=== PATIENT | female | born 1945 | race Caucasian/White ===

== ENCOUNTER 2017-01-22 11:04 | Inpatient (IN) | payer OTHER, MEDICARE ==
[~2017-01-22] VITALS: Ht 160 cm; Wt 63.5 kg
--- NOTE | ~2017-01-22 | EKG ---
[address] [place] [employer] [place] [address] ELECTROCARDIOGRAM REPORT Name: DIANNSAVANAH Room #: 417-I ADM IN ..#: [id number] Admission: 01/22/17 Attend Phys: Judi Patel MD Discharge: Date of : 43 Report #: [id number] THIS REPORT FOR: //name// [facility] Test Date: 2017-01-23 Test Time: 08:28:03 Pat Name: SAVANAH TIDWELL Department: Room: [facility] Gender: F Bat Boy/Girl: danny : 1945 Requested By: José Nicholson Order Number: [id number] MD: Todd Lozano Measurements Intervals [place] Rate: 93 P: 72 [place]: 199 QRS: 72 QRSD: 107 T: 0 QT: 346 QTc: 431 Interpretive Statements Sinus rhythm Probable left atrial enlargement Borderline T abnormalities, inferior leads No previous ECG available for comparison Electronically Signed On 01-24-2017 9:11:01 CDT by Todd Lozano [email or web address] <ELECTRONICALLY SIGNED> By: Todd Lozano MD, [facility] 01/24/17 0911 7 7 Todd Lozano MD, [facility] /EPI
--- NOTE | ~2017-01-22 | EKG ---
[address] [place] [address] ELECTROCARDIOGRAM REPORT Name: SWAPNIL TIDWELLZABETH Loki Room #: 417-I ADM IN ..#: [id number] Admission: 01/22/17 Attend Phys: Buck Vieyra MD Discharge: Date of : 43 Report #: [id number] THIS REPORT FOR: //name// [facility] ED Test Date: 2017-01-22 Test Time: 11:14:29 Pat Name: SAVANAH TIDWELL Department: Room: [facility] Gender: F Card Services Specialist: Eloy FU : 1945 Requested By: Jose Alberto Monique Order Number: [id number] MD: Todd Lozano Measurements Intervals [place] Rate: 106 P: 81 VA: 205 QRS: 79 QRSD: 109 T: 11 QT: 323 QTc: 429 Interpretive Statements Sinus tachycardia Nonspecific ST segment abnormality No previous ECG available for comparison Electronically Signed On 01-23-2017 15:03:38 CDT by Todd Lozano [email or web address] <ELECTRONICALLY SIGNED> By: Todd Lozano MD, [facility] 01/23/17 1503 1114 1114 Todd Lozano MD, FACC /EPI
--- NOTE | ~2017-01-22 | HC ---
[facility] [place] [address] CONSULTATION Name: SAVANAH TIDWELL Room #: 417-I ADM IN M.R.#: [id number] Admission: 01/22/17 Attend Phys: Buck Vieyra MD Discharge: Date of : 43 Report #: [id number] THIS REPORT FOR: //name// CC: Kurt Vieyra REASON FOR CONSULTATION: Pneumonia. IMPRESSION: 1. Community-acquired pneumonia. 2. Exacerbation of chronic obstructive pulmonary disease. 3. Possible sinusitis. 4. Hyponatremia. 5. Leukocytosis. 6. Tobacco use. 7. Hypertension. 8. Anemia. 9. History of pulmonary nodule. 10. Coronary atherosclerosis. PLAN: We will use Unasyn, azithro, Mucinex. We will do corticosteroids. We will hold off on her Symbicort while here and do levalbuterol, budesonide and ipratropium bromide. We will do the usual DVT and ulcer prophylaxis. We will send off cultures. HISTORY: A very pleasant 71-year-old female comes in with progressive shortness of breath, cough, sputum production. Her also had similar illness; however, recovered from it. She denies any definite chest pain or palpitations. No nausea or vomiting. Her allergies have been bothering her somewhat. HOME MEDICATIONS: Included losartan, potassium, hydrochlorothiazide, vitamin D, verapamil, nicotine patch, atorvastatin, ProAir, Symbicort, aspirin, calcium. PAST MEDICAL HISTORY: Include hypertension, allergies, bronchitis, thoracic abdominal aortic aneurysm 4.5 x 4.8, and diaphragmatic hiatus. PAST SURGICAL HISTORY: Include biopsy of breast in 69 and 84 and eye surgery. FAMILY HISTORY: Positive for diabetes, hypertension, renal failure. 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 ALLERGIES: KEFLEX with diarrhea. REVIEW OF SYSTEMS: Positive for cough, shortness of breath and discolored sputum. No definite chest pain. Positive cough, sputum production. No [facility] or [facility] [address] [place] [address] CONSULTATION Name: SAVANAH TIDWELL Room #: 417-I [facility] IN [facility]#: [id number] Admission: 01/22/17 Attend Phys: Buck Vieyar MD Discharge: Date of : 43 Report #: [id number] cold intolerance. PHYSICAL EXAMINATION: VITAL SIGNS: T-max 99.4, pulse 99, respirations 18, BP 152/77. GENERAL: She looks very tired compared to when I saw her last year and she relates it is because of what has been going on and otherwise she has been doing great. HEENT: sinuses tender. Posterior pharynx, no thrush. LUNGS: Coarse wheeze bilateral. HEART: Regular. ABDOMEN: Bowel sounds Present. EXTREMITIES: Showed no calf tenderness or edema. She is alert, oriented. EKG showed sinus tach, probable left atrial enlargement. ABG showed pH of 7.48, pCO2 of 34, and pO2 53. Chest x-ray showed bilateral infiltrates. White count 13.9, hemoglobin 14, platelets 279, BUN 9, creatinine 0.5, sodium 124, potassium 3.4, ProBNP 383. I appreciate the opportunity to assist in care of your patient. <ELECTRONICALLY SIGNED> By: José Nicholson MD 01/24/17 0548 1714 2337 José Nicholson MD /nt
[2017-01-22 11:34] LABS: ABG SAMPLE TYPE ARTERIAL; BE(vivo) 1.9 mmol/L (-2 to +3); HCO3 24.8 mmol/L (22.0-26.0); O2(CT) 17.5 mL/dL (15.0-23.0); PCO2 33.8 mmHg (35.0-45.0); pH 7.483 (7.360-7.450); sO2 90.2 % (92.0-98.0); tCO2 25.8 mmol/L (24.0-30.0)
[2017-01-22 11:35] LABS: O2Hb 84.9 % (92.0-98.0); PO2 53.3 mmHg (80.0-100.0); STICK SITE L.RADIAL
[2017-01-22 11:37] VITALS: BP 125/78
[2017-01-22 12:10] LABS: HEMATOCRIT 40.6 % (37.0-47.0); MCH 31.8 pg (26.0-34.0); MCHC 34.4 g/dL (28.0-37.0); MCV 92.5 fL (80.0-100.0); RBC 4.39 mil/uL (4.20-5.00); RDW 15.2 % (10.5-14.5); WBC 13.9 thou/uL (4.0-11.0)
[2017-01-22] MEDS ORDERED: SYMBICORT160 MCG/4. INH (12:10)
[2017-01-22] MEDS ORDERED: HYDROCHLOROTH12.5 M2 PO (12:11)
[2017-01-22] MEDS ORDERED: VERAPAMIL ER180 MG PO (12:11)
[2017-01-22] MEDS ORDERED: LIPITOR 20 MG T20 M1 PO (12:11)
[2017-01-22] MEDS ORDERED: K-DUR 20 MEQ T20 MEQ PO (12:11)
[2017-01-22] MEDS ORDERED: UNICOMPLEX M TA1 TA1 PO (12:12)
[2017-01-22] MEDS ORDERED: ASPIR 8181 M1 PO (12:12)
[2017-01-22] MEDS ORDERED: VENTOLIN HFA 1818 GM INH (12:13)
[2017-01-22 12:21] LABS: CALCIUM 8.9 mg/dL (8.5-10.1); CREATININE 0.5 mg/dL (0.6-1.0); POTASSIUM 3.4 mmol/L (3.5-5.1)
[2017-01-22 13:59] VITALS: BP 145/71
[2017-01-22 14:22] VITALS: BP 148/72
[2017-01-22] MEDS ORDERED: COZAAR 50 MG TA50 M1 PO (14:53)
[2017-01-22 15:39] VITALS: BP 152/77
[2017-01-22 18:35] LABS: ALBUMIN 3.1 g/dL (3.4-5.0); DIRECT BILIRUBIN 0.2 mg/dL (<0.1-0.3); TOTAL BILIRUBIN 0.5 mg/dL (<0.1-1.0); TOTAL PROTEIN 6.5 g/dL (6.4-8.2)
[2017-01-22 20:00] VITALS: BP 139/67
[2017-01-23 04:30] VITALS: BP 143/82
[2017-01-23 05:53] LABS: HEMATOCRIT 36.2 % (37.0-47.0); HEMOGLOBIN 12.7 gm/dL (12.0-15.0); MCH 32.5 pg (26.0-34.0); MCV 92.9 fL (80.0-100.0); PLATELET COUNT 278 thou/uL (150-400); RDW 14.7 % (10.5-14.5); WBC 13.8 thou/uL (4.0-11.0)
[2017-01-23 05:54] LABS: MANUAL DIFF YES
[2017-01-23 06:17] LABS: CREATININE 0.6 mg/dL (0.6-1.0); MAGNESIUM 1.8 mg/dL (1.8-2.4); POTASSIUM 3.8 mmol/L (3.5-5.1); TROPONIN-I < 0.04 ng/mL (<0.04-0.07)
[2017-01-23 07:13] VITALS: BP 155/79
[2017-01-23 09:29] LABS: ABSOLUTE NEUTROPHILS 12.8 thou/uL (1.4-8.2); ANISOCYTOSIS 1+; METAMYELOCYTES 1 %; TOTAL CELL COUNT 100
[2017-01-23 15:37] VITALS: BP 103/58
[2017-01-23 20:00] VITALS: BP 141/66
[2017-01-24 04:00] VITALS: BP 143/77
[2017-01-24 05:43] LABS: HEMATOCRIT 36.5 % (37.0-47.0); HEMOGLOBIN 12.3 gm/dL (12.0-15.0); MANUAL DIFF YES; MCH 31.8 pg (26.0-34.0); MCHC 33.7 g/dL (28.0-37.0); MCV 94.3 fL (80.0-100.0); PLATELET COUNT 299 thou/uL (150-400); RBC 3.87 mil/uL (4.20-5.00); RDW 15.2 % (10.5-14.5); WBC 13.3 thou/uL (4.0-11.0)
[2017-01-24 05:52] LABS: CREATININE 0.6 mg/dL (0.6-1.0); POTASSIUM 4.2 mmol/L (3.5-5.1)
[2017-01-24 07:19] VITALS: BP 166/93
[2017-01-24 08:54] LABS: ABSOLUTE NEUTROPHILS 11.6 thou/uL (1.4-8.2); ANISOCYTOSIS 1+; ATYPICAL LYMPHS 1 %; TOTAL CELL COUNT 100
[2017-01-24 20:00] VITALS: BP 161/78
[2017-01-24 21:37] LABS: ABG SAMPLE TYPE ARTERIAL; BE(vivo) 4.4 mmol/L (-2 to +3); HCO3 30.4 mmol/L (22.0-26.0); LACTATE 1.39 mmol/L (0.5-2.0); O2Hb 93.7 % (92.0-98.0); PCO2 51.1 mmHg (35.0-45.0); PO2 76.3 mmHg (80.0-100.0); pH 7.393 (7.360-7.450)
[2017-01-24 21:38] LABS: STICK SITE LRA
[2017-01-25 03:43] VITALS: BP 161/92
[2017-01-25 06:55] LABS: HEMATOCRIT 38.6 % (37.0-47.0); MCH 31.8 pg (26.0-34.0); MCHC 33.8 g/dL (28.0-37.0); RBC 4.1 mil/uL (4.20-5.00); RDW 15.1 % (10.5-14.5); WBC 13.6 thou/uL (4.0-11.0)
[2017-01-25 07:08] VITALS: BP 180/110
[2017-01-25 07:23] LABS: CALCIUM 8.8 mg/dL (8.5-10.1); CREATININE 0.5 mg/dL (0.6-1.0); POTASSIUM 4.5 mmol/L (3.5-5.1)
[2017-01-25 16:31] VITALS: BP 156/82
[2017-01-25 20:00] VITALS: BP 187/83
[2017-01-25 22:06] LABS: INFLUENZA B Negative (Negative); METAPNEUMOVIRUS Negative (Negative)
[2017-01-26 04:56] VITALS: BP 167/76
[2017-01-26 05:58] LABS: HEMATOCRIT 37.7 % (37.0-47.0); HEMOGLOBIN 12.6 gm/dL (12.0-15.0); MCH 31.7 pg (26.0-34.0); MCHC 33.6 g/dL (28.0-37.0); MCV 94.5 fL (80.0-100.0); RBC 3.99 mil/uL (4.20-5.00); RDW 14.9 % (10.5-14.5); WBC 11.5 thou/uL (4.0-11.0)
[2017-01-26 06:14] LABS: CALCIUM 8.2 mg/dL (8.5-10.1); CREATININE 0.4 mg/dL (0.6-1.0); POTASSIUM 4.1 mmol/L (3.5-5.1)
[2017-01-26 06:57] VITALS: BP 173/87
[2017-01-26 07:01] VITALS: BP 182/97
[2017-01-26 16:11] VITALS: BP 159/92
[2017-01-26 20:00] VITALS: BP 155/70
[2017-01-27 03:20] VITALS: BP 158/81
[2017-01-27 07:30] VITALS: BP 175/83
[2017-01-27 17:59] VITALS: BP 164/71
[2017-01-27 21:00] VITALS: BP 146/72
[2017-01-28 04:30] VITALS: BP 170/87
[2017-01-28 07:06] VITALS: BP 197/102
[2017-01-28 17:01] VITALS: BP 197/102
[2017-01-28 20:21] VITALS: BP 154/78
[2017-01-29 04:08] LABS: HEMATOCRIT 40.7 % (37.0-47.0); HEMOGLOBIN 13.8 gm/dL (12.0-15.0); MCH 31.6 pg (26.0-34.0); MCHC 33.8 g/dL (28.0-37.0); MCV 93.3 fL (80.0-100.0); RBC 4.36 mil/uL (4.20-5.00); RDW 14.7 % (10.5-14.5)
[2017-01-29 04:17] LABS: CALCIUM 8.3 mg/dL (8.5-10.1); CREATININE 0.5 mg/dL (0.6-1.0); POTASSIUM 3.7 mmol/L (3.5-5.1)
[2017-01-29 05:33] VITALS: BP 162/76
[2017-01-29] MEDS ORDERED: PREDNISONE 20 M20 M1 PO (07:58)
[2017-01-29] MEDS ORDERED: LEVAQUIN 500 M500 M1 PO (07:58)
[2017-01-29] MEDS ORDERED: FLONASE 0.05%50 MCG NASAL (07:59)
[2017-01-29] MEDS ORDERED: PULMICORT0.5 MG/21 INH (07:59)
[2017-01-29 09:11] VITALS: BP 183/90
[2017-01-29 09:57] VITALS: BP 197/102
== END 2017-01-29 14:47 | disposition home health service (06) | DRG 871 ==
LOC: ER 11:04 → 4E 12:56 → EROBS 12:56 → 4E 14:06
PROVIDERS: Emergency Medicine; Family Medicine; Internal Medicine Endocrinology, Diabetes & Metabolism; Internal Medicine Pulmonary Disease; Nurse Practitioner Acute Care
PROC: 02HV33Z Insertion of Infusion Device into Superior Vena Cava, Percutaneous Approach (ICD-10-PCS; principal; 2017-01-24)
PROC: B548ZZA Ultrasonography of Superior Vena Cava, Guidance (ICD-10-PCS; principal; 2017-01-24)
DX: A41.9 Sepsis, unspecified organism (principal); J18.9 Pneumonia, unspecified organism; J96.01 Acute respiratory failure with hypoxia; E87.1 Hypo-osmolality and hyponatremia; J44.1 Chronic obstructive pulmonary disease with (acute) exacerbation; J44.0 Chronic obstructive pulmonary disease with (acute) lower respiratory infection; I10 Essential (primary) hypertension; D64.9 Anemia, unspecified; I25.10 Atherosclerotic heart disease of native coronary artery without angina pectoris; I71.4 Abdominal aortic aneurysm, without rupture; F17.210 Nicotine dependence, cigarettes, uncomplicated; J32.9 Chronic sinusitis, unspecified; I73.9 Peripheral vascular disease, unspecified; Z88.1 Allergy status to other antibiotic agents; Z88.8 Allergy status to other drugs, medicaments and biological substances; Z82.5 Family history of asthma and other chronic lower respiratory diseases; Z79.82 Long term (current) use of aspirin; Z79.899 Other long term (current) drug therapy; Z83.3 Family history of diabetes mellitus; Z82.49 Family history of ischemic heart disease and other diseases of the circulatory system
CPT/HCPCS: 10183; 27001

== ENCOUNTER 2017-12-06 19:51 | Inpatient (IN) | payer OTHER, MEDICARE ==
[~2017-12-06] VITALS: Ht 165.1 cm; Wt 57.6 kg
--- NOTE | ~2017-12-06 | EKG ---
[address] [address] ELECTROCARDIOGRAM REPORT Name: SWAPNIL TIDWELLZABETH Loki Room #: 439-P ADM IN .R.#: [id number] Admission: 12/06/17 Attend Phys: Mehdi Angela MD Discharge: Date of : 43 Report #: [id number] THIS REPORT FOR: //name// [facility] ED Test Date: 2017-12-06 Test Time: 19:58:49 Pat Name: SAVANAH TIDWELL Department: Room: [facility] Gender: F Bark Fitter: GIGI : 1945 Requested By: Yovany Euceda Order Number: [id number] MD: Todd Lozano Measurements Intervals [place] Rate: 75 P: [place]: QRS: 78 QRSD: 111 T: -6 QT: 384 QTc: 429 Interpretive Statements Atrial fibrillation Poor R wave progression Nonspecific intraventricular conduction delay Compared to ECG 01/23/2017 08:28:03 No significant change was found Electronically Signed On 12-07-2017 8:07:47 HOUSE WORKER GENERAL by Todd Lozano [email or web address] <ELECTRONICALLY SIGNED> By: Todd Lozano MD, [facility] 12/07/17806 57 57 Todd Lozano MD, [facility] /EPI
[~2017-12-06 19:51] MED LIST: ASPIR 8181 M1 PO; COZAAR 50 MG TA50 M1 PO; FLONASE 0.05%50 MCG NASAL; HYDROCHLOROTH12.5 M2 PO; K-DUR 20 MEQ T20 MEQ PO; LEVAQUIN 500 M500 M1 PO; LIPITOR 20 MG T20 M1 PO; PREDNISONE 20 M20 M1 PO; PULMICORT0.5 MG/21 INH; SYMBICORT160 MCG/4. INH; UNICOMPLEX M TA1 TA1 PO; VENTOLIN HFA 1818 GM INH; VERAPAMIL ER180 MG PO
[2017-12-06 19:53] VITALS: BP 142/89
[2017-12-06] MEDS ORDERED: HYDROCHLOROTH12.5 M1 PO (20:16)
[2017-12-06] MEDS ORDERED: SYMBICORT160 MCG/4. INH (20:16)
[2017-12-06 20:37] LABS: ABSOLUTE NEUTROPHILS 7.2 thou/uL (1.4-8.2); BASOPHILS 0.8 % (0.0-2.0); EOSINOPHILS 2.5 % (0.0-3.0); HEMATOCRIT 41.4 % (37.0-47.0); HEMOGLOBIN 14.2 gm/dL (12.0-15.0); MCH 32.3 pg (26.0-34.0); MCHC 34.2 g/dL (28.0-37.0); MCV 94.4 fL (80.0-100.0); MONOCYTES 8.5 % (1.0-8.0); PLATELET COUNT 321 thou/uL (150-400); POLYS 74.2 % (36.0-66.0); RBC 4.39 mil/uL (4.20-5.00); RDW 15.6 % (10.5-14.5); WBC 9.7 thou/uL (4.0-11.0)
[2017-12-06 20:41] LABS: CALCIUM 9.9 mg/dL (8.5-10.1); CREATININE 0.4 mg/dL (0.6-1.0); POTASSIUM 3.4 mmol/L (3.5-5.1)
[2017-12-06 20:54] LABS: BE(vivo) 1.4 mmol/L (-2 to +3); HCO3 27.2 mmol/L (22.0-26.0); PCO2 47.2 mmHg (35.0-45.0); PO2 83.9 mmHg (80.0-100.0); pH 7.378 (7.360-7.450)
[2017-12-06 21:24] VITALS: BP 158/71
[2017-12-06 21:36] VITALS: BP 144/66
[2017-12-06] MEDS ORDERED: XANAX 0.5 MG0.5 MG PO (22:07)
[2017-12-06 22:10] VITALS: BP 151/85
[2017-12-07 03:56] VITALS: BP 122/90
[2017-12-07 06:31] LABS: CALCIUM 9.3 mg/dL (8.5-10.1); CREATININE 0.5 mg/dL (0.6-1.0); MAGNESIUM 2.1 mg/dL (1.8-2.4)
[2017-12-07 06:38] LABS: POTASSIUM 4.9 mmol/L (3.5-5.1)
[2017-12-07 07:35] VITALS: BP 147/83
[2017-12-07 16:00] VITALS: BP 116/66
[2017-12-07 21:25] VITALS: BP 116/50
[2017-12-08 05:02] VITALS: BP 140/74
[2017-12-08 05:48] LABS: HEMATOCRIT 39.4 % (37.0-47.0); HEMOGLOBIN 13.4 gm/dL (12.0-15.0); MCH 32.1 pg (26.0-34.0); MCHC 33.9 g/dL (28.0-37.0); MCV 94.8 fL (80.0-100.0); RBC 4.16 mil/uL (4.20-5.00); RDW 15.5 % (10.5-14.5); WBC 9.5 thou/uL (4.0-11.0)
[2017-12-08 06:36] LABS: ALBUMIN 3.6 g/dL (3.4-5.0); CALCIUM 9.5 mg/dL (8.5-10.1); CREATININE 0.6 mg/dL (0.6-1.0); MAGNESIUM 2.3 mg/dL (1.8-2.4); POTASSIUM 4.4 mmol/L (3.5-5.1); TOTAL BILIRUBIN 0.5 mg/dL (<0.1-1.0); TOTAL PROTEIN 6.6 g/dL (6.4-8.2)
[2017-12-08 06:40] LABS: TSH 1.665 uIU/mL (0.358-3.740)
[2017-12-08 09:16] VITALS: BP 140/77
[2017-12-08 16:38] VITALS: BP 133/63
[2017-12-08 19:54] VITALS: BP 125/73
[2017-12-09 03:31] VITALS: BP 145/79
[2017-12-09 08:45] VITALS: BP 130/63
[2017-12-09 15:47] VITALS: BP 138/56
[2017-12-09 19:21] VITALS: BP 145/75
[2017-12-09 23:10] LABS: ADENOVIRUS Negative (Negative); INFLUENZA A Negative (Negative); INFLUENZA B Negative (Negative); METAPNEUMOVIRUS Negative (Negative); PARAINFLUENZA 1 Negative (Negative); PARAINFLUENZA 2 Negative (Negative); PARAINFLUENZA 3 Negative (Negative); RHINOVIRUS Negative (Negative); RSV A Negative (Negative); RSV B Negative (Negative)
[2017-12-10 03:09] VITALS: BP 132/69
[2017-12-10 05:55] LABS: ABSOLUTE NEUTROPHILS 7.8 thou/uL (1.4-8.2); BASOPHILS 0.1 % (0.0-2.0); HEMATOCRIT 39.1 % (37.0-47.0); HEMOGLOBIN 13.2 gm/dL (12.0-15.0); LYMPHOCYTES 5.3 % (24.0-44.0); MCH 32.1 pg (26.0-34.0); MCHC 33.9 g/dL (28.0-37.0); MCV 94.7 fL (80.0-100.0); PLATELET COUNT 289 thou/uL (150-400); POLYS 91.6 % (36.0-66.0); RBC 4.13 mil/uL (4.20-5.00); RDW 15.8 % (10.5-14.5); WBC 8.5 thou/uL (4.0-11.0)
[2017-12-10 06:12] LABS: CALCIUM 9.5 mg/dL (8.5-10.1); CREATININE 0.6 mg/dL (0.6-1.0)
[2017-12-10 06:49] VITALS: BP 148/73
[2017-12-10 15:40] VITALS: BP 117/62
[2017-12-10 20:17] VITALS: BP 139/71
[2017-12-11 04:16] VITALS: BP 138/72
[2017-12-11 07:40] VITALS: BP 157/82
[2017-12-11 16:10] VITALS: BP 142/70
[2017-12-11 20:11] VITALS: BP 147/72
[2017-12-12 04:07] VITALS: BP 139/66
[2017-12-12 07:50] VITALS: BP 153/74
[2017-12-12 15:15] VITALS: BP 152/89
[2017-12-12 16:56] VITALS: BP 152/89
[2017-12-12] MEDS ORDERED: MEDROL DOSPAK21 TA1 PO (17:07)
[2018-05-23] MEDS ORDERED: K-DUR 20 MEQ T20 MEQ PO (18:07)
[2018-05-23] MEDS ORDERED: XANAX 0.25 MG0.25 MG PO (18:07)
[2018-05-23] MEDS ORDERED: PREDNISONE 20 M20 MG PO (18:07)
[2018-05-30] MEDS ORDERED: LEVAQUIN 500 M500 M1 PO (15:19)
[2018-05-30] MEDS ORDERED: NICOTINE TRANSD14 M1 TRANSDERM (15:20)
[2018-05-30] MEDS ORDERED: COZAAR 50 MG TA50 M1 PO (15:21)
[2018-05-30] MEDS ORDERED: VERAPAMIL E.R240 M1 PO (15:21)
[2018-05-30] MEDS ORDERED: CLONAZEPAM 0.50.5 M1 PO (15:22)
[2018-05-30] MEDS ORDERED: PERFOROMIS20 MCG/2 M INH (15:23)
[2018-05-30] MEDS ORDERED: LONHALA MA25 MCG/1 M INH (15:24)
[2018-05-30] MEDS ORDERED: PREDNISONE 10 M10 MG PO (15:25)
[2018-05-30] MEDS ORDERED: HYDRALAZINE 2525 MG PO (15:27)
== END 2017-12-12 19:00 | disposition home or self-care (01) | DRG 871 ==
LOC: ER 19:51 → 4S 21:18 → EROBS 21:18 → 4S 21:41
PROVIDERS: Family Medicine; Hospitalist; Nurse Practitioner Acute Care; Physician Assistant; Registered Nurse
DX: A41.9 Sepsis, unspecified organism (principal); J96.21 Acute and chronic respiratory failure with hypoxia; J44.1 Chronic obstructive pulmonary disease with (acute) exacerbation; I10 Essential (primary) hypertension; E87.6 Hypokalemia; M62.84 Sarcopenia; F41.9 Anxiety disorder, unspecified; T50.905A Adverse effect of unspecified drugs, medicaments and biological substances, initial encounter; Z79.899 Other long term (current) drug therapy; Z88.1 Allergy status to other antibiotic agents; Z88.8 Allergy status to other drugs, medicaments and biological substances; Z87.891 Personal history of nicotine dependence; Z82.5 Family history of asthma and other chronic lower respiratory diseases; Y92.89 Other specified places as the place of occurrence of the external cause
CPT/HCPCS: 10100

== ENCOUNTER → 2018-03-14 | Outpatient (CLI) | payer OTHER, MEDICARE ==
[~2018-03-14] MED LIST changes: +HYDROCHLOROTH12.5 M1 PO; +MEDROL DOSPAK21 TA1 PO; +XANAX 0.5 MG0.5 MG PO
== END ==
LOC: RAD 02:20
DX: Z12.31 Encounter for screening mammogram for malignant neoplasm of breast (principal); R92.1 Mammographic calcification found on diagnostic imaging of breast

== ENCOUNTER → 2018-05-10 | Outpatient (CLI) | payer OTHER, MEDICARE | LOC: RAD 12:07 | DX: R06.02 Shortness of breath (principal); R91.8 Other nonspecific abnormal finding of lung field ==

== ENCOUNTER 2018-07-22 10:27 | Inpatient (IN) | payer OTHER, MEDICARE ==
[~2018-07-22] VITALS: Ht 160 cm; Wt 57.2 kg
--- NOTE | ~2018-07-22 | EKG ---
[address] [address] ELECTROCARDIOGRAM REPORT Name: TIDWELLSAVANAH Room #: 353-P ADM IN .R.#: [id number] Admission: 07/22/18 Attend Phys: Rudi Ma MD Discharge: Date of : 43 Report #: [id number] THIS REPORT FOR: //name// [facility] Test Date: 2018-07-23 Test Time: 11:11:54 Pat Name: SAVANAH TIDWELL Department: Room: 353 Gender: F Sales Consultant: KAT : 1945 Requested By: Rudi Ma Order Number: [id number] MD: Mike Hugo Measurements Intervals [place] Rate: 122 P: 60 [place]: 170 QRS: 81 QRSD: 105 T: 244 QT: 317 QTc: 452 Interpretive Statements Sinus tachycardia Frequent PACs and runs of atrial tachcyardia Probable left atrial enlargement Electronically Signed On 07-24-2018 8:34:37 CDT by Mike Hugo [email or web address] <ELECTRONICALLY SIGNED> By: Mike Hugo MD 07/24/18 0834 1111 1111 Mike Hugo MD /TEA
--- NOTE | ~2018-07-22 | EKG ---
[address] [address] ELECTROCARDIOGRAM REPORT Name: SAVANAH TIDWELL Room #: 353-P ADM IN M.R.#: [id number] Admission: 07/22/18 Attend Phys: Rudi Ma MD Discharge: Date of : 43 Report #: [id number] THIS REPORT FOR: //name// [facility] Test Date: 2018-07-24 Test Time: 10:18:29 Pat Name: SAVANAH TIDWELL Department: Room: 353 Gender: F Ground Crewman: Eloisa PRASAD : 1945 Requested By: Todd Lozano Order Number: [id number] MD: Mike Hugo Measurements Intervals [place] Rate: 120 P: VA: QRS: 76 QRSD: 100 T: 265 QT: 325 QTc: 460 Interpretive Statements Atrial fibrillation Nonspecific repol abnormality, lateral leads Compared to ECG 07/23/2018 11:11:54 Right ventricular hypertrophy now present Early repolarization now present Sinus tachycardia no longer present Electronically Signed On 07-24-2018 13:27:02 CDT by Mike Hugo [email or web address] <ELECTRONICALLY SIGNED> By: Mike Hugo MD 07/24/18 1327 1018 1018 Mike Hugo MD /EPI
--- NOTE | ~2018-07-22 | 2DMMODE ---
[facility] [address] [place] [address] 2 D/M-MODE ECHOCARDIOGRAM Name: DIANNSAVANAH Loki Room #: 353-P ADM IN M.R.#: [id number] Admission: 07/22/18 Attend Phys: Rudi Ma MD Discharge: Date of : 43 Date of Service: 07/25/18 0946 Report #: [id number] THIS REPORT FOR: //name// APPROVED REPORT Study performed: 07/25/2018 08:49:14 EXAM: Comprehensive 2D, Doppler, and color-flow Echocardiogram Patient Location: Echo lab Room #: 353 Status: routine BSA: 1.59 HR: 87 bpm BP: 137/74 mmHg Rhythm: NSR/some arrhythmia noted. Other Information Study Quality: Good Indications Short of breath, CHF, tachycardia. Hx: COPD, HTN 2D Dimensions RVDd: 29.92 mm IVSd: 10.49 (7-11mm) LVOT Diam: 20.22 (18-24mm) LVDd: 47.95 mm PWd: 10.46 (7-11mm) LVDs: 33.24 (25-40mm) Aortic Root: 34.89 mm Volumes Left Atrial Volume (Systole) Single Plane 4CH: 43.21 mL Single Plane 2CH: 50.54 mL LA ESV Index: 31.00 mL/m2 Aortic Valve AoV Peak Deondre.: 1.58 m/s AO Peak Gr.: 9.92 mmHg LVOT Max P.09 mmHg LVOT Max V: 1.23 m/s CORNELIUS Vmax: 2.52 cm2 Mitral Valve E/A Ratio: 0.6 MV Decel. Time: 312.17 ms MV E Max Deondre.: 0.78 m/s [facility] [address] [place] [address] 2 D/M-MODE ECHOCARDIOGRAM Name: SAVANAH TIDWELL Room #: 353-P [facility] IN [facility].#: [id number] Admission: 07/22/18 Attend Phys: Rudi Ma MD Discharge: Date of : 43 Date of Service: 07/25/18 0946 Report #: [id number] MV A Deondre.: 1.38 m/s MV PHT: 90.53 ms IVRT: 83.04 ms Pulmonary Valve PV Peak Deondre.: 1.65 m/s PV Peak Gr.: 10.83 mmHg Pulmonary Vein P Vein S: 0.64 m/s P Vein D: 0.47 m/s P Vein S/D Ratio: 1.36 Tricuspid Valve TR Peak Deondre.: 3.54 m/s RAP Estimate: 5.00 mmHg TR Peak Gr.: 50.15 mmHg PA Pressure: 55.00 mmHg Left Ventricle The left ventricle is normal size. There is normal LV segmental wall motion. There is normal left ventricular wall thickness. Left ventricular systolic function is normal. LVEF is 55-60%. Mild diastolic dysfunction is present (impaired relaxation pattern). Right Ventricle The right ventricle is normal size. The right ventricular systolic function is normal. Atria The left atrium size is normal. The right atrium size is normal. Aortic Valve Aortic valve is mildly calcified, trileaflet. Trace aortic regurgitation. There is no aortic valvular stenosis. Mitral Valve Mild mitral annular calcification. Trace mitral regurgitation. No evidence of mitral valve stenosis. Tricuspid Valve The tricuspid valve is normal in structure. Mild to moderate tricuspid regurgitation. Estimated PAP is 50-55mmHg. Pulmonic Valve Pulmonic valve is not well visualized. [place] [address] 2 D/M-MODE ECHOCARDIOGRAM Name: DIANNSAVANAH Room #: 353-P [facility] IN M.R.#: [id number] Admission: 07/22/18 Attend Phys: Rudi Ma MD Discharge: Date of : 43 Date of Service: 07/25/18 0946 Report #: [id number] regurgitation noted. Great Vessels The aortic root is normal in size. Ascending aorta is not well visualized. IVC is normal in size and collapses >50% with inspiration. Pericardium There is no pericardial effusion. <Conclusion> Left ventricular systolic function is normal. There is normal LV segmental wall motion. LVEF is 55-60%. Mild diastolic dysfunction Aortic valve is mildly calcified, trileaflet. Trace aortic regurgitation, no stenosis Mild mitral annular calcification. No mitral regurgitation. Mild to moderate tricuspid regurgitation. Estimated pulmonary artery pressure of 50-55mmHg. There is no pericardial effusion. <ELECTRONICALLY SIGNED> By: Todd Lozano MD, FACC 07/25/18945 5 5 Todd Lozano MD, FACC /INF
--- NOTE | ~2018-07-22 | EKG ---
[address] [address] ELECTROCARDIOGRAM REPORT Name: SAVANAH TIDWELL Room #: 353-P ADM IN ..#: [id number] Admission: 07/22/18 Attend Phys: Rudi Ma MD Discharge: Date of : 43 Report #: [id number] THIS REPORT FOR: //name// [facility] ED Test Date: 2018-07-22 Test Time: 10:52:32 Pat Name: SAVANAH TIDWELL Department: Room: [facility] Gender: F Fence Supervisor: JESSICA : 1945 Requested By: Jose Alberto Monique Order Number: [id number] MD: Mike Hugo Measurements Intervals [place] Rate: 107 P: 83 [place]: 189 QRS: 97 QRSD: 97 T: -89 QT: 358 QTc: 478 Interpretive Statements Sinus tachycardia Atrial premature complexes Inferior infarct, age indeterminate Lateral leads are also involved Compared to ECG 05/25/2018 10:45:52 Myocardial infarct finding now present Sinus rhythm no longer present Atrial abnormality no longer present ST (T wave) deviation no longer present Electronically Signed On 07-24-2018 8:29:19 CDT by Mike Hugo [email or web address] <ELECTRONICALLY SIGNED> By: Mike Hugo MD 07/24/18 0829 51 105 Mike Hugo MD /EPI
--- NOTE | ~2018-07-22 | EKG ---
[address] [place] [address] ELECTROCARDIOGRAM REPORT Name: TIDWELLSAVANAH Loki Room #: 353-P ADM IN M.R.#: [id number] Admission: 07/22/18 Attend Phys: Rudi Ma MD Discharge: Date of : 43 Report #: [id number] THIS REPORT FOR: //name// [facility] Test Date: 2018-07-25 Test Time: 07:14:08 Pat Name: SAVANAH TIDWELL Department: Room: 353 P Gender: F Reducing Salon Attendant: GABRIEL : 1945 Requested By: Todd Lozano Order Number: [id number] MD: Todd Lozano Measurements Intervals [place] Rate: 68 P: 47 [place]: 191 QRS: 59 QRSD: 110 T: 268 QT: 407 QTc: 433 Interpretive Statements Sinus rhythm Nonspecific ST and T wave abnormality Baseline wander in lead(s) V5,V6 Compared to ECG 07/24/2018 10:18:29 Atrial fibrillation no longer present Electronically Signed On 07-25-2018 8:19:10 CDT by Todd Lozano [email or web address] <ELECTRONICALLY SIGNED> By: Todd Lozano MD, [facility] 07/25/18 0819 0714 Todd Lozano MD, [facility] /EPI
[~2018-07-22 10:27] MED LIST changes: +CLONAZEPAM 0.50.5 M1 PO; +HYDRALAZINE 2525 MG PO; +LONHALA MA25 MCG/1 M INH; +NICOTINE TRANSD14 M1 TRANSDERM; +PERFOROMIS20 MCG/2 M INH; +PREDNISONE 10 M10 MG PO; +PREDNISONE 20 M20 MG PO; +VERAPAMIL E.R240 M1 PO; +XANAX 0.25 MG0.25 MG PO
[2018-07-22 10:28] VITALS: BP 190/113
[2018-07-22 11:21] LABS: MCH 31.8 pg (26.0-34.0); MCHC 34.1 g/dL (28.0-37.0); MCV 93.2 fL (80.0-100.0); RBC 4.08 mil/uL (4.20-5.00); RDW 17.2 % (10.5-14.5)
[2018-07-22 11:23] LABS: BE(vivo) 3.3 mmol/L (-2 to +3); PCO2 48.2 mmHg (35.0-45.0); PO2 91.3 mmHg (80.0-100.0); pH 7.397 (7.360-7.450); sO2 96.9 % (92.0-98.0)
[2018-07-22 11:33] LABS: ANION GAP 6 mmol/L (7-16); BUN 14 mg/dL (7-18); CALCIUM 9.9 mg/dL (8.5-10.1); CHLORIDE 97 mmol/L (98-107); CO2 31 mmol/L (21-32); CREATININE 0.5 mg/dL (0.6-1.0); GLUCOSE 150 mg/dL (74-106); POTASSIUM 3.5 mmol/L (3.5-5.1); SODIUM 134 mmol/L (136-145); TROPONIN-I <0.06 ng/mL (<0.06)
[2018-07-22] MEDS ORDERED: PAXIL10 MG PO (12:00)
[2018-07-22 13:15] VITALS: BP 106/63
[2018-07-22 14:13] VITALS: BP 146/89
[2018-07-22 14:33] VITALS: BP 166/97
[2018-07-22 18:12] VITALS: BP 137/81
[2018-07-22] MEDS ORDERED: KLOR-CON M2020 MEQ PO (18:34)
[2018-07-22 19:34] VITALS: BP 112/71
[2018-07-23 04:15] VITALS: BP 120/73
[2018-07-23 04:49] LABS: BE(vivo) 2.6 mmol/L (-2 to +3); HCO3 27.3 mmol/L (22.0-26.0); PCO2 42.1 mmHg (35.0-45.0); PO2 113.2 mmHg (80.0-100.0); pH 7.429 (7.360-7.450); sO2 98.2 % (92.0-98.0)
[2018-07-23 05:49] LABS: HEMATOCRIT 34.2 % (37.0-47.0); HEMOGLOBIN 11.6 gm/dL (12.0-15.0); MCH 31.7 pg (26.0-34.0); MCHC 33.8 g/dL (28.0-37.0); MCV 93.6 fL (80.0-100.0); RBC 3.65 mil/uL (4.20-5.00); WBC 5.2 thou/uL (4.0-11.0)
[2018-07-23 05:58] LABS: CALCIUM 9.2 mg/dL (8.5-10.1); CREATININE 0.5 mg/dL (0.6-1.0); POTASSIUM 3.6 mmol/L (3.5-5.1)
[2018-07-23 07:41] VITALS: BP 146/79
[2018-07-23 09:50] VITALS: BP 146/79
[2018-07-23 11:21] VITALS: BP 111/79
[2018-07-23 11:50] LABS: TROPONIN-I <0.06 ng/mL (<0.06)
[2018-07-23 15:37] VITALS: BP 118/64
[2018-07-23 19:21] VITALS: BP 126/65
[2018-07-24 03:23] VITALS: BP 139/79
[2018-07-24 06:37] LABS: ANION GAP 7 mmol/L (7-16); BUN 30 mg/dL (7-18); CALCIUM 9.1 mg/dL (8.5-10.1); CHLORIDE 100 mmol/L (98-107); CO2 27 mmol/L (21-32); CREATININE 0.7 mg/dL (0.6-1.0); GLUCOSE 137 mg/dL (74-106); MAGNESIUM 2.1 mg/dL (1.8-2.4); POTASSIUM 4.1 mmol/L (3.5-5.1); SODIUM 134 mmol/L (136-145); TROPONIN-I <0.06 ng/mL (<0.06)
[2018-07-24 07:38] VITALS: BP 139/79
[2018-07-24 11:08] VITALS: BP 125/56
[2018-07-24 15:25] VITALS: BP 90/57
[2018-07-24 19:22] VITALS: BP 118/60
[2018-07-25 03:30] VITALS: BP 135/75
[2018-07-25 03:38] LABS: HEMATOCRIT 36.3 % (37.0-47.0); HEMOGLOBIN 12.4 gm/dL (12.0-15.0); MCH 32.1 pg (26.0-34.0); MCHC 34.2 g/dL (28.0-37.0); MCV 93.9 fL (80.0-100.0); RBC 3.87 mil/uL (4.20-5.00); RDW 17.6 % (10.5-14.5)
[2018-07-25 03:56] LABS: ANION GAP 8 mmol/L (7-16); BUN 31 mg/dL (7-18); CALCIUM 9.1 mg/dL (8.5-10.1); CHLORIDE 99 mmol/L (98-107); CO2 26 mmol/L (21-32); CREATININE 0.6 mg/dL (0.6-1.0); GLUCOSE 138 mg/dL (74-106); SODIUM 133 mmol/L (136-145); TROPONIN-I <0.06 ng/mL (<0.06)
[2018-07-25 07:48] VITALS: BP 137/74
[2018-07-25 11:25] VITALS: BP 142/71
[2018-07-25 15:22] VITALS: BP 143/73
[2018-07-25 20:05] VITALS: BP 124/66
[2018-07-26 05:11] VITALS: BP 124/72
[2018-07-26 05:50] LABS: HEMATOCRIT 34.2 % (37.0-47.0); HEMOGLOBIN 11.4 gm/dL (12.0-15.0); MCH 31.4 pg (26.0-34.0); MCHC 33.4 g/dL (28.0-37.0); MCV 94.1 fL (80.0-100.0); RBC 3.64 mil/uL (4.20-5.00); RDW 17.1 % (10.5-14.5)
[2018-07-26 06:01] LABS: CALCIUM 8.9 mg/dL (8.5-10.1); CREATININE 0.7 mg/dL (0.6-1.0); POTASSIUM 4.3 mmol/L (3.5-5.1)
[2018-07-26 07:58] VITALS: BP 146/74
[2018-07-26 11:27] VITALS: BP 133/72
[2018-07-26 16:23] VITALS: BP 132/65
[2018-07-26 19:50] VITALS: BP 141/66
[2018-07-27 04:30] VITALS: BP 139/72
[2018-07-27 07:54] VITALS: BP 139/72
[2018-07-27 11:27] VITALS: BP 134/61
[2018-07-27 15:09] VITALS: BP 126/64
[2018-07-27 19:15] VITALS: BP 126/66
[2018-07-28 03:45] VITALS: BP 144/80
[2018-07-28 07:35] LABS: HEMATOCRIT 35.2 % (37.0-47.0); HEMOGLOBIN 11.6 gm/dL (12.0-15.0); MCH 31.1 pg (26.0-34.0); MCV 94.2 fL (80.0-100.0); RBC 3.74 mil/uL (4.20-5.00); RDW 17.1 % (10.5-14.5); WBC 6.7 thou/uL (4.0-11.0)
[2018-07-28 07:47] LABS: CALCIUM 8.5 mg/dL (8.5-10.1); CREATININE 0.6 mg/dL (0.6-1.0); POTASSIUM 3.7 mmol/L (3.5-5.1)
[2018-07-28 07:49] VITALS: BP 127/73
[2018-07-28] MEDS ORDERED: PREDNISONE 20 M20 M1 PO (11:34)
[2018-07-28 12:05] VITALS: BP 146/70
[2018-07-28] MEDS ORDERED: PULMICORT0.5 MG/22 INH (14:25)
[2018-07-28] MEDS ORDERED: INCRUSE ELLI62.5 MCG INH (14:26)
== END 2018-07-28 15:56 | DRG 291 ==
LOC: ER 10:27 → EROBS 12:37 → 3W 12:37
PROVIDERS: Emergency Medicine; Hospitalist; Student in an Organized Health Care Education/Training Program
PROC: 5A09357 Assistance with Respiratory Ventilation, Less than 24 Consecutive Hours, Continuous Positive Airway Pressure (ICD-10-PCS; principal; 2018-07-24)
PROC: 5A09357 Assistance with Respiratory Ventilation, Less than 24 Consecutive Hours, Continuous Positive Airway Pressure (ICD-10-PCS; 2018-07-25)
PROC: 5A09357 Assistance with Respiratory Ventilation, Less than 24 Consecutive Hours, Continuous Positive Airway Pressure (ICD-10-PCS; 2018-07-26)
PROC: 5A09357 Assistance with Respiratory Ventilation, Less than 24 Consecutive Hours, Continuous Positive Airway Pressure (ICD-10-PCS; 2018-07-27)
PROC: 5A09357 Assistance with Respiratory Ventilation, Less than 24 Consecutive Hours, Continuous Positive Airway Pressure (ICD-10-PCS; 2018-07-28)
DX: I11.0 Hypertensive heart disease with heart failure (principal); J96.22 Acute and chronic respiratory failure with hypercapnia; J96.21 Acute and chronic respiratory failure with hypoxia; J44.1 Chronic obstructive pulmonary disease with (acute) exacerbation; I50.33 Acute on chronic diastolic (congestive) heart failure; J45.909 Unspecified asthma, uncomplicated; F41.9 Anxiety disorder, unspecified; E78.5 Hyperlipidemia, unspecified; F17.210 Nicotine dependence, cigarettes, uncomplicated; R91.1 Solitary pulmonary nodule; R00.0 Tachycardia, unspecified; I71.4 Abdominal aortic aneurysm, without rupture; I71.2 Thoracic aortic aneurysm, without rupture; M62.84 Sarcopenia; F32.9 Major depressive disorder, single episode, unspecified; I48.0 Paroxysmal atrial fibrillation; F03.90 Unspecified dementia, unspecified severity, without behavioral disturbance, psychotic disturbance, mood disturbance, and anxiety; J02.9 Acute pharyngitis, unspecified; Z79.899 Other long term (current) drug therapy; Z88.8 Allergy status to other drugs, medicaments and biological substances; Z82.5 Family history of asthma and other chronic lower respiratory diseases; Z79.82 Long term (current) use of aspirin; Z99.81 Dependence on supplemental oxygen; Z71.6 Tobacco abuse counseling
CPT/HCPCS: 10879

== ENCOUNTER → 2018-08-16 | Outpatient (CLI) | payer OTHER, MEDICARE ==
[~2018-08-16] MED LIST changes: +INCRUSE ELLI62.5 MCG INH; +KLOR-CON M2020 MEQ PO; +PAXIL10 MG PO; +PULMICORT0.5 MG/22 INH
== END ==
LOC: CAT 11:04
DX: I25.10 Atherosclerotic heart disease of native coronary artery without angina pectoris (principal); J98.11 Atelectasis; J90 Pleural effusion, not elsewhere classified; I71.2 Thoracic aortic aneurysm, without rupture; R91.1 Solitary pulmonary nodule

== ENCOUNTER 2018-09-08 14:52 | Inpatient (IN) | payer OTHER, MEDICARE ==
[~2018-09-08] VITALS: Ht 160 cm; Wt 62.6 kg
--- NOTE | ~2018-09-08 | EKG ---
[address] [address] ELECTROCARDIOGRAM REPORT Name: SAVANAH TIDWELL Room #: 362- ADM IN .R.#: [id number] Admission: 09/08/18 Attend Phys: Mehdi Angela MD Discharge: Date of : 43 Report #: [id number] THIS REPORT FOR: //name// [facility] Test Date: 2018-09-13 Test Time: 16:53:19 Pat Name: SAVANAH TIDWELL Department: Room: 362 Gender: F Leather Scrubber: Loki BOWDEN : 1945 Requested By: Jessica Sylvester Order Number: [id number] MD: Mike Hugo Measurements Intervals [place] Rate: 77 P: 57 [place]: 200 QRS: 50 QRSD: 105 T: -1 QT: 373 QTc: 423 Interpretive Statements Sinus rhythm with frequent PACs Borderline repolarization abnormality Baseline wander in lead(s) V6 Compared to ECG 09/08/2018 16:30:41 Sinus rhythm no longer present Myocardial infarct finding no longer present Electronically Signed On 09-13-2018 21:09:00 CENTER PUNCH OPERATOR by Mike Hugo [email or web address] <ELECTRONICALLY SIGNED> By: Mike Hugo MD 09/13/18 2109 52 52 Mike Hugo MD /EPI
--- NOTE | ~2018-09-08 | EKG ---
[address] [address] ELECTROCARDIOGRAM REPORT Name: SAVANAH TIDWELL Room #: 464-P ADM IN ..#: [id number] Admission: 09/08/18 Attend Phys: Mehdi Angela MD Discharge: Date of : 43 Report #: [id number] THIS REPORT FOR: //name// [facility] ED Test Date: 2018-09-08 Test Time: 16:30:41 Pat Name: SAVANAH TIDWELL Department: Room: [facility] Gender: F Pesticide Applicator: WG : 1945 Requested By: Jennifer Mendez Order Number: [id number] MD: Mike Hugo Measurements Intervals [place] Rate: 83 P: 64 [place]: 195 QRS: 71 QRSD: 103 T: -6 QT: 369 QTc: 434 Interpretive Statements Sinus rhythm Probable inferior infarct, age indeterminate Compared to ECG 07/25/2018 07:14:08 Myocardial infarct finding now present ST (T wave) deviation no longer present Electronically Signed On 09-10-2018 20:25:39 WIRE FRAME LAMPSHADE MAKER by Mike Hugo [email or web address] <ELECTRONICALLY SIGNED> By: Mike Hugo MD 09/10/18 2025 1630 1630 Mike Hugo MD /EPI
--- NOTE | ~2018-09-08 | EKG ---
[address] [place] [place] [address] ELECTROCARDIOGRAM REPORT Name: TIDWELLSAVANAH Room #: [facility]#: [id number] Admission: 09/08/18 Attend Phys: Discharge: Date of : 43 Report #: [id number] THIS REPORT FOR: //name// [facility] ED Test Date: 2018-09-08 Test Time: 16:30:41 Pat Name: SAVANAH TIDWELL Department: Room: Gender: F Hides Inspector: GREG : 1945 Requested By: Jennifer Mendez Order Number: [id number] MD: Measurements Intervals [place] Rate: 83 P: 64 MS: 195 QRS: 71 QRSD: 103 T: -6 QT: 369 QTc: 434 Interpretive Statements Sinus rhythm Probable inferior infarct, age indeterminate Compared to ECG 07/25/2018 07:14:08 Myocardial infarct finding now present ST (T wave) deviation no longer present [email or web address] By: 1630 1630 Epiphany Epiphany, /EPI
[~2018-09-08 14:52] MED LIST changes: -ALBUTEROL2.5 MG/31 INH; -XANAX1 MG PO
[2018-09-08 14:53] VITALS: BP 116/61
[2018-09-08 15:37] LABS: ABSOLUTE NEUTROPHILS 7.4 thou/uL (1.4-8.2); BASOPHILS 0.7 % (0.0-2.0); EOSINOPHILS 6.8 % (0.0-3.0); HEMOGLOBIN 13.6 gm/dL (12.0-15.0); MCH 31.5 pg (26.0-34.0); MCV 92.8 fL (80.0-100.0); MONOCYTES 9.8 % (1.0-8.0); PLATELET COUNT 258 thou/uL (150-400); POLYS 71.7 % (36.0-66.0); RBC 4.31 mil/uL (4.20-5.00); RDW 15.8 % (10.5-14.5); WBC 10.3 thou/uL (4.0-11.0)
[2018-09-08 15:45] LABS: ANION GAP 1 mmol/L (7-16); BUN 19 mg/dL (7-18); CHLORIDE 99 mmol/L (98-107); CO2 37 mmol/L (21-32); CREATININE 0.5 mg/dL (0.6-1.0); GLUCOSE 129 mg/dL (74-106); SODIUM 137 mmol/L (136-145)
[2018-09-08 15:53] LABS: SGOT 25 U/L (15-37); SGPT 26 U/L (30-65); TOTAL BILIRUBIN 0.6 mg/dL (<0.1-1.0); TROPONIN-I <0.06 ng/mL (<0.06)
[2018-09-08] MEDS ORDERED: XANAX1 MG PO (17:53)
[2018-09-08] MEDS ORDERED: ALBUTEROL2.5 MG/31 INH (17:54)
[2018-09-08 17:59] VITALS: BP 158/75
[2018-09-08 18:18] VITALS: BP 164/68
[2018-09-08 18:49] VITALS: BP 143/64
[2018-09-09 04:34] VITALS: BP 121/69
[2018-09-09 05:35] VITALS: BP 105/50
[2018-09-09 05:44] LABS: HEMATOCRIT 39.9 % (37.0-47.0); HEMOGLOBIN 13.5 gm/dL (12.0-15.0); MCH 31.4 pg (26.0-34.0); MCHC 33.8 g/dL (28.0-37.0); RBC 4.29 mil/uL (4.20-5.00); RDW 16.3 % (10.5-14.5); WBC 3.3 thou/uL (4.0-11.0)
[2018-09-09 05:59] LABS: CREATININE 0.5 mg/dL (0.6-1.0)
[2018-09-09 14:26] VITALS: BP 127/62
[2018-09-09 19:09] VITALS: BP 136/59
[2018-09-10 02:42] VITALS: BP 144/82
[2018-09-10 07:24] VITALS: BP 136/60
[2018-09-10 17:49] VITALS: BP 120/40
[2018-09-10 19:34] VITALS: BP 114/59
[2018-09-11 04:24] VITALS: BP 147/61
[2018-09-11 06:16] LABS: HEMATOCRIT 35.9 % (37.0-47.0); HEMOGLOBIN 12.4 gm/dL (12.0-15.0); MCHC 34.5 g/dL (28.0-37.0); MCV 92.5 fL (80.0-100.0); RBC 3.88 mil/uL (4.20-5.00); RDW 16.2 % (10.5-14.5); WBC 6.8 thou/uL (4.0-11.0)
[2018-09-11 06:36] LABS: CALCIUM 9.3 mg/dL (8.5-10.1); CREATININE 0.5 mg/dL (0.6-1.0); POTASSIUM 3.4 mmol/L (3.5-5.1)
[2018-09-11 09:06] VITALS: BP 136/78
[2018-09-11 19:41] VITALS: BP 131/67
[2018-09-12] VITALS (7 sets, daily range): BP systolic 99–155; BP diastolic 63–88
[2018-09-12 03:32] LABS: BE(vivo) 6.5 mmol/L (-2 to +3); PCO2 77.4 mmHg (35.0-45.0); PO2 68.1 mmHg (80.0-100.0); pH 7.286 (7.360-7.450); sO2 90.6 % (92.0-98.0)
[2018-09-12 04:56] LABS: BE(vivo) 6.3 mmol/L (-2 to +3); HCO3 35.6 mmol/L (22.0-26.0); PCO2 75.8 mmHg (35.0-45.0); PO2 71.7 mmHg (80.0-100.0); sO2 91.9 % (92.0-98.0)
[2018-09-12 06:43] LABS: BE(vivo) 4.3 mmol/L (-2 to +3); HCO3 32.6 mmol/L (22.0-26.0); PCO2 66.1 mmHg (35.0-45.0); PO2 96.5 mmHg (80.0-100.0); pH 7.311 (7.360-7.450); sO2 96.6 % (92.0-98.0)
[2018-09-13] VITALS (20 sets, daily range): BP systolic 131–181; BP diastolic 64–132
[2018-09-13 04:42] LABS: HEMOGLOBIN 12.2 gm/dL (12.0-15.0); MCH 30.9 pg (26.0-34.0); MCV 93.6 fL (80.0-100.0); RBC 3.96 mil/uL (4.20-5.00); RDW 16.2 % (10.5-14.5); WBC 5.4 thou/uL (4.0-11.0)
[2018-09-13 05:25] LABS: CALCIUM 9.6 mg/dL (8.5-10.1); CREATININE 0.5 mg/dL (0.6-1.0); POTASSIUM 3.4 mmol/L (3.5-5.1)
[2018-09-13 14:14] LABS: ADENOVIRUS Negative (Negative); INFLUENZA A Negative (Negative); INFLUENZA B Negative (Negative); METAPNEUMOVIRUS Negative (Negative); PARAINFLUENZA 1 Negative (Negative); PARAINFLUENZA 2 Negative (Negative); PARAINFLUENZA 3 Negative (Negative); RHINOVIRUS Negative (Negative); RSV A Negative (Negative); RSV B Negative (Negative)
[2018-09-14 03:54] VITALS: BP 165/96
[2018-09-14 05:55] LABS: HEMATOCRIT 38.1 % (37.0-47.0); HEMOGLOBIN 12.6 gm/dL (12.0-15.0); MCH 30.8 pg (26.0-34.0); MCHC 33.1 g/dL (28.0-37.0); MCV 92.9 fL (80.0-100.0); RBC 4.1 mil/uL (4.20-5.00); RDW 15.5 % (10.5-14.5); WBC 6.6 thou/uL (4.0-11.0)
[2018-09-14 06:53] LABS: CALCIUM 8.8 mg/dL (8.5-10.1); CREATININE 0.5 mg/dL (0.6-1.0); MAGNESIUM 2.1 mg/dL (1.8-2.4); POTASSIUM 3.4 mmol/L (3.5-5.1)
[2018-09-14 07:59] VITALS: BP 165/105
[2018-09-14 11:54] VITALS: BP 164/66
[2018-09-14 17:27] VITALS: BP 136/68
[2018-09-14 19:40] VITALS: BP 137/68
[2018-09-15 04:29] VITALS: BP 160/83
[2018-09-15 06:09] LABS: HEMATOCRIT 36.7 % (37.0-47.0); HEMOGLOBIN 12.9 gm/dL (12.0-15.0); MCH 32.1 pg (26.0-34.0); MCHC 35.1 g/dL (28.0-37.0); MCV 91.6 fL (80.0-100.0); RBC 4.01 mil/uL (4.20-5.00); RDW 15.9 % (10.5-14.5); WBC 9.1 thou/uL (4.0-11.0)
[2018-09-15 06:34] LABS: CALCIUM 8.7 mg/dL (8.5-10.1); CREATININE 0.4 mg/dL (0.6-1.0); MAGNESIUM 2.1 mg/dL (1.8-2.4); POTASSIUM 3.9 mmol/L (3.5-5.1)
[2018-09-15 08:00] VITALS: BP 169/76
[2018-09-15 11:58] VITALS: BP 141/89
[2018-09-15 15:57] VITALS: BP 150/87
[2018-09-15 19:25] VITALS: BP 109/68
[2018-09-16 00:02] VITALS: BP 122/67
[2018-09-16 04:05] VITALS: BP 120/66
[2018-09-16 05:58] LABS: HEMOGLOBIN 12.5 gm/dL (12.0-15.0); MCH 31.6 pg (26.0-34.0); MCHC 33.8 g/dL (28.0-37.0); MCV 93.6 fL (80.0-100.0); RBC 3.95 mil/uL (4.20-5.00); RDW 16.3 % (10.5-14.5); WBC 9.1 thou/uL (4.0-11.0)
[2018-09-16 06:09] LABS: CALCIUM 8.6 mg/dL (8.5-10.1); CREATININE 0.4 mg/dL (0.6-1.0); MAGNESIUM 2.1 mg/dL (1.8-2.4); POTASSIUM 4.1 mmol/L (3.5-5.1)
[2018-09-16 07:33] VITALS: BP 137/79
[2018-09-16 11:29] VITALS: BP 128/67
[2018-09-16 16:35] VITALS: BP 114/57
[2018-09-16 19:22] VITALS: BP 104/70
[2018-09-17 04:00] VITALS: BP 128/66
[2018-09-17 05:22] LABS: HEMOGLOBIN 11.7 gm/dL (12.0-15.0); MCH 30.9 pg (26.0-34.0); MCHC 33.4 g/dL (28.0-37.0); MCV 92.5 fL (80.0-100.0); RBC 3.79 mil/uL (4.20-5.00); RDW 15.7 % (10.5-14.5); WBC 8.8 thou/uL (4.0-11.0)
[2018-09-17 05:33] LABS: CALCIUM 8.8 mg/dL (8.5-10.1); CREATININE 0.3 mg/dL (0.6-1.0); POTASSIUM 3.8 mmol/L (3.5-5.1)
[2018-09-17 07:01] VITALS: BP 140/58
[2018-09-17 12:44] VITALS: BP 138/78
[2018-09-17] MEDS ORDERED: PREDNISONE 10 M10 MG PO (12:47)
[2018-09-17 15:49] VITALS: BP 113/54
== END 2018-09-17 17:47 | DRG 871 ==
LOC: ER 14:52 → EROBS 17:57 → 4W 17:57 → 3W 09-12 03:12 → ICU 09-12 12:06 → 3W 09-13 14:26
PROVIDERS: Hospitalist; Internal Medicine; Nurse Practitioner Family; Physician Assistant
PROC: 0W9930Z Drainage of Right Pleural Cavity with Drainage Device, Percutaneous Approach (ICD-10-PCS; principal; 2018-09-12)
PROC: 5A09357 Assistance with Respiratory Ventilation, Less than 24 Consecutive Hours, Continuous Positive Airway Pressure (ICD-10-PCS; principal; 2018-09-12)
DX: A41.9 Sepsis, unspecified organism (principal); J96.21 Acute and chronic respiratory failure with hypoxia; J96.22 Acute and chronic respiratory failure with hypercapnia; J44.1 Chronic obstructive pulmonary disease with (acute) exacerbation; J93.83 Other pneumothorax; J20.9 Acute bronchitis, unspecified; I10 Essential (primary) hypertension; J45.909 Unspecified asthma, uncomplicated; F41.9 Anxiety disorder, unspecified; E78.5 Hyperlipidemia, unspecified; Z60.2 Problems related to living alone; I48.0 Paroxysmal atrial fibrillation; I71.4 Abdominal aortic aneurysm, without rupture; L13.9 Bullous disorder, unspecified; M19.011 Primary osteoarthritis, right shoulder; Z88.8 Allergy status to other drugs, medicaments and biological substances; Z87.891 Personal history of nicotine dependence; Z82.5 Family history of asthma and other chronic lower respiratory diseases; Z79.82 Long term (current) use of aspirin; Z79.899 Other long term (current) drug therapy; I71.6 Thoracoabdominal aortic aneurysm, without rupture
CPT/HCPCS: 10045; 10078; 10203; 10879

== ENCOUNTER → 2018-09-08 | Outpatient (CLI) | payer OTHER, MEDICARE ==
[~2018-09-08] MED LIST changes: +ALBUTEROL2.5 MG/31 INH; +XANAX1 MG PO
[2018-09-08 14:39] LABS: ABSOLUTE NEUTROPHILS 7.1 thou/uL (1.4-8.2); BASOPHILS 0.9 % (0.0-2.0); EOSINOPHILS 6.7 % (0.0-3.0); HEMATOCRIT 41.5 % (37.0-47.0); HEMOGLOBIN 13.9 gm/dL (12.0-15.0); LYMPHOCYTES 12.6 % (24.0-44.0); MCH 31.3 pg (26.0-34.0); MCHC 33.5 g/dL (28.0-37.0); MCV 93.2 fL (80.0-100.0); MONOCYTES 9.2 % (1.0-8.0); PLATELET COUNT 301 thou/uL (150-400); POLYS 70.6 % (36.0-66.0); RBC 4.46 mil/uL (4.20-5.00); RDW 16.2 % (10.5-14.5); WBC 10.1 thou/uL (4.0-11.0)
== END ==
LOC: RAD 13:43
PROVIDERS: Pediatrics
DX: J44.9 Chronic obstructive pulmonary disease, unspecified (principal); R05 Cough; R06.00 Dyspnea, unspecified; I10 Essential (primary) hypertension; F17.200 Nicotine dependence, unspecified, uncomplicated; Z87.01 Personal history of pneumonia (recurrent); Z98.41 Cataract extraction status, right eye; Z79.899 Other long term (current) drug therapy

== ENCOUNTER 2018-09-15 12:16 | Inpatient (IN) | payer OTHER, MEDICARE ==
[~2018-09-15] VITALS: Ht 162.6 cm; Wt 59.0 kg
--- NOTE | ~2018-09-15 | H ---
[facility] [place] [address] HISTORY AND PHYSICAL Name: SAVANAH TIDWELL Room #: 501-A ADM IN .R.#: [id number] Admission: 09/17/18 Attend Phys: Derick Mohr MD Discharge: Date of : 43 Report #: [id number] THIS REPORT FOR: //name// CC: Kurt Mohr DATE OF SERVICE: 09/17/2018 NOTE: I am covering for Dr. Derick Mohr and therefore completing this history and physical for him. The patient was seen on 09/17/2018, but did not wind up going into the rehab unit until later that evening. REFERRING DOCTOR: Dr. Mario Silva. CHIEF COMPLAINT: Mobility and self-care deficits due to cardiopulmonary debilitation and COPD exacerbation. HISTORY OF PRESENT ILLNESS: The patient is a pleasant 72-year-old right-hand dominant female who was admitted to [facility] on 09/08/2018 with an exacerbation of chronic obstructive pulmonary disease. She has had multiple admissions for shortness of breath and coughing and recently went to a snf facility. She had 3-4 days of worsening cough, wheezing and shortness of breath. Initially, her saturations were in the low 80s and she had been receiving 4 liters of oxygen by nasal cannula, which is her normal amount. She was admitted with an exacerbation of COPD and acute on chronic hypoxic respiratory failure. Additional issues include hypertension, anxiety, and atrial fibrillation with rapid ventricular response. She worked with Physical Therapy and was found to be very weak and unable to care for herself. She lives independently in her own home. There was concern that she will need additional rehabilitation and therefore she is now being admitted to the acute inpatient rehabilitation unit at [facility] for comprehensive therapies. PAST MEDICAL HISTORY: As above, also community-acquired pneumonia, congestive heart failure, COPD with acute exacerbations, dyspnea, pneumonia. ALLERGIES: CEPHALEXIN, LABETALOL. MEDICATIONS: Reviewed. I note that she has a nicotine patch. Please see the written documentation of this history and physical for full details of her medications and dosages. These have been reviewed. SOCIAL HISTORY: She lives independently in her own home. It is a ranch home. She states that she will not be able to go back to that house. 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. She is a [facility] [address] [place] [address] HISTORY AND PHYSICAL Name: SAVANAH TIDWELL Room #: 501-A [facility] IN ..#: [id number] Admission: 09/17/18 Attend Phys: Derick Mohr MD Discharge: Date of : 44 Report #: [id number] former smoker. FAMILY HISTORY: Positive for asthma, COPD and lung disease. REVIEW OF SYSTEMS: As above. Specifically, she reports shortness of breath, weakness, difficulty caring for herself, propensity to fall, shakiness when she is standing and inability to do her activities of daily living in an efficient manner. At this point, she is having a whole lot of trouble doing that. Otherwise, the remainder of a 10-point review is negative except what is stated above. PHYSICAL EXAMINATION: GENERAL: No acute distress, well developed, well nourished. She is up in the chair. She has oxygen by nasal cannula. CARDIOVASCULAR: Pulses are 2+, regular. LUNGS: She is aerating fairly well. She does get short of breath with activity. ABDOMEN: Soft, nontender, nondistended, positive bowel sounds. EXTREMITIES: Calves are nontender. She has 1+ edema. Homans sign is negative. LYMPHATICS: No cervical adenopathy. MUSCULOSKELETAL: Functionally, she showed a great deal of difficulty getting in and out of a chair for my examination; I had to help her to stand up. I would estimate it required minimal assist to moderate assist to get her up from the chair and getting back into the chair was difficult for her. She certainly wears out quickly. When she stands and tries to ambulate, she gets short of breath. She has a kyphotic posture. Tone is within normal limits. There is no muscle atrophy. NEUROLOGIC/PSYCHIATRIC: Coordination is fair. Muscle stretch reflex is 1/4 and symmetric. Sensation intact. Alert, able to answer my questions, pleasant, cooperative with the exam. No wet or gurgling quality to her voice. No dysarthria or aphasia. Mood is good. IMPRESSION: Mobility and self-care deficits in a 72-year-old right-hand dominant female secondary to: 1. Cardiopulmonary debilitation with impaired endurance. 2. Chronic obstructive pulmonary disease exacerbation, improving, leading to further weakness. 3. Acute on chronic hypoxic respiratory failure, improving, limiting her endurance. 4. Hypertension, treated with verapamil, hydrochlorothiazide and losartan. 5. Anxiety disorder, treated with Xanax. 6. Deep venous thrombosis prophylaxis with subcutaneous Lovenox. 7. History of atrial fibrillation with rapid ventricular response. 8. Medical complexity with general debility. 9. History of tobacco abuse. 10. Spontaneous pneumothorax status post chest tube, with chest tube now [facility] [address] [place] [address] HISTORY AND PHYSICAL Name: SAVANAH TIDWELL Room #: 501-A ADM IN [facility]#: [id number] Admission: 09/17/18 Attend Phys: Derick Mohr MD Discharge: Date of : 44 Report #: [id number] removed. PLAN: 1. Admit to the rehabilitation unit for comprehensive therapies. 2. Please see the plan of care post-admission physician evaluation and admission orders for full details of her rehabilitation care plan. 3. Discussed the rehabilitation program with her therapy team. 4. The patient is ready to be admitted to this rehabilitation program for comprehensive therapies. POST-ADMISSION PHYSICIAN EVALUATION: A post-admission physician evaluation has been completed. The patient's preadmission screening was reviewed in its entirety by me. The current clinical status is supported by the information contained within it. The patient is appropriate to undergo a comprehensive inpatient rehabilitation program and it is considered reasonable and necessary due to the functional decline that is described above. She will need physical therapy and occupational therapy 3 hours a day at least 5 days per week in an effort to build her endurance and to help become more sufficient with her activities of daily living. Furthermore, nothing has changed since the preadmission screen was completed to suggest that the patient would not be able to tolerate or benefit from this rehabilitation program. It is my opinion that inpatient rehabilitation rather than snf is a more appropriate setting for her due to the multiple medical requirements that she has, needing comprehensive Physical Medicine and Rehabilitation oversight. Physical Medicine and Rehabilitation Medicine is in the unique position to supervise her rehabilitation program as training is provided to manage cardiopulmonary conditions that affect aerobic capacity. She is at risk for many complications during rehabilitation due to her unstable respiratory condition, propensity to go into atrial fibrillation with rapid ventricular response and air hunger. My plan to manage these conditions, which could impact her participation in the rehabilitation program, is to consult Internal Medicine to follow along closely during her rehabilitation course and to modify her therapies to adjust to her current condition. INDIVIDUALIZED OVERALL PLAN OF CARE: Summarization of findings: The patient is receiving inpatient rehabilitation due to the following medical impairments: 1. Acute exacerbation of chronic obstructive pulmonary disease. 2. Spontaneous pneumothorax requiring chest tube, now removed. 3. Anxiety disorder. 4. Atrial fibrillation with rapid ventricular response. 5. Hypoxic respiratory failure requiring intervention. 6. Hypertension. 7. History of tobacco abuse with recent quitting of smoking. [facility] [address] [place] [address] HISTORY AND PHYSICAL Name: DIANNSAVANAH M Room #: 501-A [facility] IN ..#: [id number] Admission: 09/17/18 Attend Phys: Derick Mohr MD Discharge: Date of : 44 Report #: [id number] IDENTIFIED INTERVENTIONS: Include physical therapy, occupational therapy and rehabilitation nursing to address her mobility, self-care deficits, communication deficits as well as her poor endurance. Physical Medicine and Rehabilitation will provide management of her rehabilitation care plan. Internal Medicine will follow her for multiple medical issues. Rehabilitation nursing care is needed 24 hours a day for care needs and manager social media as needed for discharge planning as well as medical equipment needs. ESTIMATED LENGTH OF STAY: Approximately 10-14 days. ANTICIPATED FUNCTIONAL OUTCOME: Modified independent with mobility and self-care skills. ANTICIPATED DISCHARGE DESTINATION: Home with home health services. She is looking into moving to a nursing home community, which I agree with. She will likely need to be at home, however, until that can get into place. MEDICAL PROGNOSIS: Fair to good. She will continue to receive Internal Medicine followup to monitor her chronic medical issues and acute medical issues, which have shown some improvement. She is now ready to start the rehabilitation program. ANTICIPATED THERAPIES: Include physical and occupational therapy 3 hours a day 5 days a week for an anticipated duration of 10-14 days. SUMMARIZATION OF TREATMENT PLAN: The patient will continue to receive an inpatient rehabilitation program as outlined above in an effort to improve her overall function and return home at a modified independent level within 10-14 days. <ELECTRONICALLY SIGNED> By: Derick Mohr MD 09/21/18 1136 1204 1233 Obie Robles DO /nt
[~2018-09-15 12:16] MED LIST changes: +ALBUTEROL2.5 MG/31 INH; +XANAX1 MG PO
[2018-09-17] MEDS ORDERED: PREDNISONE 10 M10 MG PO (12:47)
[2018-09-17 18:00] VITALS: BP 126/58
[2018-09-17 19:36] VITALS: BP 129/65
[2018-09-18 05:48] LABS: HEMATOCRIT 34.1 % (37.0-47.0); HEMOGLOBIN 11.6 gm/dL (12.0-15.0); MCH 31.5 pg (26.0-34.0); MCHC 33.9 g/dL (28.0-37.0); MCV 92.8 fL (80.0-100.0); RBC 3.68 mil/uL (4.20-5.00); RDW 15.7 % (10.5-14.5); WBC 7.5 thou/uL (4.0-11.0)
[2018-09-18 05:58] LABS: CREATININE 0.4 mg/dL (0.6-1.0)
[2018-09-18 06:47] VITALS: BP 140/69
[2018-09-18 19:56] VITALS: BP 123/54
[2018-09-19 08:57] VITALS: BP 145/63
[2018-09-19 19:26] VITALS: BP 126/60
[2018-09-20 09:09] VITALS: BP 130/52
[2018-09-20 19:48] VITALS: BP 148/80
[2018-09-21 07:15] VITALS: BP 148/74
[2018-09-21 10:32] VITALS: BP 148/80
[2018-09-21 20:42] VITALS: BP 133/60
[2018-09-22 07:25] VITALS: BP 144/70
[2018-09-22 20:05] VITALS: BP 126/72
[2018-09-23 07:15] VITALS: BP 159/76
[2018-09-23 20:12] VITALS: BP 119/55
[2018-09-24 07:10] VITALS: BP 116/56
[2018-09-24 19:21] VITALS: BP 137/62
[2018-09-25 07:30] VITALS: BP 148/68
[2018-09-25] MEDS ORDERED: TRAMADOL 50 MG50 MG PO (07:38)
[2018-09-25] MEDS ORDERED: COZAAR 50 MG TA50 M1 PO (07:40)
[2018-09-25] MEDS ORDERED: ASPIR 8181 MG PO (07:40)
[2018-09-25] MEDS ORDERED: COLACE100 MG PO (07:40)
[2018-09-25] MEDS ORDERED: PEPCID20 MG PO (07:40)
[2018-09-25] MEDS ORDERED: TYLENOL325 MG PO (07:40)
[2018-09-25] MEDS ORDERED: PREDNISONE 10 M10 MG PO (07:40)
[2018-09-25 10:31] VITALS: BP 148/80
== END 2018-09-25 11:42 | disposition home health service (06) | DRG 947 ==
PROVIDERS: Nurse Practitioner Family
DX: R53.81 Other malaise (principal); J96.21 Acute and chronic respiratory failure with hypoxia; J96.22 Acute and chronic respiratory failure with hypercapnia; J93.83 Other pneumothorax; J44.1 Chronic obstructive pulmonary disease with (acute) exacerbation; F41.9 Anxiety disorder, unspecified; I50.9 Heart failure, unspecified; I11.0 Hypertensive heart disease with heart failure; I48.91 Unspecified atrial fibrillation; Z87.891 Personal history of nicotine dependence; Z88.1 Allergy status to other antibiotic agents; Z88.8 Allergy status to other drugs, medicaments and biological substances; Z99.81 Dependence on supplemental oxygen; Z82.5 Family history of asthma and other chronic lower respiratory diseases; Z83.3 Family history of diabetes mellitus; Z80.42 Family history of malignant neoplasm of prostate; Z87.01 Personal history of pneumonia (recurrent)
CPT/HCPCS: 10112

== ENCOUNTER → 2018-11-28 | Outpatient (CLI) | payer OTHER, MEDICARE ==
[~2018-11-28] MED LIST changes: +ASPIR 8181 MG PO; +COLACE100 MG PO; +PEPCID20 MG PO; +TRAMADOL 50 MG50 MG PO; +TYLENOL325 MG PO
== END ==
LOC: CAT 13:10
DX: R91.1 Solitary pulmonary nodule (principal); I25.10 Atherosclerotic heart disease of native coronary artery without angina pectoris; I70.0 Atherosclerosis of aorta; Z88.8 Allergy status to other drugs, medicaments and biological substances

== ENCOUNTER 2018-12-04 14:36 | Inpatient (IN) | payer OTHER, MEDICARE ==
[~2018-12-04] VITALS: Ht 160 cm; Wt 55.7 kg
--- NOTE | ~2018-12-04 | HC ---
[facility] [place] [address] CONSULTATION Name: SAVANAH TIDWELL Room #: 201-P [facility] IN M.R.#: [id number] Admission: 12/04/18 ������������������ Attend Phys: Olayinka Trevino MD Discharge: ������������������ Date of : 44 Report #: [id number] THIS REPORT FOR: //name// CC: Olayinka Burks DATE OF SERVICE: 12/06/2018 REASON FOR CONSULTATION: Thoracic aortic aneurysm. 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 In 2016, her aortic aneurysm measured 4.7 cm. With a recent CT scan of her lungs for recurrent exacerbation of lung disease, this aneurysm measured 5.0 cm. She is now admitted with increasing shortness of breath and nonproductive cough. Over the past 365 days, she has had 5 hospitalizations for exacerbations in her lung disease and/or pneumonia. One of these hospitalizations was associated with a spontaneous pneumothorax requiring chest tube placement. Her echocardiogram has demonstrated normal systolic function. She denies heart failure symptoms including orthopnea, paroxysmal nocturnal dyspnea, or lower extremity edema. No abdominal, back or flank pain. No history of near syncope or syncope. She does have a history of paroxysmal atrial tachycardia, which has been nicely suppressed with verapamil. Blood pressure readings have been well controlled. ALLERGIES: ALLERGIC TO LABETALOL AND CEPHALEXIN. MEDICATIONS: Include hydrochlorothiazide 12.5 mg daily, potassium 10 mEq daily, losartan 50 mg daily, verapamil SR 240 mg daily. 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 She has a history of asymptomatic subclavian stenosis. 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 Breast biopsies, cataract excision. SOCIAL HISTORY: Heavy former smoker, last year. FAMILY HISTORY: Unremarkable for premature coronary artery disease. REVIEW OF SYSTEMS: All systems negative except as that noted above. PHYSICAL EXAMINATION: GENERAL: A pleasant woman in no distress. VITAL SIGNS: Blood pressure is 149/70, heart rate of 80 and regular. She is [facility] [address] [place] [address] CONSULTATION Name: SAVANAH TIDWELL Room #: 201-P [facility] IN .R.#: [id number] Admission: 12/04/18 ������������������ Attend Phys: Olayinka Trevino MD Discharge: ������������������ Date of : 44 Report #: [id number] afebrile, 5 feet 3 inches tall, 123 pounds. HEENT: There are neither xanthelasma, subcutaneous xanthomata, oral mucosal or digital cyanosis or kyphoscoliosis present. CHEST: Reveals equal breath sounds with bilateral rhonchi and wheezing. CARDIOVASCULAR: Regular rate and rhythm with normal S1, S2. ABDOMEN: Soft and nontender. EXTREMITIES: Without cyanosis, clubbing or edema. Radial pulses are 2+. NEUROLOGIC: She is alert with a nonfocal exam. LABORATORY DATA: Sodium 136, potassium 4.3, creatinine 0.5. ProBNP of 544. White count 2.2 thousand, hemoglobin 12, hematocrit 35, platelet count 308. RADIOLOGICAL DATA: Chest x-ray demonstrates cardiomegaly, normal vascularity. IMPRESSION: 1. Ldgtv-qq-pvkvvig respiratory failure; bronchitis versus lower respiratory tract infection. 2. Severe chronic obstructive pulmonary disease, oxygen dependent, FEV1 0.3. 3. 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 4. Hypertension. RECOMMENDATIONS: 1. Continued medical therapy and aggressive risk factor modification. 2. With an FEV1 of 0.3, oxygen dependency, she may never be a candidate for open repair of this aneurysm. With 5 hospitalizations in the past year for exacerbations in her lung disease, this alone carries with it a very poor prognosis and morbidity and mortality that is likely higher than her aneurysmal disease. 3. Threshold for repair would be in the 5.5 cm range. Continued periodic monitoring of the aorta is warranted. I have discussed these issues with the patient in detail. Thank you for asking me to participate in her care. ��������������������������������������������� ���������������������������������������� By: ��������������������������������������������� 0819 19 Todd Lozano MD, FACC /nt
[2018-12-04 14:58] VITALS: BP 172/86
[2018-12-04] MEDS ORDERED: KLOR-CON 1010 MEQ PO (15:17)
[2018-12-04] MEDS ORDERED: BUDESONIDE0.25 MG/2 (15:17)
[2018-12-04 15:25] LABS: HEMATOCRIT 40.3 % (37.0-47.0); HEMOGLOBIN 13.7 gm/dL (12.0-15.0); MCH 32.3 pg (26.0-34.0); MCHC 34.1 g/dL (28.0-37.0); MCV 94.6 fL (80.0-100.0); PLATELET COUNT 388 thou/uL (150-400); RBC 4.25 mil/uL (4.20-5.00); RDW 15.9 % (10.5-14.5); WBC 7.7 thou/uL (4.0-11.0)
[2018-12-04 15:33] LABS: CALCIUM 10.5 mg/dL (8.5-10.1); CREATININE 0.6 mg/dL (0.6-1.0); POTASSIUM 3.7 mmol/L (3.5-5.1)
[2018-12-04 15:49] LABS: ABSOLUTE NEUTROPHILS 6.1 thou/uL (1.4-8.2)
[2018-12-04 18:35] VITALS: BP 129/69
[2018-12-04 18:45] VITALS: BP 135/66
[2018-12-04 19:05] VITALS: BP 130/92
[2018-12-04] MEDS ORDERED: VIT C-ROSE HIP500 MG PO (23:26)
[2018-12-04] MEDS ORDERED: CALCIUM500 MG PO (23:27)
[2018-12-04] MEDS ORDERED: DUCODYL5 MG PO (23:29)
[2018-12-05 00:01] VITALS: BP 128/63
--- NOTE | 2018-12-05 01:30 | NUR ---
PT ARRIVED ON UNIT FROM ED AT 191 VERY SHORT OF BREATH, 32 BREATHS PER MINUTE ON 4 LITERS. PATIENT REQUESTING ANXIETY MED FOR BEDTIME. PT JUST MOVED FROM LONG TIME HOME TO [facility]. WITHIN THE LAST YEAR. PT STATED SHE HAS BEEN IN THE HOSPITAL 5 TIMES SINCE HIS . PLAN OF CARE IS TO CONTINUE BREATHING TREATMENTS, STEROID AND OXYGEN THERAPY. PATIENT REQUESTED SALINE NASAL SPRAY.
[2018-12-05 04:26] LABS: HEMATOCRIT 35.3 % (37.0-47.0); MCH 32.4 pg (26.0-34.0); MCV 95.2 fL (80.0-100.0); RBC 3.71 mil/uL (4.20-5.00); RDW 15.8 % (10.5-14.5); WBC 2.2 thou/uL (4.0-11.0)
[2018-12-05 04:40] LABS: CALCIUM 9.6 mg/dL (8.5-10.1); CREATININE 0.5 mg/dL (0.6-1.0); POTASSIUM 4.3 mmol/L (3.5-5.1)
[2018-12-05 05:45] VITALS: BP 133/61
[2018-12-05 07:10] VITALS: BP 154/72
--- NOTE | 2018-12-05 07:47 | EKG ---
[address] [address] ELECTROCARDIOGRAM REPORT Name: SAVANAH TIDWELL Room #: 201-P 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 : 1945 Requested By: Henrik De Luna Order Number: [id number] MD: Todd Lozano Measurements Intervals [place] Rate: 99 P: 77 CT: 198 QRS: 77 QRSD: 103 T: -8 QT: 292 QTc: 375 Interpretive Statements Sinus tachycardia Atrial premature complexes Compared to ECG 09/13/2018 16:53:19 No significant change was found Electronically Signed On 12-05-2018 7:47:33 SLITTER OPERATOR by Todd Lozano [email or web address] ��������������������������������������������� <ELECTRONICALLY SIGNED> ���������������������������������������� By: Todd Lozano MD, [facility] ��������������������������������������������� 12/05/18 0747 1526 1526 Todd Lozano MD, [facility] /EPI
[2018-12-05 11:15] VITALS: BP 144/60
--- NOTE | 2018-12-05 13:08 | NUR ---
met with patient whose recently . She has moved to [facility]. She has lived there approx one month. She admits with COPD exacerbation. She has home oxygen via [facility]. She uses a rolator walker to dining area but nothing in her room. She has 2 supportive children in area. She is agreeable to HH if needed at co and agreeable to [facility] she has used in the past.
[2018-12-05 15:35] VITALS: BP 117/58
--- NOTE | 2018-12-05 18:57 | NUR ---
ASSUMED PATIENT CARE THIS AM. PATIENT A&O, NC 4L. UP X1 ASSIST WITH WALKER. VOIDS PER BEDSIDE COMMODE. PATIENT SOB WITH EXCERTION. FALL RISK. PATIENT ABLE TO USE CALL LIGHT APPROPRIATLY. TOLERATING DIET.
[2018-12-05 19:46] VITALS: BP 118/47
[2018-12-06 04:38] VITALS: BP 158/87
--- NOTE | 2018-12-06 05:53 | NUR ---
ASSUME CAR E1900. PT/VITALS STABLE. INTERMITTENT RIGHT SIDE PAIN RATES AT 3/10. UP WITH 1 ASSIST TO BSC. ASSESSMENT CHARTED. PROGRESSING WELL WITH POC. ADEQUATE REST NOTED. PLAN IS TO CONTINUE BREATHING TX AND ANTIBIOTICS. WILL CONTINUE TO MONITOR AND FOLLOW WITH POC
[2018-12-06 07:01] VITALS: BP 149/71
[2018-12-06 11:07] VITALS: BP 140/68
--- NOTE | 2018-12-06 14:51 | NUR ---
Verified address at [facility] and faxed to [facility] in case plan home with HH at ok.
[2018-12-06 15:35] VITALS: BP 123/60
--- NOTE | 2018-12-06 18:29 | NUR ---
ASSUMED PATIENT CARE THIS AM. PATIENT A&OX4. NC @ 3-4L. SOME SOB WITH EXCERTION NOTED, PATIENT STATES ITS BETTER THAN YESTERDAY. NO COMPLAINTS OF PAIN FOR THIS RN. TOLERATING DIET. PATIENT USES CALL LIGHT APPROPRIATLY. VOIDS PER BEDSIDE COMMODE.
[2018-12-06 19:47] VITALS: BP 135/63
--- NOTE | 2018-12-07 03:31 | NUR ---
RECEIVED PATIENT SITTING ON CHAIR WITH ONGOING BREATHING TREATMENT. AOX4, SR ON THE MONITOR. PULSES 2+/2+. COARSE WHEEZY LUNG SOUNDS, ON 4L/NC. COMPLAINT OF ACHING PAIN ON THE RIGHT SIDE JUST BELOW THE BREAST WHEN COUGHING, MANAGED WITH PRN PAIN MEDICATION. PATIENT HAD EPISODE OF SOA ON SHORT DISTANCE FROM GETTING OUT OF CHAIR TO BEDSIDE COMMODE, PRN XANAX GIVEN. RIGHT AC SALINE LOCKED, INTACT AND FLUSHES WELL. ASSIST X 1 ON GOING BACK TO BED. MAINTAINED ON FALL PRECAUTION.
[2018-12-07 05:04] VITALS: BP 174/82
[2018-12-07 07:05] VITALS: BP 155/85
[2018-12-07 13:59] VITALS: BP 155/85
[2018-12-07 18:00] VITALS: BP 103/56
--- NOTE | 2018-12-07 18:52 | NUR ---
ASSUMED CARE OF PATIENT AT 0700. ASSESSMENTS CHARTED. PATIENT SAT IN THE RECLINER FOR THE MAJORITY OF THE DAY. PATIENT WORKED WITH PT AND TOOK A WALK AROUND THE CLINIC. PATIENT DENIED ANY PAIN. SHE WAS COMPLIANT WITH HER MEDS AND RT TREATMENTS. PATIENT IS HOPING TO LEAVE TOMORROW AND DID NOT FEEL THOUGH SHE WAS READY TO LEAVE TODAY. PATIENT TO CONTINUE WITH POC.
[2018-12-07 19:25] VITALS: BP 143/52
--- NOTE | 2018-12-08 03:37 | NUR ---
ASSESSMENT DOCUMENTED.PT RESTING IN NO ACUTE DISTRESS.ON O2 AT 2LITERS PER NC,SATS ADEQUATE.VSS.ON MONITOR SR WITH 1DEG.A/OX4.PT DENIES ANY CONCERNS AT THIS TIME.POSSIBLE DISCHARGE TODAY.WILL CONT TO MONITOR PER POC.
[2018-12-08 05:51] VITALS: BP 155/72
[2018-12-08 08:19] VITALS: BP 158/70
[2018-12-08] MEDS ORDERED: DOXYCYCLINE HYC50 MG PO (08:19)
[2018-12-08] MEDS ORDERED: PREDNISONE 10 M10 MG PO (08:20)
--- NOTE | 2018-12-08 09:55 | NUR ---
PT. DISCHARGING TODAY TO HOME WITH [facility] SPOKE WITH JOAN IN ADM. AND SHE RECEIVED DC ORDERS AND WILL NOTIFY PT. OF TIME OF VISITS.
[2018-12-08 11:41] VITALS: BP 136/63
--- NOTE | 2018-12-08 16:07 | NUR ---
PT. IS NO LONGER DISCHARGING TO HOME WITH [facility] NOTIFIED JOAN THAT PT. WILL GO TO SKILLED FACILITY. FAXED REFERRAL TO [facility] SPOKE WITH SOLITARIO IN ADM,SHE RECEIVED REFERRAL AND CAN ACCEPT PT. AT DISCHARGE, SHE ARRANGED TRANSPORT VIA [facility] AT 1300 TOMORROW 12/09. PLEASE FAX DC ORDERS TO [phone] AND CALL [phone] TO GIVE REPORT.
[2018-12-08 16:25] VITALS: BP 135/49
--- NOTE | 2018-12-08 18:33 | EKG ---
[address] [address] ELECTROCARDIOGRAM REPORT Name: TIDWELLSAVANAH Loki Room #: 201-P ADM IN M.R.#: [id number] ������������������ Admission: 12/04/18 ������������������ Attend Phys: Olayinka Trevino MD Discharge: ������������������ Date of : 43 Report #: [id number] ����������������������������������������������������������������� [id number] THIS REPORT FOR: //name// [facility] Test Date: 2018-12-08 Test Time: 11:29:26 Pat Name: SAVANAH TIDWELL Department: Room: 201 P Gender: F Pastry Chef: BS : 1945 Requested By: Emily Alvarado Order Number: [id number] MD: Destin Mccallum Measurements Intervals [place] Rate: 94 P: 65 ID: [id number] QRS: 71 QRSD: 109 T: -10 QT: 363 QTc: 454 Interpretive Statements Sinus rhythm Atrial premature complex left atrial enlargement Nonspecific ST-T wave changes Compared to ECG 12/04/2018 15:26:11 No significant changes present Electronically Signed On 12-08-2018 18:32:54 ELECTRIC MOTOR REPAIR SUPERVISOR by Destin Mccallum [email or web address] ��������������������������������������������� <ELECTRONICALLY SIGNED> ���������������������������������������� By: Destin Mccallum MD ��������������������������������������������� 12/08/18 1832 1129 1129 Destin Mccallum MD /EPI
[2018-12-08 20:23] VITALS: BP 142/61
[2018-12-09 05:17] VITALS: BP 151/61
[2018-12-09 07:10] VITALS: BP 150/56
--- NOTE | 2018-12-09 07:36 | NUR ---
ASSUMED PT CARE AT 1900 WITH REPORT TAKEN, PT IS ALERT AND ORIENTED WITH NO SIGN OF DISTRESS NOTED, SCHEDULED MEDS ADMINISTERED TO PT, PT TOLERATED PO INTAKE. PT IS STABLE ON THE MONITOR. PT SLEEPS THROUGH THE NIGHT, CONTINUE NURSING POC. DENIES ANY NEEDS AT THIS TIME.
[2018-12-09] MEDS ORDERED: METOPROLOL SUCC25 M1 PO (08:40)
[2018-12-09 12:22] VITALS: BP 135/52
== END 2018-12-09 13:36 | DRG 189 ==
LOC: ER 14:36 → 2N 17:38 → EROBS 17:38 → 2N 18:48
PROVIDERS: Nurse Practitioner; ADMIT Hospitalist
DX: J96.22 Acute and chronic respiratory failure with hypercapnia (principal); J44.1 Chronic obstructive pulmonary disease with (acute) exacerbation; I50.32 Chronic diastolic (congestive) heart failure; I11.0 Hypertensive heart disease with heart failure; J45.909 Unspecified asthma, uncomplicated; F41.9 Anxiety disorder, unspecified; I71.4 Abdominal aortic aneurysm, without rupture; J96.21 Acute and chronic respiratory failure with hypoxia; I27.20 Pulmonary hypertension, unspecified; M62.84 Sarcopenia; M81.0 Age-related osteoporosis without current pathological fracture; K59.00 Constipation, unspecified; G47.00 Insomnia, unspecified; E78.5 Hyperlipidemia, unspecified; R00.0 Tachycardia, unspecified; Z88.8 Allergy status to other drugs, medicaments and biological substances; Z87.891 Personal history of nicotine dependence; Z98.49 Cataract extraction status, unspecified eye; Z82.49 Family history of ischemic heart disease and other diseases of the circulatory system; Z99.81 Dependence on supplemental oxygen; Z83.3 Family history of diabetes mellitus; Z80.42 Family history of malignant neoplasm of prostate; Z82.5 Family history of asthma and other chronic lower respiratory diseases; Z79.899 Other long term (current) drug therapy
CPT/HCPCS: 10081

== ENCOUNTER 2019-02-18 17:24 | Inpatient (IN) | payer OTHER, MEDICARE ==
[~2019-02-18] VITALS: Ht 157.5 cm; Wt 59.0 kg
[~2019-02-18 17:24] MED LIST changes: +BUDESONIDE0.25 MG/2; +CALCIUM500 MG PO; +DOXYCYCLINE HYC50 MG PO; +DUCODYL5 MG PO; +KLOR-CON 1010 MEQ PO; +METOPROLOL SUCC25 M1 PO; +VIT C-ROSE HIP500 MG PO
[2019-02-18 17:30] VITALS: BP 150/69
[2019-02-18 18:34] LABS: HEMATOCRIT 38.7 % (37.0-47.0); HEMOGLOBIN 13.1 gm/dL (12.0-15.0); MCH 31.6 pg (26.0-34.0); RBC 4.16 mil/uL (4.20-5.00); RDW 14.7 % (10.5-14.5); WBC 10.1 thou/uL (4.0-11.0)
[2019-02-18 18:36] LABS: ANION GAP 6 mmol/L (7-16); BUN 15 mg/dL (7-18); CALCIUM 10.5 mg/dL (8.5-10.1); CHLORIDE 99 mmol/L (98-107); CO2 33 mmol/L (21-32); CREATININE 0.6 mg/dL (0.6-1.0); GLUCOSE 123 mg/dL (74-106); POTASSIUM 4.8 mmol/L (3.5-5.1); SODIUM 138 mmol/L (136-145)
[2019-02-18 18:45] LABS: ALBUMIN 4.4 g/dL (3.4-5.0); SGOT 21 U/L (15-37); SGPT 28 U/L (30-65); TOTAL BILIRUBIN 0.4 mg/dL (<0.1-1.0); TOTAL PROTEIN 7.8 g/dL (6.4-8.2); TROPONIN-I <0.06 ng/mL (<0.06)
[2019-02-18 18:58] LABS: ABSOLUTE NEUTROPHILS 8.1 thou/uL (1.4-8.2)
[2019-02-18 18:59] LABS: PLATELET COUNT 369 thou/uL (150-400)
[2019-02-18 20:04] VITALS: BP 156/72
[2019-02-18 20:30] VITALS: BP 161/75
[2019-02-18 20:34] VITALS: BP 144/65
--- NOTE | 2019-02-18 22:44 | EKG ---
[address] [address] ELECTROCARDIOGRAM REPORT Name: SAVANAH TIDWELL Room #: 205-P [facility] IN ..#: [id number] ������������������ Admission: 02/18/19 ������������������ Attend Phys: Mario Silva MD Discharge: ������������������ Date of : 43 Report #: [id number] ����������������������������������������������������������������� [id number] THIS REPORT FOR: //name// [facility] ED Test Date: 2019-02-18 Test Time: 19:07:15 Pat Name: SAVANAH TIDWELL Department: Room: [facility] Gender: F Bar Catcher: JULIENNE BYNUM : 1945 Requested By: Jennifer Mendez Order Number: [id number] MD: Mike Hugo Measurements Intervals [place] Rate: 78 P: -15 CO: 210 QRS: -24 QRSD: 104 T: 60 QT: 357 QTc: 407 Interpretive Statements Sinus rhythm Borderline left axis deviation Compared to ECG 12/08/2018 11:29:26 Atrial premature complex(es) no longer present Atrial abnormality no longer present ST (T wave) deviation no longer present Electronically Signed On 02-18-2019 22:44:24 CDT by Mike Hugo [email or web address] ��������������������������������������������� <ELECTRONICALLY SIGNED> ���������������������������������������� By: Mike Hugo MD ��������������������������������������������� 02/18/19 2244 06 06 Mike Hugo MD /EPI
[2019-02-19 01:00] VITALS: BP 116/58
[2019-02-19 04:00] VITALS: BP 129/69
--- NOTE | 2019-02-19 06:04 | NUR ---
PT ADMITTED TO ROOM 205 FROM ER, EDUCATED ON ROOM, AND UNIT, PT ALSO EDUCATED ON NEW TELE INTERFERENCE POLICY WITH NO FURTHER QUESTIONS, VSS, NO C/O PAIN, REMAINS ON 4L/NC SAME DOSE SHE WEARS AT HOME, REQUESTED HER XANAX FOR TONIGHT, JAMIN Stephen RN PRACT. ROUNDED ON PT, IV SOLUMEDROL STARTED ON PT BID, RT TX'S GIVEN ORDERED, PT STATES SOA IS BETTER, WILL CON'T TO MONITOR PER PPOC.
[2019-02-19 07:30] VITALS: BP 143/83
[2019-02-19 07:44] LABS: BE(vivo) 1.9 mmol/L (-2 to +3); HCO3 27.6 mmol/L (22.0-26.0); PCO2 47.7 mmHg (35.0-45.0); PO2 67.4 mmHg (80.0-100.0); pH 7.381 (7.360-7.450)
--- NOTE | 2019-02-19 14:39 | NUR ---
VSS REMAINS NSR. REMAINS ON HOME O2 AT 4L, REMAINS COURSE AND WHEEZY. HENDRICKS WITH MINIMAL EXERTION TO BRP, O2 SAT IS 94-97%. UP TO BRP WITH O2 AND SBA, STEADY ON FEET. WILL CONTINUE TO MONITER AND CARE FOR PT PER PLAN OF CARE
[2019-02-19 17:48] VITALS: BP 115/54
[2019-02-19 17:49] VITALS: BP 115/54
[2019-02-19 20:15] VITALS: BP 118/52
--- NOTE | 2019-02-20 04:02 | NUR ---
ASSESSMENT CHARTED. PATIENT QUESTIONING PREDNISONE BEING CANCELLED AND METOPROLOL BECAUSE SHE CAN NOT TAKE IT AND IT SHOULD NOT HAVE BEEN ON HER HOME MED LIST. MED LIST WAS RECONCILED, SPOKE WITH Sarina ZAMARRIPA AND MEDS WERE CHANGED ACCORDINGLY. PATIENT DOES NOT FEEL HER BREATHING HAS RESOLVED ENOUGH TO GO HOME TODAY.
[2019-02-20 04:27] VITALS: BP 144/61
[2019-02-20 07:40] VITALS: BP 122/81
[2019-02-20 14:02] LABS: HEMATOCRIT 35.5 % (37.0-47.0); HEMOGLOBIN 11.9 gm/dL (12.0-15.0); MCHC 33.4 g/dL (28.0-37.0); MCV 92.9 fL (80.0-100.0); RBC 3.83 mil/uL (4.20-5.00); RDW 14.9 % (10.5-14.5); WBC 7.1 thou/uL (4.0-11.0)
[2019-02-20 14:29] LABS: ALBUMIN 3.5 g/dL (3.4-5.0); CALCIUM 9.4 mg/dL (8.5-10.1); CREATININE 0.8 mg/dL (0.6-1.0); MAGNESIUM 1.9 mg/dL (1.8-2.4); POTASSIUM 4.5 mmol/L (3.5-5.1); TOTAL BILIRUBIN 0.3 mg/dL (<0.1-1.0); TOTAL PROTEIN 6.3 g/dL (6.4-8.2)
--- NOTE | 2019-02-20 14:51 | NUR ---
met with patient she resides in [facility] [place]. She reports she ambulates with walker to dining area. She uses the walker due to walker carries her oxygen. She has home oxygen via [facility] at 3 liters. She has used HH in past [facility] and agreeable to rec if needed at al.
[2019-02-20 15:43] VITALS: BP 120/56
--- NOTE | 2019-02-20 18:33 | NUR ---
PT ARRIVED FROM THIS AFTERNNON. PT STABLE AND RESTING COMFORTABLY. WILL CONTINUE TO MONITOR.
[2019-02-20 20:10] VITALS: BP 124/63
[2019-02-21 07:14] VITALS: BP 147/70
--- NOTE | 2019-02-21 08:09 | NUR ---
progress pt a/o x4 up ad lizette standard fall precaution. on 4 liters o2 and RT tx's continue. reports soa with activity but states its slowly improving. iv antibiotics and oral steroids continue. vss continue poc.
[2019-02-21 14:08] VITALS: BP 127/59
--- NOTE | 2019-02-21 19:20 | NUR ---
PT STABLE THROUGHOUT SHIFT. NO C/O PAIN AND PT STATED SHE WAS TOLERATING ACTIVITY MUCH BETTER. PT AMBULATED AROUND UNIT. PT TO DC TOMORROW.
[2019-02-21 20:27] VITALS: BP 136/68
--- NOTE | 2019-02-22 07:40 | NUR ---
progress pt breathing more easily this shift lungs coarse with a productive cough. o2 at 3 liters rt tx's continue pt up ad lizette voiding qs and denies pain at this time.
[2019-02-22 08:18] VITALS: BP 163/83
[2019-02-22] MEDS ORDERED: DOXYCYCLINE HYC50 MG PO (12:16)
[2019-02-22] MEDS ORDERED: PREDNISONE 10 M10 MG PO (12:16)
[2019-02-22 12:36] VITALS: BP 163/83
--- NOTE | 2019-02-22 14:19 | NUR ---
ASSUMED CARE 0700. FROM ASSISTED LIVING ALERT X4, UP WITH STAND BY ASSIST. 4L NASAL SELENE, USEES OXYGEN AT HOME. IV REMOVED. SCRIPTS CALL INTO HER PHARAMCY. DC BACK TO HER HOME TODAY
== END 2019-02-22 14:36 | disposition home or self-care (01) | DRG 189 ==
LOC: ER 17:24 → EROBS 19:52 → 2N 19:52 → 4W 02-20 14:58 → ENTRNSPT 02-22 14:28 → EDTRNSPTSTS 02-22 14:29 → 4W 02-22 14:36
PROVIDERS: Internal Medicine; Nurse Practitioner Acute Care; Physician Assistant; ADMIT Internal Medicine
DX: J96.21 Acute and chronic respiratory failure with hypoxia (principal); J44.1 Chronic obstructive pulmonary disease with (acute) exacerbation; I50.32 Chronic diastolic (congestive) heart failure; E44.0 Moderate protein-calorie malnutrition; I11.0 Hypertensive heart disease with heart failure; J45.909 Unspecified asthma, uncomplicated; I27.20 Pulmonary hypertension, unspecified; I71.2 Thoracic aortic aneurysm, without rupture; K59.00 Constipation, unspecified; F41.9 Anxiety disorder, unspecified; Z88.1 Allergy status to other antibiotic agents; Z88.8 Allergy status to other drugs, medicaments and biological substances; Z87.891 Personal history of nicotine dependence; Z82.5 Family history of asthma and other chronic lower respiratory diseases; Z83.3 Family history of diabetes mellitus; Z80.42 Family history of malignant neoplasm of prostate; Z79.82 Long term (current) use of aspirin; Z79.899 Other long term (current) drug therapy; Z99.81 Dependence on supplemental oxygen; Z68.23 Body mass index [BMI] 23.0-23.9, adult
CPT/HCPCS: 10047; 10081

== ENCOUNTER 2019-08-21 16:46 | Inpatient (IN) | payer OTHER, MEDICARE ==
[~2019-08-21] VITALS: Ht 160 cm; Wt 58.2 kg
[2019-08-21 17:25] LABS: ABSOLUTE NEUTROPHILS 6.7 thou/uL (1.4-8.2); BASOPHILS 0.7 % (0.0-2.0); EOSINOPHILS 2.9 % (0.0-3.0); HEMOGLOBIN 12.6 gm/dL (12.0-15.0); LYMPHOCYTES 11.5 % (24.0-44.0); MCH 31.5 pg (26.0-34.0); MCHC 33.2 g/dL (28.0-37.0); MCV 94.8 fL (80.0-100.0); MONOCYTES 10.3 % (1.0-8.0); PLATELET COUNT 315 thou/uL (150-400); POLYS 74.6 % (36.0-66.0); RBC 4.01 mil/uL (4.20-5.00); RDW 15.7 % (10.5-14.5)
[2019-08-21 17:33] LABS: ANION GAP 3 mmol/L (7-16); BUN 14 mg/dL (7-18); CALCIUM 10.7 mg/dL (8.5-10.1); CHLORIDE 98 mmol/L (98-107); CO2 37 mmol/L (21-32); CREATININE 0.5 mg/dL (0.6-1.0); GLUCOSE 90 mg/dL (74-106); POTASSIUM 4.3 mmol/L (3.5-5.1); SODIUM 138 mmol/L (136-145)
[2019-08-21 17:44] LABS: SGOT 19 U/L (15-37); SGPT 26 U/L (30-65); TOTAL BILIRUBIN 0.6 mg/dL (<0.1-1.0); TOTAL PROTEIN 7.6 g/dL (6.4-8.2); TROPONIN-I <0.06 ng/mL (<0.06)
[2019-08-21 17:57] LABS: BE(vivo) 7.7 mmol/L (-2 to +3); HCO3 33.9 mmol/L (22.0-26.0); PCO2 54.7 mmHg (35.0-45.0); PO2 86.9 mmHg (80.0-100.0); sO2 96.5 % (92.0-98.0)
[2019-08-21 20:50] VITALS: BP 134/59
[2019-08-21 21:09] VITALS: BP 134/59
[2019-08-21 21:25] VITALS: BP 121/49
[2019-08-22 04:08] VITALS: BP 117/62
--- NOTE | 2019-08-22 06:02 | NUR ---
PT ARRIVED FROM ER VIA CART, PLACED IN ROOM 354. ADMISSION ASSESSMENTS COMPLETED. PT REPORTING THAT SHE FEELS SHE IS BREATHING MUCH EASIER. DID OBSERVE THAT PT IS MILDLY SOA WHEN SPEAKING AND SHE STATES SHE IS EASILY SOA WITH ACTIVITY. CONTINUE TO MONITOR.
[2019-08-22 07:38] VITALS: BP 125/55
--- NOTE | 2019-08-22 08:19 | EKG ---
[address] [address] ELECTROCARDIOGRAM REPORT Name: TIDWELLSAVANAH Loki Room #: 354-P ADM IN ..#: [id number] Admission: 08/21/19 Attend Phys: Harris Romano MD Discharge: Date of : 43 Report #: [id number] THIS REPORT FOR: //name// [facility] ED Test Date: 2019-08-21 Test Time: 17:23:07 Pat Name: SAVANAH TIDWELL Department: Room: Counts include 234 beds at the [facility] Gender: F Diet Therapist: WG : 1945 Requested By: Devon Cheung Order Number: [id number] MD: Mike Hugo Measurements Intervals [place] Rate: 88 P: 54 AL: 191 QRS: 77 QRSD: 100 T: -15 QT: 373 QTc: 452 Interpretive Statements Sinus rhythm Borderline T abnormalities, inferior leads Compared to ECG 02/18/2019 19:07:15 T-wave abnormality now present Electronically Signed On 08-22-2019 8:19:38 HARM REDUCTION WORKER by Mike Hugo [email or web address] <ELECTRONICALLY SIGNED> By: Mike Hugo MD 08/22/19818 22 22 Mike Hugo MD /EPI
[2019-08-22 09:57] LABS: BASOPHILS 0.2 % (0.0-2.0); MCH 31.3 pg (26.0-34.0); WBC 5.8 thou/uL (4.0-11.0)
[2019-08-22 10:00] LABS: ABSOLUTE NEUTROPHILS 5.3 thou/uL (1.4-8.2); HEMATOCRIT 36.2 % (37.0-47.0); HEMOGLOBIN 11.9 gm/dL (12.0-15.0); LYMPHOCYTES 7.8 % (24.0-44.0); MCHC 32.9 g/dL (28.0-37.0); MCV 95.3 fL (80.0-100.0); MONOCYTES 1.1 % (1.0-8.0); PLATELET COUNT 309 thou/uL (150-400); POLYS 90.9 % (36.0-66.0); RDW 15.8 % (10.5-14.5)
[2019-08-22 10:10] LABS: CALCIUM 10.4 mg/dL (8.5-10.1); CREATININE 0.7 mg/dL (0.6-1.0); POTASSIUM 4.2 mmol/L (3.5-5.1)
--- NOTE | 2019-08-22 11:51 | NUR ---
INITIAL ASSESSMENT: SW reviewed chart and spoke with nursing and attending physician. Pt was admitted from home due to exacerbation of COPD. Pt is on IV steroids and IV abx. SW met with pt at bedside. Introduced role of SW. Pt is alert/orientated x 4. Pt reports that she lives alone in an apt at [facility]. Prior to admission, pt was independent with ADLs. Pt has home O2 through [facility]. Pt has used [facility] in the past for HH services and has been to and [facility]. Pt's PCP is Dr. Burks. Pt's plan is to return to her [place] apt when she is medically stable. SW is following to assist as needed with discharge planning.
[2019-08-22 12:08] VITALS: BP 139/65
[2019-08-22 15:57] VITALS: BP 117/72
--- NOTE | 2019-08-22 17:29 | NUR ---
ASSUMED CARE OF PATIENT AT 0700. VSS WITH BOUTS OF HIGHER TACHYCARDIA. 4 L NASAL CANNULA. PATIENT HAS UNPRODUCTIVE COUGH. CONTINUING TO MONITOR.
[2019-08-22 19:45] VITALS: BP 116/49
--- NOTE | 2019-08-23 03:27 | NUR ---
PATIENT ASSESSED AND IS ALERT X 4. SKIN WARM AND DRY. RESP EVEN AND UNLABORED. CAME IN DUE TO COPD. HAS SOME PRODUCTIVE SPUTUM AT TIMES. 02 AT 4LNC. GETS SOA ON ACTIVITY. HAS A RIGHT AC SL THAT FLUSHES WELL. NEW ANTIBIOTICS STARTED PER ORDER. TELE- SHOWS NSR. DENIES ANY PAIN. NO EDEMA NOTED TO LOWER EXTREMITIES. XANAS GIVEN PER ORDERS. REQUESTED LOSARTAM. CALLED DANITZA PATEL AND RECEIVED ANY ORDER TO GIVE ONE THIS PM PER PATIENT REQUEST. SHE ALSO ORDERED HCTZ TO BE STARTED IN AM. VOIDS WELL TO BSC, WITH STANBY ASSIST. CONT PLAN OF CARE.
[2019-08-23 03:53] VITALS: BP 128/53
[2019-08-23 05:43] LABS: HEMATOCRIT 34.4 % (37.0-47.0); HEMOGLOBIN 11.4 gm/dL (12.0-15.0); MCH 31.7 pg (26.0-34.0); MCHC 33.2 g/dL (28.0-37.0); MCV 95.4 fL (80.0-100.0); RBC 3.61 mil/uL (4.20-5.00); RDW 15.9 % (10.5-14.5); WBC 10.3 thou/uL (4.0-11.0)
[2019-08-23 06:17] LABS: CALCIUM 9.7 mg/dL (8.5-10.1); CREATININE 0.5 mg/dL (0.6-1.0); POTASSIUM 4.1 mmol/L (3.5-5.1)
[2019-08-23 07:49] VITALS: BP 139/68
[2019-08-23 10:55] LABS: URINE BILIRUBIN NEGATIVE (Negative); URINE BLOOD NEGATIVE (Negative); URINE CLARITY CLEAR; URINE COLOR YELLOW; URINE GLUCOSE-RANDOM* 3+ (Negative); URINE KETONES NEGATIVE (Negative); URINE LEUKOCYTES-REFLEX NEGATIVE (Negative); URINE NITRITE-REFLEX NEGATIVE (Negative); URINE PROTEIN (DIPSTICK) NEGATIVE (Negative); URINE UROBILINOGEN 0.2 E.U./dl (0.2-1.0)
[2019-08-23 11:26] VITALS: BP 134/63
--- NOTE | 2019-08-23 12:17 | NUR ---
SW reviewed chart and spoke with nursing and attending physician. Pt is progressing towards goals for discharge. Discharge back to [facility] is anticipated on 1-2 days. SW is following to assist as needed with discharge planning.
[2019-08-23 12:59] LABS: ALBUMIN 3.6 g/dL (3.4-5.0); TOTAL BILIRUBIN 0.2 mg/dL (<0.1-1.0); TOTAL PROTEIN 6.8 g/dL (6.4-8.2)
[2019-08-23 16:27] VITALS: BP 119/56
--- NOTE | 2019-08-23 19:44 | NUR ---
PT WITH O2 4L..LUNGS WHEEZY...PRODUCTIVE THICK SPUTUM...DR LOVE CONSULT ENTERED...PT REPORTS THAT SHE DESATED TO 85% WALKING IN ROOM...IT TOOK A FEW MINUTES TO RECOVER...
[2019-08-23 19:58] VITALS: BP 129/53
[2019-08-24 03:09] VITALS: BP 144/79
[2019-08-24 03:42] LABS: HEMATOCRIT 33.4 % (37.0-47.0); HEMOGLOBIN 10.9 gm/dL (12.0-15.0); MCH 31.5 pg (26.0-34.0); MCHC 32.8 g/dL (28.0-37.0); MCV 96.1 fL (80.0-100.0); RBC 3.48 mil/uL (4.20-5.00); RDW 15.5 % (10.5-14.5); WBC 10.8 thou/uL (4.0-11.0)
[2019-08-24 03:59] LABS: ANION GAP 3 mmol/L (7-16); BUN 23 mg/dL (7-18); CALCIUM 9.2 mg/dL (8.5-10.1); CHLORIDE 103 mmol/L (98-107); CHOLESTEROL 146 mg/dL (<200); CO2 33 mmol/L (21-32); CREATININE 0.5 mg/dL (0.6-1.0); GLUCOSE 127 mg/dL (74-106); HDL CHOLESTEROL 89 mg/dL (>40); LDL CHOLESTEROL 51 mg/dL (<100); POTASSIUM 4.2 mmol/L (3.5-5.1); SODIUM 139 mmol/L (136-145); TC:HDL 1.6 Ratio (Not establshd); TRIGLYCERIDE 32 mg/dL (<150); VLDL 6 mg/dL (<40)
[2019-08-24 04:11] LABS: SERUM ASSESSMENT Clear
[2019-08-24 07:33] VITALS: BP 126/77
--- NOTE | 2019-08-24 10:52 | NUR ---
PATIENT UP IN CHAIR FOR BREAKFAST. TOLERATING DIET WELL. STILL SOB WITH ACTIVITY. ON 4L/NC. UP WITH STANDBY ASSIST TO BSC. VERY PLEASANT AND COOPERATIVE. HOPING TO GO TO REHAB SOON.
--- NOTE | 2019-08-24 12:33 | NUR ---
DISCHARGE PLANNING. POSSIBLE WEEKEND DISCHARGE. POST ACUTE VERSUS HOME WITH HOME HEALTH SERVICES. PATIENT REFERRAL FAXED TO [facility] PER PATIENT REQUEST FOR POST ACUTE CARE NEEDS, SHOULD PATIENT DISCHARGE TO POST ACUTE CARE. CALL PLACED TO [facility] TO NOTIFY OF REFERRAL. [facility] TO REVIEW AND NOTIFY CM. PATIENT REFERRAL FAXED TO [facility] FOR HOME HEALTH NEEDS SHOULD PATIENT DISCHARGE TO HOME. CALL PALCED TO [facility]. SPOKE WITH SEAMUS. SEAMUS TO REVIEW REFERRAL AND NOTIFY.
--- NOTE | 2019-08-24 13:42 | NUR ---
SW reviewed chart and spoke with nursing and attending physician. Pt is progressing towards goals for discharge. Weekend discharge anticipated. 5N consulted to evaluate pt. Pt is too high level for inpt acute rehab. SW met with pt at bedside to discuss post-acute plans. Pt states she is hoping to discharge home with HH, but is agreeable with SNF placement if recommended by physicians. SW provided options for HH and SNFs. Pt requests referral to [facility], as she has used them in the past. Pt requests referral to [facility] SNF. Pt is agreeable with either discharge plan. community development planner to fax referrals to HH and SNF for review. Final discharge orders/summary will need to be faxed to either provider when available. SW is available to assist as needed with discharge planning. [facility]-- Admissions: [phone]
[2019-08-24 15:38] VITALS: BP 140/71
[2019-08-24 20:35] VITALS: BP 145/64
[2019-08-25 04:20] LABS: CALCIUM 9.5 mg/dL (8.5-10.1); CREATININE 0.4 mg/dL (0.6-1.0)
[2019-08-25 04:21] LABS: HEMATOCRIT 33.8 % (37.0-47.0); HEMOGLOBIN 11.2 gm/dL (12.0-15.0); MCH 31.7 pg (26.0-34.0); MCHC 33.2 g/dL (28.0-37.0); MCV 95.5 fL (80.0-100.0); RBC 3.53 mil/uL (4.20-5.00); RDW 15.4 % (10.5-14.5); WBC 7.8 thou/uL (4.0-11.0)
[2019-08-25 05:19] VITALS: BP 147/66
--- NOTE | 2019-08-25 06:14 | NUR ---
ASSUMED CARE FROM DAY SHIFT PT SITTING UP IN CHAIR AND GETTING TO BSC SB ASSIST , SOA NOTED WITH ACTIVITY REQUESTED RESP TREATMENT X1 THIS SHIFT , LOOSE COUGH NOTED. CHILD CAREGIVER PRIVATE HOME SHOWS NSR , PT RESTED WELL THROUGHOUT HOURLY ROUNDS, WILL CONTINUE WITH CURRRENT PLAN OF CARE.
[2019-08-25 07:20] VITALS: BP 162/69
[2019-08-25 15:38] VITALS: BP 128/63
--- NOTE | 2019-08-25 15:59 | NUR ---
ASSUMED CARE OF PT AT 0700. PT AOX4 IN NO ACUTE DISTRESS. UP AD MARK AROUND ROOM. STEADY GAIT. UNDERSTANDS HER LIMITS. SOA W/ EXERTION. FAIR LUNG SOUNDS. CALLS APPROPRIATELY. POTASSIUM BEING REPLACED. SUGARS WELL CONTROLLED. WILL CONT TO MONITOR.
[2019-08-25 20:05] VITALS: BP 150/62
[2019-08-26 00:09] LABS: GLYCOHEMOGLOBIN (HGB A1C) 5.1 % (4.8-5.6)
[2019-08-26 04:10] VITALS: BP 132/74
[2019-08-26 05:10] LABS: CALCIUM 8.8 mg/dL (8.5-10.1); CREATININE 0.4 mg/dL (0.6-1.0); POTASSIUM 3.7 mmol/L (3.5-5.1)
--- NOTE | 2019-08-26 07:21 | NUR ---
patient is alert and oriented. patient is up ad lizette. patient is on baseline oxygen. patient is pending possible discharge today with home health. patient is contient. patient denies pain. patient is resting comfortably in bed. ericam.
[2019-08-26] MEDS ORDERED: IPRATROPIU0.2 MG/1 M INH (14:08)
[2019-08-26] MEDS ORDERED: LEVALBUTER0.63 MG/3 INH (14:08)
[2019-08-26] MEDS ORDERED: CEFDINIR300 MG PO (14:10)
[2019-08-26] MEDS ORDERED: XANAX1 MG PO ×2 (14:10→14:13)
[2019-08-26] MEDS ORDERED: PREDNISONE 10 M10 M1 PO (14:11)
[2019-08-26 15:12] VITALS: BP 160/78
--- NOTE | 2019-08-26 15:50 | NUR ---
PATIENT DISCHARGED HOME AT THIS TIME. SHE WAS CONCERNED ABOUT HAVING TACHYCARDIA BUT AFTER SPEAKING TO DR LOVE, SHE CONSENTED TO GO HOME TODAY. EDUCATED ON NEED TO SPACE ACTIVITY AND TO SCHEDULE APPT WITH DR LOVE OUTPATIENT. WAS WHEELED DOWN TO PRIVATE CARE. NO OTHER COMPLAINTS.
== END 2019-08-26 15:48 | disposition home or self-care (01) | DRG 189 ==
LOC: ER 16:46 → 3W 20:28 → EROBS 20:28 → 3W 21:08
PROVIDERS: Emergency Medicine; Hospitalist; ADMIT Internal Medicine
DX: J96.21 Acute and chronic respiratory failure with hypoxia (principal); J44.1 Chronic obstructive pulmonary disease with (acute) exacerbation; E44.0 Moderate protein-calorie malnutrition; J44.0 Chronic obstructive pulmonary disease with (acute) lower respiratory infection; J96.22 Acute and chronic respiratory failure with hypercapnia; E83.52 Hypercalcemia; I10 Essential (primary) hypertension; J45.909 Unspecified asthma, uncomplicated; F41.9 Anxiety disorder, unspecified; E53.8 Deficiency of other specified B group vitamins; J20.9 Acute bronchitis, unspecified; I71.6 Thoracoabdominal aortic aneurysm, without rupture; Z88.1 Allergy status to other antibiotic agents; Z88.8 Allergy status to other drugs, medicaments and biological substances; Z87.891 Personal history of nicotine dependence; Z83.3 Family history of diabetes mellitus; Z82.5 Family history of asthma and other chronic lower respiratory diseases; Z80.42 Family history of malignant neoplasm of prostate; Z68.22 Body mass index [BMI] 22.0-22.9, adult; Z79.82 Long term (current) use of aspirin; Z71.6 Tobacco abuse counseling; Z79.899 Other long term (current) drug therapy
CPT/HCPCS: 10879

== ENCOUNTER → 2019-10-22 | Outpatient (CLI) | payer OTHER, MEDICARE ==
[~2019-10-22] MED LIST changes: +CEFDINIR300 MG PO; +IPRATROPIU0.2 MG/1 M INH; +LEVALBUTER0.63 MG/3 INH; +PREDNISONE 10 M10 M1 PO
[2019-10-22 14:43] LABS: CREATININE 0.5 mg/dL (0.6-1.0)
== END ==
LOC: CAT → EDSTATUS 11:43 → CAT 13:08
PROVIDERS: Internal Medicine
DX: I71.2 Thoracic aortic aneurysm, without rupture (principal); J43.9 Emphysema, unspecified; R91.1 Solitary pulmonary nodule; K76.89 Other specified diseases of liver; M43.8X4 Other specified deforming dorsopathies, thoracic region

== ENCOUNTER → 2020-03-20 | Outpatient (CLI) | payer OTHER, MEDICARE ==
[~2020-03-20] MED LIST changes: +ASA81BEC PO; -BUDESONIDE0.25 MG/2; +BUDESONIDE0.25 MG/2 INH; +DULCOLAX STOOL100 M1 PO; +VITAMIN D3 PO; +XOPENEX0.31 MG/3 INH
== END ==
LOC: CAT 10:06
PROVIDERS: ATTEND Pediatrics
DX: Z01.818 Encounter for other preprocedural examination (principal); Z11.59 Encounter for screening for other viral diseases; R91.1 Solitary pulmonary nodule; I25.10 Atherosclerotic heart disease of native coronary artery without angina pectoris

== ENCOUNTER 2020-03-26 06:27 | Day surgery (SDC) | payer OTHER, MEDICARE ==
[~2020-03-26] VITALS: Ht 162.6 cm; Wt 63.5 kg
[2020-03-26 07:12] VITALS: BP 138/83
--- NOTE | 2020-03-27 17:07 | PATH ---
[facility] [address] [place] [address] PATHOLOGY RPT PROCEDURE Name: SAVANAH TIDWELL Room #: DEP [facility]..#: [id number] Admission: 03/26/20 Date of : 43 Discharge: 03/26/20 Report #: [id number] Path Case #: [id number] Note [facility] Accession Number: [id number] TESTS RESULT FLAG UNITS REF RANGE LAB Clinician Provided Cytology Information No. of containers..01 Other (Miscellaneous) Source: BAL RLL DIAGNOSIS: BAL RLL NEGATIVE FOR MALIGNANT EPITHELIAL CELLS. PULMONARY MACROPHAGES (DUST CELLS) ARE PRESENT. Signed out by: Sugar Noyola MD, Pathologist NPI- [id number] Performed by: Jennifer Bland, Insurance Claims Clerk ([facility]) Gross description: 01 15ML, PINK, 1 TP /LCS 03/26/2020 1658 Local FLAG LEGEND: L-Low Normal,H-High Normal,LL-Alert Low,HH-Alert High <-Panic Low,>-Panic High,A-Abnormal,AA-Critical Abnormal Performed at: [address] [place] [address] Hussain Arnold MD, [address] [address] Sugar Noyola MD, Specimen Comment: A courtesy copy of this report has been sent to [phone] Specimen Comment: [phone] Specimen Comment: Report sent to / DR SANCHEZ Specimen Comment: A duplicate report has been generated due to demographic updates. Performed at: [address], [place], [place] [id number] MD Hussain Arnold MD Phone: [phone]
== END 2020-03-26 11:40 | disposition home or self-care (01) ==
LOC: TBA 06:27 → OR 06:27
PROVIDERS: ATTEND Pediatrics
DX: R91.8 Other nonspecific abnormal finding of lung field (principal); J43.9 Emphysema, unspecified; F41.9 Anxiety disorder, unspecified; I11.0 Hypertensive heart disease with heart failure; I50.9 Heart failure, unspecified; I48.91 Unspecified atrial fibrillation; E78.5 Hyperlipidemia, unspecified; K21.9 Gastro-esophageal reflux disease without esophagitis; Z98.41 Cataract extraction status, right eye; Z98.890 Other specified postprocedural states; Z79.899 Other long term (current) drug therapy; Z87.891 Personal history of nicotine dependence; Z79.01 Long term (current) use of anticoagulants; Z88.8 Allergy status to other drugs, medicaments and biological substances
CPT/HCPCS: 62110; 62900; 70005

== ENCOUNTER 2020-05-25 11:43 | Inpatient (IN) | payer OTHER, MEDICARE ==
[~2020-05-25] VITALS: Ht 162.6 cm; Wt 70.3 kg
[2020-05-25 11:44] VITALS: BP 162/99
[2020-05-25 13:23] LABS: HEMATOCRIT 37.4 % (37.0-47.0); HEMOGLOBIN 12.9 gm/dL (12.0-15.0); MCH 33.6 pg (26.0-34.0); MCHC 34.4 g/dL (28.0-37.0); MCV 97.5 fL (80.0-100.0); PLATELET COUNT 269 thou/uL (150-400); RBC 3.83 mil/uL (4.20-5.00); RDW 14.8 % (10.5-14.5); WBC 10.3 thou/uL (4.0-11.0)
[2020-05-25 13:25] LABS: ANION GAP 6 mmol/L (7-16); BUN 14 mg/dL (7-18); CALCIUM 9.7 mg/dL (8.5-10.1); CHLORIDE 96 mmol/L (98-107); CO2 31 mmol/L (21-32); CREATININE 0.6 mg/dL (0.6-1.0); GLUCOSE 113 mg/dL (74-106); POTASSIUM 4.1 mmol/L (3.5-5.1); SODIUM 133 mmol/L (136-145)
[2020-05-25 13:33] LABS: TROPONIN-I <0.06 ng/mL (<0.06)
[2020-05-25 14:05] LABS: ABSOLUTE NEUTROPHILS 8.8 thou/uL (1.4-8.2)
[2020-05-25] MEDS ORDERED: VERAPAMIL E.R240 M1 PO (17:49)
[2020-05-25 18:01] LABS: URINE BILIRUBIN NEGATIVE (Negative); URINE BLOOD NEGATIVE (Negative); URINE CLARITY CLEAR; URINE GLUCOSE-RANDOM* NEGATIVE (Negative); URINE KETONES NEGATIVE (Negative); URINE LEUKOCYTES-REFLEX NEGATIVE (Negative); URINE NITRITE-REFLEX NEGATIVE (Negative); URINE PROTEIN (DIPSTICK) NEGATIVE (Negative); URINE SPECIFIC GRAVITY 1.015 (1.005-1.035); URINE UROBILINOGEN 0.2 E.U./dl (0.2-1.0)
[2020-05-25 18:03] LABS: URINE COLOR AMBER
[2020-05-25 18:40] LABS: ALBUMIN 3.7 g/dL (3.4-5.0); TOTAL PROTEIN 6.9 g/dL (6.4-8.2)
[2020-05-25 23:53] VITALS: BP 128/77
[2020-05-26 00:29] VITALS: BP 128/72
[2020-05-26 08:33] VITALS: BP 177/125
--- NOTE | 2020-05-26 09:13 | EKG ---
[facility] [place] [address] ELECTROCARDIOGRAM REPORT Name: SAVANAH TIDWELL Room #: 349-I ADM IN M.R.#: [id number] Admission: 05/25/20 Attend Phys: Mario Silva MD Discharge: Date of : 43 Report #: [id number] THIS REPORT FOR: cc: Kurt Burks MD, Bernard O. MD Lundgren,Todd Armendariz MD [facility] ~ THIS REPORT FOR: //name// [facility] ED Test Date: 2020-05-25 Test Time: 12:08:33 Pat Name: SAVANAH TIDWELL Department: Room: 349 Gender: F Drilling Rig Operator: hayder : 1945 Requested By: Kodi Perez Order Number: [id number] MD: Todd Lozano Measurements Intervals [place] Rate: 92 P: 30 IA: 187 QRS: 62 QRSD: 103 T: 121 QT: 353 QTc: 437 Interpretive Statements Sinus rhythm RSR' in V1 or V2, right VCD T wave abnormality, lateral leads Compared to ECG 08/21/2019 17:23:07 Lateral T wave abnormality is present Electronically Signed On 05-26-2020 9:13:35 CDT by Todd Lozano [email or web address] <ELECTRONICALLY SIGNED> By: Todd Lozano MD, [facility] 05/26/20 0913 1208 1208 Todd Lozano MD, [facility] /EPI
--- NOTE | 2020-05-26 09:16 | EKG ---
[facility] [place] [address] ELECTROCARDIOGRAM REPORT Name: SAVANAH TIDWELL Room #: 349-I ADM IN M.R.#: [id number] Admission: 05/25/20 Attend Phys: Mario Silva MD Discharge: Date of : 43 Report #: [id number] THIS REPORT FOR: cc: Kurt Burks MD, Bernard O. MD Lundgren, Craig H. MD [facility] ~ THIS REPORT FOR: //name// [facility] ED Test Date: 2020-05-25 Test Time: 12:09:28 Pat Name: SAVANAH TIDWELL Department: Room: 349 Gender: F V Belt Inspector: hayder : 1945 Requested By: Kodi Perez Order Number: [id number] MD: Todd Lozano Measurements Intervals [place] Rate: 95 P: 31 UT: 181 QRS: 59 QRSD: 101 T: 109 QT: 347 QTc: 436 Interpretive Statements Sinus rhythm Possible inferior infarct, old Compared to ECG 08/21/2019 17:23:07 No significant change was found Electronically Signed On 05-26-2020 9:15:48 CDT by Todd Lozano [email or web address] <ELECTRONICALLY SIGNED> By: Todd Lozano MD, [facility] 05/26/20 0915 1209 1209 Todd Lozano MD, [facility] /EPI
[2020-05-26 13:58] VITALS: BP 108/55
[2020-05-26] MEDS ORDERED: [UNRECOGNIZED DRUG - CODE] PO (14:16)
[2020-05-26] MEDS ORDERED: RIFAMPIN 300 M300 MG PO (14:18)
[2020-05-26] MEDS ORDERED: PYRAZINAMIDE 5500 M1 PO (14:19)
[2020-05-26] MEDS ORDERED: MYAMBUTOL 400400 M1 PO (14:20)
[2020-05-26] MEDS ORDERED: VITAMIN B-650 M1 PO (14:25)
[2020-05-26 16:19] VITALS: BP 129/59
[2020-05-26 19:00] VITALS: BP 101/63
[2020-05-27] VITALS (12 sets, daily range): BP systolic 103–169; BP diastolic 45–109
[2020-05-27 06:10] LABS: HEMATOCRIT 37.1 % (37.0-47.0); HEMOGLOBIN 12.6 gm/dL (12.0-15.0); MCH 33.3 pg (26.0-34.0); MCV 98.1 fL (80.0-100.0); RBC 3.79 mil/uL (4.20-5.00); RDW 15.5 % (10.5-14.5); WBC 10.9 thou/uL (4.0-11.0)
[2020-05-27 06:29] LABS: CREATININE 0.7 mg/dL (0.6-1.0); MAGNESIUM 2.4 mg/dL (1.8-2.4); POTASSIUM 4.8 mmol/L (3.5-5.1)
--- NOTE | 2020-05-27 10:24 | EKG ---
[facility] [place] [address] ELECTROCARDIOGRAM REPORT Name: SAVANAH TIDWELL Room #: 357-P ADM IN M.R.#: [id number] Admission: 05/25/20 Attend Phys: Mario Silva MD Discharge: Date of : 43 Report #: [id number] THIS REPORT FOR: cc: Kurt Burks MD, Bernard O. MD Couchonnal, Luis F. MD ~ THIS REPORT FOR: //name// [facility] Test Date: 2020-05-27 Test Time: 09:55:06 Pat Name: SAVANAH TIDWELL Department: Room: 357 P Gender: F Felt Hat Mellowing Machine Operator: ALDA : 1945 Requested By: Mario Silva Order Number: [id number] : Mike Hugo Measurements Intervals [place] Rate: 159 P: [place]: QRS: 73 QRSD: 101 T: 160 QT: 247 QTc: 402 Interpretive Statements Atrial fibrillation with rapid V-rate Abnormal R-wave progression, late transition Repolarization abnormality, prob rate related Compared to ECG 05/25/2020 12:09:28 Early repolarization now present Sinus rhythm no longer present Myocardial infarct finding no longer present Electronically Signed On 05-27-2020 10:23:56 CDT by Mike Hugo [email or web address] <ELECTRONICALLY SIGNED> By: Mike Hugo MD 05/27/20 1023 4 Mike Hugo MD /EPI
[2020-05-28] VITALS (27 sets, daily range): BP systolic 74–138; BP diastolic 43–78
--- NOTE | 2020-05-28 08:36 | EKG ---
[facility] [place] [address] ELECTROCARDIOGRAM REPORT Name: SAVANAH TIDWELL Room #: 209-P ADM IN M.R.#: [id number] Admission: 05/25/20 Attend Phys: Mario Silva MD Discharge: Date of : 43 Report #: [id number] THIS REPORT FOR: cc: Kurt Burks MD, Bernard O. MD Lundgren,Todd Armendariz MD [facility] ~ THIS REPORT FOR: //name// [facility] Test Date: 2020-05-28 Test Time: 07:00:17 Pat Name: SAVANAH TIDWELL Department: Room: 209 P Gender: F Eclectic Doctor: ALDA : 1945 Requested By: Todd Lozano Order Number: [id number] MD: Todd Lozano Measurements Intervals [place] Rate: 61 P: 23 OK: 204 QRS: 68 QRSD: 103 T: 130 QT: 438 QTc: 442 Interpretive Statements Sinus rhythm RSR' in V1 or V2, right VCD Abnrm T, consider ischemia, anterolateral lds Compared to ECG 05/27/2020 09:55:06 Atrial fibrillation no longer present T wave abnormality is now present Electronically Signed On 05-28-2020 8:36:40 CDT by Todd Lozano [email or web address] <ELECTRONICALLY SIGNED> By: Todd Lozano MD, [facility] 05/28/20835 9 9 Todd Lozano MD, [facility] /EPI
--- NOTE | 2020-05-28 11:15 | 2DMMODE ---
[facility] [place] [address] 2 D/M-MODE ECHOCARDIOGRAM Name: SAVANAH TIDWELL Room #: 209-P ADM IN M.R.#: [id number] Admission: 05/25/20 Attend Phys: Mario Silva MD Discharge: Date of : 43 Report #: [id number] THIS REPORT FOR: cc: Kurt Burks MD, Bernard O. MD Lundgren, Craig H. MD [facility] ~ APPROVED REPORT Study performed: 05/28/2020 10:19:01 EXAM: Comprehensive 2D, Doppler, and color-flow Echocardiogram Patient Location: Bedside Room #: 209 Status: routine BSA: 1.74 HR: 72 bpm BP: 127/57 mmHg Rhythm: NSR Other Information Study Quality: Adequate Technically limited study due to COPD, patient sitting straight up in bed.. Indications Chest pain. Hx: COPD, CAD, tachycardia. 2D Dimensions RVDd: 32.89 mm IVSd: 10.18 (7-11mm) LVOT Diam: 20.44 (18-24mm) LVDd: 44.42 mm PWd: 9.90 (7-11mm) Ascending Ao: 33.31 (22-36mm) LVDs: 27.30 (25-40mm) Aortic Root: 36.67 mm Volumes Left Atrial Volume (Systole) Single Plane 4CH: 52.42 mL Single Plane 2CH: 60.96 mL LA ESV Index: 35.00 mL/m2 Aortic Valve AoV Peak Deondre.: 1.37 m/s AO Peak Gr.: 7.56 mmHg LVOT Max P.15 mmHg [facility] [address] [address] 2 D/M-MODE ECHOCARDIOGRAM Name: TIDWELLSAVANAH Loki Room #: 209-P [facility] IN [facility]#: [id number] Admission: 05/25/20 Attend Phys: Mario Silva, Discharge: Date of : 43 Report #: [id number] LVOT Max V: 1.02 m/s CORNELIUS Vmax: 2.43 cm2 Mitral Valve E/A Ratio: 0.6 MV Decel. Time: 283.75 ms MV E Max Deondre.: 0.90 m/s MV A Deondre.: 1.47 m/s MV PHT: 82.29 ms IVRT: 114.19 ms Pulmonary Valve PV Peak Deondre.: 1.03 m/s PV Peak Gr.: 4.20 mmHg Pulmonary Vein P Vein S: 0.60 m/s P Vein A: 0.29 m/s P Vein D: 0.48 m/s P Vein A Dur.: 143.0 msec P Vein S/D Ratio: 1.25 Tricuspid Valve TR Peak Deondre.: 2.92 m/s RAP Estimate: 5.00 mmHg TR Peak Gr.: 34.01 mmHg PA Pressure: 39.00 mmHg Left Ventricle The left ventricle is normal size. There is normal LV segmental wall motion. There is normal left ventricular wall thickness. Left ventricular systolic function is normal. LVEF is 55-60%. Mild diastolic dysfunction Right Ventricle The right ventricle is normal size. The right ventricular systolic function is normal. Atria The left atrium size is normal. The right atrium size is normal. Aortic Valve Aortic valve leaflets are mildly calcified. Trace to mild aortic regurgitation. There is no aortic valvular stenosis. Mitral Valve Mild mitral annular calcification. Trace mitral regurgitation. No evidence of mitral valve stenosis. [facility] [address] [place] [address] 2 D/M-MODE ECHOCARDIOGRAM Name: SAVANAH TIDWELL Room #: 209-P [facility] IN M.R.#: [id number] Admission: 05/25/20 Attend Phys: Mario Silva, Discharge: Date of : 43 Report #: [id number] Tricuspid Valve The tricuspid valve is normal in structure. Mild to moderate tricuspid regurgitation. Estimated PAP is 40mmHg. Pulmonic Valve Pulmonic valve is not well visualized. Great Vessels Aortic root is at the upper normal of limits. The ascending aorta is normal in size. IVC is normal in size and collapses >50% with inspiration. Pericardium There is no pericardial effusion. <Conclusion> Left ventricular systolic function is normal. There is normal LV segmental wall motion. LVEF is 55-60%. Mild diastolic dysfunction Aortic valve leaflets are mildly calcified. Trace to mild aortic regurgitation, no stenosis. Mild mitral annular calcification. Trace mitral regurgitation. Mild to moderate tricuspid regurgitation. Estimated pulmonary artery pressure of 40mmHg. There is no pericardial effusion. <ELECTRONICALLY SIGNED> By: Todd Lozano MD, FACC 05/28/20 1115 1115 1115 Todd Lozano MD, FACC /INF
[2020-05-28 15:34] LABS: HEMATOCRIT 24.6 % (37.0-47.0); HEMOGLOBIN 8.4 gm/dL (12.0-15.0); MCH 33.6 pg (26.0-34.0); MCHC 34.1 g/dL (28.0-37.0); MCV 98.6 fL (80.0-100.0); RBC 2.5 mil/uL (4.20-5.00); RDW 15.3 % (10.5-14.5)
--- NOTE | 2020-05-28 17:04 | CATHLAB ---
[facility] [place] [address] INVASIVE PROCEDURE REPORT Name: SAVANAH TIDWELL Room #: 245-P ADM IN M.R.#: [id number] Admission: 05/25/20 Attend Phys: Mario Silva MD Discharge: Date of : 43 Report #: [id number] THIS REPORT FOR: cc: Kurt Burks MD, Bernard O. MD Lundgren, Craig H. MD [facility] ~ APPROVED REPORT Study performed: 05/28/2020 13:06:40 Patient Details Patient Status: In-Patient Room #: The patient is a 74 year-old female Event Personnel Todd Lozano Nailhead Puncher, Chiquis Kovacs RTR Monitor, Jenifer Gironub, Freddy Lopez RN RN, Rox Powell RN RN, Huber Pedroza Nailhead Puncher, Debby Hampton RTR Scrub Procedures Performed Art Access - R femoral artery* Coronary Angiography Only 4214685 CORANG MARK Place w/wo Plasty Single Left Main 622778 MARK Place w/wo Plasty Single LAD 600913 Hemostasis with Manual pressure 50558 Initial Mod Sed Same Phys/QHP Gr5y 421367 27421 Mod Sed Same Phys/QHP Ea 897341 Procedure Narrative The Right Groin^ was infiltrated with 1% Lidocaine subcutaneous anesthesia. A PINNACLE 6FR Sheath #[id number] sheath was inserted into the RFA^. Coronary angiography was performed using coronary diagnostic catheters. The right coronary system was accessed and visualized with a JR4 catheter. The left coronary system was accessed and visualized with a AL1 catheter. There was no hematoma. Hemostasis was obtained with manual pressure. Intraoperative Conscious Sedation Sedation start time: 12:58 Case end Time: 15:39 Fentanyl 150 mcg Versed 4 mg Fluoro Time: 29.50 minutes Dose: DAP 39856.00 cGycm2 3110 mGy Contrast Type and Amount: Omnipaque 235 ml [facility] [place] [address] INVASIVE PROCEDURE REPORT Name: SAVANAH TIDWELL Room #: 245-P [facility] IN [facility]#: [id number] Admission: 05/25/20 Attend Phys: Mario Silva, Discharge: Date of : 43 Report #: [id number] Coronary Angiography The patient's coronary anatomy is right dominant. 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 Ultimately the left main was engaged with a AL modified diagnostic catheter after attmpts with multiple other catheters. Diagnostic Cath Left Main Critical 99% distal left main stenosis LAD 99% mid LAD stenosis with KAMALA II flow Diagonal 1 Small diffusely diseased first diagonal branch Circumflex Small nondominant circumflex comprised of two small marginal branches. 99% ostial circumflex stenosis Right Coronary Diffusely calcified and dominant right coronary. 40-50% mid right coronary stenosis, moderate distal right coronary plaquing R PDA Mild posterior descending branch plaquing. RPLV Mild posterior lateral branch plaquing Left Ventriculography Left Ventriculography was not performed. Ejection Fraction was 60-65% based off patient's Muga. Hemodynamics The aortic pressure is 164/71 mmHg with a mean of 107 mmHg. PCI Technique Lesion Anticoagulation was achieved with Heparin, Integrilin. Patient was preloaded with Plavix. Percutaneous coronary intervention was performed on the left main. The lesion stenosis prior to intervention was 99% with KAMALA 3 flow. A LAUNCHER 6FR AL 1 SH #[id number] Guide Catheter was used to engage the LM ostium. A Luge Wire .014 x 182CM #[id number] Interventional Guidewire was used to cross the lesion. BALLOON DILATION A Balloon catheter Euphora RX 2.5 x 15 #[id number] was inserted and inflated up to 14.00atm for 16seconds. Additional Inflation: 8atm for 18seconds. Multiple catheter and guide exchanges with ultimately an EBU 3.0 providing the best support. The same Euphora balloon was used [facility] [address] [place] [address] INVASIVE PROCEDURE REPORT Name: SAVANAH TIDWELL Room #: 245-P [facility] IN .R.#: [id number] Admission: 05/25/20 Attend Phys: Mario Silva, Discharge: Date of : 43 Report #: [id number] to predilate the mid LAD stenosis. STENT DEPLOYMENT A drug-eluting stent RESOLUTE ARLENE RX 4.0 X 12 #[id number] was inserted and inflated up to 18.00atm for 25seconds. POST STENT DEPLOYMENT BALLOON DILATION A Balloon catheter TREK NC RX 4.5 X 8 #[id number] was inserted and inflated up to 21.00atm for 20seconds. Additional Inflation: 20atm for 17seconds. Final angiography reveals 0 % stenosis with KAMALA 3 flow. PCI Technique Lesion 2 Percutaneous Coronary Intervention was performed on the mid left anterior descending artery segment. The lesion stenosis prior to intervention was 99% with KAMALA 2 flow. A LAUNCHER 6FR AL 1 #[id number] Guide Catheter was used to engage the ostium. A Luge Wire .014 x 182CM #[id number] Interventional Guidewire was used to cross the lesion. Balloon Dilation A Balloon catheter Euphora RX 2.5 x 15 #[id number] was inserted and inflated up to 12.00atm for 16seconds. Stent Deployment A drug-eluting stent RESOLUTE ARLENE RX 2.75 X15 #[id number] was inserted and inflated up to 12.00atm for 16seconds. Post Stent Deployment Balloon Dilation A Balloon catheter TREK NC RX 2.75 X 8 #[id number] was inserted and inflated up to 18.00atm for 26seconds. Additional Inflation: 18.00atm for 26seconds. Additional Inflation: 22.00atm for 21seconds. Final angiography reveals 0 % stenosis with KAMALA 3 flow. Conclusion 1. Critical distal left main stenosis stented with a 4.0 x 12mm Resolute stent, post-dilated to 4.5mm 2. Critical mid LAD stenosis stented with a 2.75 x 15mm Resolute stent 3. Small, nondominant circumflex with severe ostial stenosis [facility] [address] [place] [address] INVASIVE PROCEDURE REPORT Name: SAVANAH TIDWELL Room #: 245-P ADM IN M.R.#: [id number] Admission: 05/25/20 Attend Phys: Mario Silva, Discharge: Date of : 43 Report #: [id number] 4. Densely calcified right coronary, dominant, with 40-50% mid RCA stenosis <ELECTRONICALLY SIGNED> By: Todd Lozano MD, FAC 05/28/201703 03 03 Todd Lozano MD, FAC /INF
[2020-05-29] VITALS (18 sets, daily range): BP systolic 100–124; BP diastolic 49–68
[2020-05-29 05:40] LABS: HEMATOCRIT 31.8 % (37.0-47.0); MCH 33.3 pg (26.0-34.0); MCHC 34.2 g/dL (28.0-37.0); MCV 97.3 fL (80.0-100.0); RBC 3.27 mil/uL (4.20-5.00); RDW 16.4 % (10.5-14.5)
[2020-05-29 05:54] LABS: ALBUMIN 2.8 g/dL (3.4-5.0); ANION GAP 8 mmol/L (7-16); BUN 16 mg/dL (7-18); CALCIUM 8.1 mg/dL (8.5-10.1); CHLORIDE 105 mmol/L (98-107); CHOLESTEROL 141 mg/dL (<200); CO2 26 mmol/L (21-32); CREATININE 0.6 mg/dL (0.6-1.0); GLUCOSE 173 mg/dL (74-106); HDL CHOLESTEROL 83 mg/dL (>40); LDL CHOLESTEROL 43 mg/dL (<100); POTASSIUM 4.3 mmol/L (3.5-5.1); SGOT 60 U/L (15-37); SGPT 33 U/L (30-65); SODIUM 139 mmol/L (136-145); TC:HDL 1.7 Ratio (Not establshd); TOTAL BILIRUBIN 0.4 mg/dL (0.2-1.0); TOTAL PROTEIN 5.2 g/dL (6.4-8.2); TRIGLYCERIDE 75 mg/dL (<150); VLDL 15 mg/dL (<40)
[2020-05-29 06:18] LABS: HEMOGLOBIN 10.9 gm/dL (12.0-15.0)
[2020-05-29 06:30] LABS: TROPONIN-I 20.96 ng/mL (<0.06)
--- NOTE | 2020-05-29 09:13 | EKG ---
[facility] [place] [address] ELECTROCARDIOGRAM REPORT Name: SAVANAH TIDWELL Room #: 245-P ADM IN M.R.#: [id number] Admission: 05/25/20 Attend Phys: Mario Silva MD Discharge: Date of : 43 Report #: [id number] THIS REPORT FOR: cc: Kurt Burks MD, Bernard O. MD Couchonnal, Luis F. MD ~ THIS REPORT FOR: //name// [facility] Test Date: 2020-05-28 Test Time: 17:22:22 Pat Name: SAVANAH TIDWELL Department: Room: [facility] Gender: F Corporate Officer: POST CATH : 1945 Requested By: Todd Lozano Order Number: [id number] MD: Mike Hugo Measurements Intervals [place] Rate: 98 P: 79 WA: 179 QRS: 97 QRSD: 97 T: 72 QT: 354 QTc: 453 Interpretive Statements Sinus rhythm Probable left atrial enlargement Right axis deviation Borderline repol abnrm, anterolateral leads Baseline wander in lead(s) II Compared to ECG 05/28/2020 07:00:17 Right-axis deviation now present Possible ischemia no longer present Electronically Signed On 05-29-2020 9:12:56 CDT by Mike Hugo [email or web address] <ELECTRONICALLY SIGNED> By: Mike Hugo MD 05/29/20911 21 21 Mike Hugo MD /EPI
--- NOTE | 2020-05-29 09:17 | EKG ---
[facility] [place] [address] ELECTROCARDIOGRAM REPORT Name: SAVANAH TIDWELL Room #: 245-P ADM IN M.R.#: [id number] Admission: 05/25/20 Attend Phys: Mario Silva MD Discharge: Date of : 43 Report #: [id number] THIS REPORT FOR: cc: Kurt Burks MD, Bernard O. MD Couchonnal, Luis F. 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1945 Requested By: Todd Lozano Order Number: [id number] MD: Mike Hugo Measurements Intervals [place] Rate: 101 P: 71 MN: 188 QRS: 95 QRSD: 88 T: -7 QT: 305 QTc: 396 Interpretive Statements Sinus tachycardia Left atrial enlargement Probable right ventricular hypertrophy Borderline repol abnormality, diffuse leads Compared to ECG 05/28/2020 17:22:22 Sinus rhythm no longer present Right-axis deviation no longer present Electronically Signed On 05-29-2020 9:17:08 CDT by Mike Hugo [email or web address] <ELECTRONICALLY SIGNED> By: Mike uHgo MD 05/29/20916 4 4 Mike Hugo MD /EPI
[2020-05-30] VITALS (9 sets, daily range): BP systolic 108–147; BP diastolic 51–81
[2020-05-30 05:22] LABS: HEMOGLOBIN 9.5 gm/dL (12.0-15.0); MCH 32.8 pg (26.0-34.0); MCHC 33.9 g/dL (28.0-37.0); MCV 96.6 fL (80.0-100.0); RBC 2.9 mil/uL (4.20-5.00); RDW 16.2 % (10.5-14.5); WBC 11.9 thou/uL (4.0-11.0)
[2020-05-30] MEDS ORDERED: CLOPIDOGREL75 MG PO (08:42)
[2020-05-30] MEDS ORDERED: LIPITOR40 MG PO (08:42)
[2020-05-30] MEDS ORDERED: MULTAQ 400 MG400 MG PO (08:42)
[2020-05-31 05:09] VITALS: BP 133/64
[2020-05-31 05:37] LABS: HEMATOCRIT 27.5 % (37.0-47.0); HEMOGLOBIN 9.4 gm/dL (12.0-15.0); MCH 33.2 pg (26.0-34.0); MCHC 34.1 g/dL (28.0-37.0); MCV 97.4 fL (80.0-100.0); RBC 2.83 mil/uL (4.20-5.00); RDW 15.9 % (10.5-14.5); WBC 9.4 thou/uL (4.0-11.0)
[2020-05-31 06:04] LABS: CALCIUM 8.3 mg/dL (8.5-10.1); CREATININE 0.7 mg/dL (0.6-1.0); POTASSIUM 4.4 mmol/L (3.5-5.1)
[2020-05-31 07:10] VITALS: BP 145/77
[2020-05-31 12:00] VITALS: BP 127/55
[2020-05-31 15:40] VITALS: BP 123/53
[2020-05-31 19:40] VITALS: BP 126/56
[2020-06-01 04:30] VITALS: BP 145/78
[2020-06-01 08:15] VITALS: BP 144/80
[2020-06-01 11:30] VITALS: BP 149/78
[2020-06-01 15:40] VITALS: BP 110/62
[2020-06-02 05:44] LABS: HEMATOCRIT 27.3 % (37.0-47.0); HEMOGLOBIN 9.4 gm/dL (12.0-15.0); MCH 33.3 pg (26.0-34.0); MCHC 34.3 g/dL (28.0-37.0); MCV 97.1 fL (80.0-100.0); RBC 2.81 mil/uL (4.20-5.00); RDW 15.7 % (10.5-14.5); WBC 7.6 thou/uL (4.0-11.0)
[2020-06-02 05:56] VITALS: BP 143/73
[2020-06-02 06:05] LABS: CALCIUM 8.8 mg/dL (8.5-10.1); CREATININE 0.7 mg/dL (0.6-1.0); POTASSIUM 3.8 mmol/L (3.5-5.1)
--- NOTE | 2020-06-02 07:57 | EKG ---
[facility] [address] ELECTROCARDIOGRAM REPORT Name: SAVANAH TIDWELL Room #: 208-P ADM IN M.R.#: [id number] Admission: 05/25/20 Attend Phys: Mario Silva MD Discharge: Date of : 43 Report #: [id number] THIS REPORT FOR: cc: Kurt Burks MD, Bernard O. MD Lundgren, Craig H. MD [facility] ~ THIS REPORT FOR: //name// [facility] Test Date: 2020-05-27 Test Time: 13:50:30 Pat Name: SAVANAH TIDWELL Department: Room: 208 P Gender: F Manager Private: SUSY : 1945 Requested By: Mario Silva Order Number: [id number] MD: Todd Lozano Measurements Intervals [place] Rate: 63 P: 19 UT: 208 QRS: 79 QRSD: 109 T: 126 QT: 448 QTc: 459 Interpretive Statements Sinus rhythm Abnrm T, consider ischemia, anterolateral lds Compared to ECG 05/27/2020 09:55:06 Possible ischemia now present Atrial fibrillation no longer present Electronically Signed On 06-02-2020 7:56:53 CDT by Todd Lozano [email or web address] <ELECTRONICALLY SIGNED> By: Todd Lozano MD, FAC 06/02/20 0756 1350 1350 Todd Lozano MD, [facility] /EPI
[2020-06-02 08:00] VITALS: BP 148/71
--- NOTE | 2020-06-02 08:03 | EKG ---
[facility] [place] [address] ELECTROCARDIOGRAM REPORT Name: SAVANAH TIDWELL Room #: 208-P ADM IN M.R.#: [id number] Admission: 05/25/20 Attend Phys: Mario Silva MD Discharge: Date of : 43 Report #: [id number] THIS REPORT FOR: cc: Kurt Burks MD, Bernard O. MD Lundgren, Craig H. MD [facility] ~ THIS REPORT FOR: //name// [facility] Test Date: 2020-05-31 Test Time: 07:57:51 Pat Name: SAVANAH TIDWELL Department: Room: 208 P Gender: F Scale Shooter: Perez CASSIDY : 1945 Requested By: Todd Lozano Order Number: [id number] MD: Todd Lozano Measurements Intervals [place] Rate: 78 P: 30 NV: 190 QRS: 61 QRSD: 96 T: 32 QT: 340 QTc: 388 Interpretive Statements Sinus rhythm Borderline repolarization abnormality Compared to ECG 05/29/2020 07:15:57 Sinus tachycardia no longer present Electronically Signed On 06-02-2020 8:03:28 CDT by Todd Lozano [email or web address] <ELECTRONICALLY SIGNED> By: Todd Lozano MD, [facility] 06/02/20 0803 0757 0757 Todd Lozano MD, [facility] /EPI
[2020-06-02] MEDS ORDERED: VERAPAMIL HCL180 M4 PO (09:55)
[2020-06-02 11:20] VITALS: BP 148/71
[2020-06-02 12:21] VITALS: BP 131/62
== END 2020-06-02 15:45 | disposition home or self-care (01) | DRG 246 ==
LOC: ER 11:43 → EROBS 16:56 → 3W 16:56 → 2N 05-27 18:37 → ICU 05-28 16:04 → 2N 05-29 15:45
PROVIDERS: Emergency Medicine; Hospitalist; Internal Medicine; ADMIT Internal Medicine; ATTEND Internal Medicine
DX: I21.4 Non-ST elevation (NSTEMI) myocardial infarction (principal); R65.11 Systemic inflammatory response syndrome (SIRS) of non-infectious origin with acute organ dysfunction; J96.21 Acute and chronic respiratory failure with hypoxia; J96.22 Acute and chronic respiratory failure with hypercapnia; J44.1 Chronic obstructive pulmonary disease with (acute) exacerbation; E87.1 Hypo-osmolality and hyponatremia; I50.32 Chronic diastolic (congestive) heart failure; A15.8 Other respiratory tuberculosis; I48.20 Chronic atrial fibrillation, unspecified; I97.630 Postprocedural hematoma of a circulatory system organ or structure following a cardiac catheterization; I48.0 Paroxysmal atrial fibrillation; R91.8 Other nonspecific abnormal finding of lung field; E78.5 Hyperlipidemia, unspecified; I73.9 Peripheral vascular disease, unspecified; F41.1 Generalized anxiety disorder; I11.0 Hypertensive heart disease with heart failure; I27.20 Pulmonary hypertension, unspecified; I25.10 Atherosclerotic heart disease of native coronary artery without angina pectoris; M62.84 Sarcopenia; Y83.8 Other surgical procedures as the cause of abnormal reaction of the patient, or of later complication, without mention of misadventure at the time of the procedure; Y71.8 Miscellaneous cardiovascular devices associated with adverse incidents, not elsewhere classified; Y92.238 Other place in hospital as the place of occurrence of the external cause; I71.6 Thoracoabdominal aortic aneurysm, without rupture; Z20.828 Contact with and (suspected) exposure to other viral communicable diseases; Z98.41 Cataract extraction status, right eye; Z79.82 Long term (current) use of aspirin; Z79.899 Other long term (current) drug therapy; Z88.1 Allergy status to other antibiotic agents; Z88.8 Allergy status to other drugs, medicaments and biological substances; Z87.891 Personal history of nicotine dependence
CPT/HCPCS: 10080; 10081; 10203; 85076

== ENCOUNTER 2020-06-13 14:17 | Inpatient (IN) | payer OTHER, MEDICARE ==
[~2020-06-13] VITALS: Ht 162.6 cm; Wt 68.0 kg
[~2020-06-13 14:17] MED LIST changes: +CLOPIDOGREL75 MG PO; +LIPITOR40 MG PO; +MULTAQ 400 MG400 MG PO; +MYAMBUTOL 400400 M1 PO; +PYRAZINAMIDE 5500 M1 PO; +RIFAMPIN 300 M300 MG PO; +VERAPAMIL HCL180 M4 PO; +VITAMIN B-650 M1 PO; +[UNRECOGNIZED DRUG - CODE] PO
[2020-06-13 14:30] VITALS: BP 165/93
[2020-06-13 15:08] LABS: HEMATOCRIT 30.1 % (37.0-47.0); HEMOGLOBIN 10.8 gm/dL (12.0-15.0); MCH 34.8 pg (26.0-34.0); MCHC 35.9 g/dL (28.0-37.0); MCV 96.9 fL (80.0-100.0); PLATELET COUNT 278 thou/uL (150-400); RBC 3.11 mil/uL (4.20-5.00); RDW 18.6 % (10.5-14.5); WBC 11.1 thou/uL (4.0-11.0)
[2020-06-13 15:12] LABS: ANION GAP 10 mmol/L (7-16); BUN 9 mg/dL (7-18); CALCIUM 9.4 mg/dL (8.5-10.1); CHLORIDE 91 mmol/L (98-107); CO2 27 mmol/L (21-32); CREATININE 0.5 mg/dL (0.6-1.0); GLUCOSE 127 mg/dL (74-106); POTASSIUM 4.3 mmol/L (3.5-5.1); SODIUM 128 mmol/L (136-145)
--- NOTE | 2020-06-13 15:18 | EKG ---
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
[2020-06-13 15:22] LABS: ALBUMIN 3.4 g/dL (3.4-5.0); SGOT 22 U/L (15-37); SGPT 36 U/L (30-65); TOTAL BILIRUBIN 0.8 mg/dL (0.2-1.0); TOTAL PROTEIN 7.1 g/dL (6.4-8.2); TROPONIN-I <0.06 ng/mL (<0.06)
[2020-06-13 15:44] LABS: BE(vivo) 0.9 mmol/L (-2 to +3); HCO3 25.8 mmol/L (22.0-26.0); PCO2 42.4 mmHg (35.0-45.0); PO2 99.5 mmHg (80.0-100.0); pH 7.402 (7.360-7.450); sO2 97.5 % (92.0-98.0)
[2020-06-13] MEDS ORDERED: VERAPAMIL E.R240 M1 PO (16:13)
[2020-06-13] MEDS ORDERED: VITAMIN D325 MC5 PO (16:13)
[2020-06-13] MEDS ORDERED: INCRUSE ELLI62.5 MCG INH (16:14)
[2020-06-13 16:16] LABS: PLATELET ESTIMATE NORMAL
--- NOTE | 2020-06-13 19:20 | NUR ---
Safia in to answer light. Pt reports L IV is burning. Flushes fine per RN. Stopped for patient comfort.
--- NOTE | 2020-06-13 20:10 | NUR ---
Pt pushes call light and complains that L IV is burning. IV is flushing fine per MISA Baig. Zithromax stopped per patient request. Will restart in R wrist IV as soon as zosyn finishes.
[2020-06-13 20:13] VITALS: BP 131/63
[2020-06-13 21:36] VITALS: BP 122/69
[2020-06-14] VITALS: BP 108/53
[2020-06-14 05:31] LABS: HEMATOCRIT 26.9 % (37.0-47.0); HEMOGLOBIN 9.1 gm/dL (12.0-15.0); MCH 33.5 pg (26.0-34.0); MCHC 33.6 g/dL (28.0-37.0); MCV 99.6 fL (80.0-100.0); RBC 2.7 mil/uL (4.20-5.00); RDW 19.6 % (10.5-14.5); WBC 4.6 thou/uL (4.0-11.0)
[2020-06-14 06:03] LABS: CALCIUM 8.2 mg/dL (8.5-10.1); CREATININE 0.5 mg/dL (0.6-1.0); POTASSIUM 3.6 mmol/L (3.5-5.1)
--- NOTE | 2020-06-14 06:08 | NUR ---
PT ARRIVED VIA ER ON CHART. PT COMPLAINS OF SOA AND WILL CALL OUT FOR BREATHING TX. PT CURRENTLY ON 4L VIA ID. VSS, NO COMPLAINTS OF N/V/P. ISOLATION PRECAUTIONS FOR COVID R/O. POC INCLUDES IVPB ANTIBIOTICS AND STEROIDS.
[2020-06-14 08:04] VITALS: BP 120/73
[2020-06-14 11:07] VITALS: BP 112/60
[2020-06-14 15:02] VITALS: BP 108/47
--- NOTE | 2020-06-14 18:26 | NUR ---
ASSUMED PATIENT CARE AT 0700. A/O X4. ANXIOUS. TOLERATED ON 4L/NC. UP WITH ASSISTED. COVID NEGATIVE. PROGRESSING TOWARDS POC GOALS.
[2020-06-14 19:12] VITALS: BP 126/59
--- NOTE | 2020-06-14 22:59 | NUR ---
REPORT CALLED TO [facility]. PT VERBALIZED UNDERSTANDING OF TRANSFER TO NONE COVID FLOOR. PT HAD ALL OF HER BELONGINGS PACKED AND TAKEN WITH HER.
--- NOTE | 2020-06-14 23:08 | NUR ---
PT UP TO CHAIR WATCHING TV. REQUESTED PRN ANXIETY AND SLEEP. PT SMILING GOOD EYE CONTACT. LUNGS DIMINISHED. O2 PER NC. CALLS FOR ASSIST WITH TRANSFERS.
[2020-06-15 00:03] VITALS: BP 94/41
[2020-06-15 00:41] VITALS: BP 109/59
--- NOTE | 2020-06-15 00:42 | NUR ---
PT TRANSFERED TO THE UNIT AT 2340. PT IS A/O X4. PLEASANT BUT APPEARS VERY ANXIOUS. HAS REQUESTED A BRTX. NOTIFIED RESPITORY OF REQUEST. O2 IS 98% ON NC. DENIES ANY PAIN OR DISCOMFORT AT THIS TIME. CURRENTLY PT IS SITTING UP IN HER BED AWAITING FOR BRTX. FALL PRECAUTIONS ARE IN PLACE, CALL LIGHT IS WITHIN REACH. WILL CONTINUE TO MONITOR.
--- NOTE | 2020-06-15 04:59 | HC ---
[facility] [place] [address] CONSULTATION Name: SAVANAH TIDWELL Room #: 449-I ADM IN M.R.#: [id number] Admission: 06/13/20 Attend Phys: Mehdi Angela MD Discharge: Date of : 43 Report #: [id number] THIS REPORT FOR: cc: FAM - No family physician/PCP FAM - No family physician/PCP Beny Melendez MD ~ CC: [facility] physician/PCP Mehdi Angela DATE OF SERVICE: 06/14/2020 INFECTIOUS DISEASE CONSULTATION ATTENDING PHYSICIAN: Dr. Angela REASON FOR EVALUATION: Complicated pneumonitis, has known history of Mycobacterium tuberculosis pulmonary infection as well as underlying severe COPD. HISTORY OF PRESENT ILLNESS: Chart reviewed, patient examined. This is a 74-year-old woman known to our service, who was diagnosed within the last 4 weeks with Mycobacterium tuberculosis. She had been on combination therapy, had experienced nausea, had been in communication with Dr. Saravia, trying to sort out this was indeed due to adverse drug effect. She continued to struggle with her breathing. She is normally on 4 liters of oxygen per nasal cannula. She felt tightness and had associated cough as well due to progressive discomfort. She did present and subsequently was admitted, felt she had issue with exacerbation of her COPD. It is notable repeat CT compared to late May was otherwise unchanged with fibrosis as well as a left upper lobe mass. She has had negative testing for COVID-19 infection. She continued on anti-tuberculosis therapy with ethambutol, INH and rifampin. Azithromycin, piperacillin and tazobactam were added for possible complicating lower respiratory tract infection. She is generally lucid. She is overall little different than on admission from her standpoint. She denies significant pain or GI related complaints. She has been afebrile. ALLERGIES: LABETALOL, CEPHALEXIN, which causes more of an adverse drug effect with ____ has been avoided due to her aortic aneurysm. CURRENT MEDICATIONS: Include atorvastatin, pyridoxine, hydrochlorothiazide, potassium, losartan, aspirin, verapamil, clopidogrel, rifampin, pyrazinamide, isoniazid, ethambutol, azithromycin, budesonide, methylprednisolone, Zosyn, alprazolam, levalbuterol, zolpidem. PAST MEDICAL HISTORY: As described above. Severe COPD, O2 requiring 3-4 liters with steroid dependence as well; hypertension; asthma; anxiety; recently [address] [address] CONSULTATION Name: SAVANAH TIDWELL Room #: 449-I [facility] IN [facility]#: [id number] Admission: 06/13/20 Attend Phys: Mehdi Angela MD Discharge: Date of : 43 Report #: [id number] diagnosed with Mycobacterium tuberculosis; has known vasculopathy with coronary artery disease acute myocardial infarction, has a previous coronary stenting; hyperlipidemia. SOCIAL HISTORY: Available in chart. FAMILY HISTORY: Available in chart. REVIEW OF SYSTEMS: As above. PHYSICAL EXAMINATION: GENERAL: She is sitting in the chair, alert, cooperative. She is lucid. She is in moderate distress secondary to her breathing, somewhat chronically ill appearing, undernourished. VITAL SIGNS: Temperature 98.4, pulse 83, respirations 16, blood pressure 120/73. SKIN: Warm, dry, no rashes. HEENT: Normocephalic. Extraocular muscles intact. She has got nasal cannula in place. NECK: Supple. LUNGS: Diminished breath sounds overall, scattered coarse sounds. HEART: Regular. I do not appreciate a murmur. ABDOMEN: Soft, mildly distended, nontender. GENITOURINARY: Deferred. RECTAL: Deferred. LABORATORY DATA: Blood cultures are sterile thus far. Coronavirus PCR was negative. Electrolytes: Sodium 136, is up from 128 on admission; potassium 3.6; chloride 100; bicarbonate 27; anion gap of 9; BUN and creatinine 8 and 0.5. Estimated GFR of 120. CBC: White count of 4.6, H and H 9.1 and 26.9, platelets of 244. CT chest, PE protocol as noted above. ABGs; pH 7.402, pCO2 of 42.4, pO2 of 99.5 on 3.5 liters, which is her baseline. ASSESSMENT AND PLAN: 1. Mycobacterium tuberculosis pulmonary infection. 2. Severe chronic obstructive pulmonary disease complicated by chronic supplemental oxygen requirement with exacerbations. 3. Coronary artery disease. She continues to be quite tenuous at this point. We will continue broad-spectrum antimicrobial therapy not only for the anti-tuberculosis, try to address possible adverse drug effect due to the nausea, she is taking Zofran for that preemptively. At this point, can exclude bronchitis, although radiographically there is no evidence of big change from [facility] [address] [place] [address] CONSULTATION Name: SAVANAH TIDWELL Room #: 449-I [facility] IN M.R.#: [id number] Admission: 06/13/20 Attend Phys: Mehdi Angela MD Discharge: Date of : 43 Report #: [id number] previous. We will see how she does clinically over the next 48-72 hours. She is very little reserve at this point. <ELECTRONICALLY SIGNED> By: Beny Melendez MD 06/15/20 0459 1011 1200 Beny Melendez MD /nt
[2020-06-15 06:00] LABS: HEMATOCRIT 26.9 % (37.0-47.0); HEMOGLOBIN 9.2 gm/dL (12.0-15.0); MCH 33.8 pg (26.0-34.0); MCV 99.4 fL (80.0-100.0); RBC 2.71 mil/uL (4.20-5.00); RDW 19.3 % (10.5-14.5)
[2020-06-15 06:16] LABS: CALCIUM 8.5 mg/dL (8.5-10.1); CREATININE 0.5 mg/dL (0.6-1.0); POTASSIUM 3.9 mmol/L (3.5-5.1)
[2020-06-15 07:29] VITALS: BP 157/83
[2020-06-15 16:22] VITALS: BP 136/57
[2020-06-15 20:00] VITALS: BP 141/64
[2020-06-16 03:32] VITALS: BP 148/76
[2020-06-16 06:04] LABS: HEMATOCRIT 28.1 % (37.0-47.0); HEMOGLOBIN 9.5 gm/dL (12.0-15.0); MCH 34.1 pg (26.0-34.0); MCHC 33.9 g/dL (28.0-37.0); MCV 100.6 fL (80.0-100.0); RBC 2.79 mil/uL (4.20-5.00); RDW 19.9 % (10.5-14.5); WBC 5.2 thou/uL (4.0-11.0)
[2020-06-16 06:16] LABS: CALCIUM 8.6 mg/dL (8.5-10.1); CREATININE 0.6 mg/dL (0.6-1.0); POTASSIUM 4.1 mmol/L (3.5-5.1)
--- NOTE | 2020-06-16 08:12 | NUR ---
progress pt up with 1 walker and o2 at 4 liters lungs diminished pt has a moderate productive cough states its to hard to get sputum up so she swallows it. iv to left forearm infusing ivf's and intermittent antibiotics. up ad lizette voiding qs had a bn this am continue poc.
--- NOTE | 2020-06-16 11:12 | EKG ---
[facility] [place] [address] ELECTROCARDIOGRAM REPORT Name: SAVANAH TIDWELL Room #: 449-I ADM IN M.R.#: [id number] Admission: 06/13/20 Attend Phys: Mehdi Angela MD Discharge: Date of : 43 Report #: [id number] THIS REPORT FOR: cc: JOSE ROBERTO - [facility]lee family physician/PCP JOSE ROBERTO - Shaylee family physician/PCP Kane Castro MD [facility] THIS REPORT FOR: //name// [facility] Test Date: 2020-06-16 Test Time: 09:45:29 Pat Name: SAVANAH TIDWELL Department: Room: [facility] I Gender: F 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 : 1945 Requested By: Mehdi Angela Order Number: [id number] MD: Kane Castro Measurements Intervals [place] Rate: 91 P: 40 IL: 215 QRS: 42 QRSD: 102 T: 32 QT: 329 QTc: 405 Interpretive Statements Sinus arrhythmia Prolonged [place] interval Compared to ECG 06/13/2020 14:43:44 Sinus tachycardia no longer present Electronically Signed On 06-16-2020 11:11:51 CDT by Kane Castro [email or web address] <ELECTRONICALLY SIGNED> By: Kane Castro MD, FACC 06/16/20 1111 0945 0945 Kane Castro MD, [facility] /EPI
--- NOTE | 2020-06-16 12:16 | NUR ---
PT BECAME SOA WITH TACHYCARDIA SO RESEARCH MICROBIOLOGIST INITIATED-SEE FLOWSHEET
[2020-06-16 14:43] VITALS: BP 122/60
--- NOTE | 2020-06-16 19:27 | NUR ---
Assumed patient care at 0715. Vital signs stable, LSCTA (diminished), ABD soft and non-tender, skin is clean, warm, dry adn intact; she denies pain. Rapid Response called on her this am, as she was having difficulty breathing. Oxygen was set on 5 Liters (it is unknown whom adjusted it to the wrong setting). This nurse turned O2 back down to 4 Liters as ordered. Patient was given her prn dose of Alprazolam. This was helpful. No further concerns during this shift.
[2020-06-16 20:15] VITALS: BP 146/62
[2020-06-17 05:29] LABS: HEMATOCRIT 28.3 % (37.0-47.0); HEMOGLOBIN 9.8 gm/dL (12.0-15.0); MCH 34.2 pg (26.0-34.0); MCHC 34.4 g/dL (28.0-37.0); MCV 99.3 fL (80.0-100.0); RBC 2.85 mil/uL (4.20-5.00); RDW 19.3 % (10.5-14.5); WBC 5.1 thou/uL (4.0-11.0)
[2020-06-17 05:43] LABS: CALCIUM 8.7 mg/dL (8.5-10.1); CREATININE 0.6 mg/dL (0.6-1.0); POTASSIUM 4.3 mmol/L (3.5-5.1)
--- NOTE | 2020-06-17 07:09 | NUR ---
ASSUMED PT CARE AROUND 1930. AXOX4. CALLS APPROPIRATELY FOR HELP. VSS. NO S/S ACUTE DISTRESS NOTED OR REPORTED A THIS TIME. CARE TRANSFFERED TO AM NURSE AT THIS TIME.
[2020-06-17 07:12] VITALS: BP 141/58
--- NOTE | 2020-06-17 11:41 | NUR ---
I have reviewed the student's documentation.
--- NOTE | 2020-06-17 11:58 | NUR ---
PT ADMITTED RELATED TO SOA. CM REVIEWED CHART AND SPOKE WITH CARE TEAM. CM ATTEPTED PC TO PT YESTERDAY WITH NO ANSWER. CM CALLED AND SPOKE WITH PT THIS DAY. PT APPEARED TO BE A&O X4. CM ROLE INTRODUCED. PT INDICATED SHE [place]IV[place] IN [place] AT [facility]. PT INDICATED SHE HAD USED A 4WW TO ASSIST WITH MOBILITY SHANK TAPPER AND HAD BEEN ON 4L O2 THROUGH PROVIDER PLUS SHANK TAPPER. PT INDICATED [facility] BUT STATED THAT [facility] WAS STARTING TO OFFER THEIR HOME THERAPY SERVICES. PT INDICATED SHE MIGHT BE INTERESTED USING THEM UPON DC. PT INDICATED SHE HAS A NURSE THROUGH [facility] WHO HAS BEEN SEEING HER PRIOR TO ADMISSION TO ADMINISTER TB MED. PT INDICATED SHE PLANS TO RETURN HOME ONCE MEDICALLY STABLE. CM TO FOLLOW INDICATED WITH DC PLANNING.
--- NOTE | 2020-06-17 18:46 | NUR ---
Assumed patient care at 0715. Vital signs stable, LSCTA, ABD soft and non-tender, BS x's 4, skin is clean, warm, dry and intact; she has voiced no complaints of pain. Patient continues on O2 @ 4 Liters per nc. Patient is alert and oriented x's 4. She is up with stand-by assist to commode. Patient requested and received Alprazolam 1mg po at 0720. No new medical concerns.
[2020-06-17 19:32] VITALS: BP 145/78
--- NOTE | 2020-06-18 03:04 | NUR ---
PROGRESS PT A/O X4. SKIN C/D/I WITH BRUISING NOTED TO ARMS BACK AND BUTTOCKS. TELEMETRY INTACT READING SR WITH RATES IN 60'S TO 70'S AND A 1ST DEGREE AV BLOCK. LUNGS DIMINISHED PT REPORTS A PRODUCTIVE COUGH BUT NO SPUTUM VISUALIZED BY THIS RN. PT USING ACCESSORY MUSCLES AND HUMS WHEN BREATHING ON 4 LITERS O2 VIA NC. RT TX'S Q4HRS WHILE AWAKE WITH SOME EFFECT. PT DENIES DIARRHEA TODAY. CONTINUE POC.
[2020-06-18 08:00] VITALS: BP 151/65
[2020-06-18] MEDS ORDERED: ELIQUIS2.5 MG PO (09:22)
--- NOTE | 2020-06-18 14:55 | NUR ---
Pt up in chair resting with 02 on at 4lnc.Assessment completed.vss but elevated bp noted.Pt c/o inability to sleep since 3am. Dr Angela notified,no new order noted but Dr Pollard rounded on pt later this am and order noted.Pt will dc in am if stable per her doctor.No further c/o at present.Will continue to monitor.
--- NOTE | 2020-06-18 16:26 | NUR ---
CARE TEAM INDICATED THAT PT WILL LIKELY BE MEDICALLY STABLE TO DISCHARGE [facility]ACK TO [facility] TOMORROW TUESDAY. CM SPOKE WITH PT AND SHE IS RECEPTIVE TO HH SERVICES WANTS TO USE SERVICES OFFERED AT THE FACILITY. CM CALLED FACILITY AND THEY USE [facility] IN THE FACILITY THEY HAVE OP SERVICES THROUGH [facility]. PT IS AGREEABLE WITH REFERRAL BEING SENT TO [facility] FOR REVIEW FOR POSSIBLE ADMISSION. PT INDICATED THAT HER DTR WOULD LIKELY BE ABLE TO PROVIDE TRANSPORT. CM TO FOLLOW INDICATED WITH DC PLANNING.
[2020-06-18 18:56] VITALS: BP 134/65
--- NOTE | 2020-06-19 03:29 | NUR ---
ASSUMED CARE OF PT AT 1900. PT IS A/O X4 AND IS UP SBA TO THE BS. PT C/O OF CONSTIPATION. PRN STOOL SOFTNER GIVEN DIRECTED. NO FURTHER C/O PAIN OR DISCOMFORT. AT THIS TIME, PT IS LYING IN HER BED AND APPEARS TO BE SLEEPING. FALL PRECAUTIONS ARE IN PLACE. HEART MONITOR IN PLACE. PT IS SR/1STAVB. WILL CONTINUE TO MONITOR.
[2020-06-19 07:22] VITALS: BP 138/67
[2020-06-19] MEDS ORDERED: PREDNISONE 10 M10 M1 PO (09:39)
[2020-06-19 10:35] VITALS: BP 138/67
--- NOTE | 2020-06-19 11:28 | NUR ---
ASSUMED CARE OF PATIENT AT SHIFT CHANGE. ASSESSMENT CHARTED. MEDS GIVEN PER DEC. VSS; PATIENT RECIEVING BREATHING TX PER ORDER AND NEEDED. PATIENT IS A&OX4, GETS UP W STANDBY ASSISTANCE BUT IS ANXIOUS. DENIES PAIN BUT VOICED ANXIETY. PRN ANXIETY MED GIVEN. PROVIDER SAW THIS PATIENT AND SPOKE TO HER ABOUT DISCHARGING BACK TO FACILITY W HH. PATIENT COMPLIANT. O2 SATS STABLE ON 4L OF O2 NC. WHEEZING DECREASED. VOICES NO OTHER NEEDS AT THIS TIME. WILL CONTINUE TO MONITOR AND FOLLOW POC
--- NOTE | 2020-06-19 13:33 | NUR ---
CARE TEAM INDICATED THAT PT IS TO [facility]. [facility] PT, OT, NURSING SET UP ORDERS FAXED. PT'S DTR TO PROVIDE TRANSPORT. PT HAS ALL RECOMMENED DME. NO OTHER CM INTERVENTION INDICATED. CASE CLOSED.
--- NOTE | 2020-06-19 19:38 | NUR ---
I AGREE WITH NURSING ASSESSMENT AND NURSING NOTE DONE BY CARLOS/YEAST TENDER.
== END 2020-06-19 18:46 | disposition home health service (06) | DRG 177 ==
LOC: ER 14:17 → 4W 19:33 → EROBS 19:33 → 3W 21:37 → 4W 06-15 00:12
PROVIDERS: Nurse Practitioner; Nurse Practitioner Family; Physician Assistant; ADMIT Hospitalist; ATTEND Hospitalist
DX: A15.0 Tuberculosis of lung (principal); J96.22 Acute and chronic respiratory failure with hypercapnia; J96.21 Acute and chronic respiratory failure with hypoxia; A31.8 Other mycobacterial infections; J44.1 Chronic obstructive pulmonary disease with (acute) exacerbation; R65.10 Systemic inflammatory response syndrome (SIRS) of non-infectious origin without acute organ dysfunction; I50.32 Chronic diastolic (congestive) heart failure; I47.1 Supraventricular tachycardia; E78.5 Hyperlipidemia, unspecified; F41.9 Anxiety disorder, unspecified; I25.10 Atherosclerotic heart disease of native coronary artery without angina pectoris; I48.0 Paroxysmal atrial fibrillation; I73.9 Peripheral vascular disease, unspecified; Z60.2 Problems related to living alone; R91.1 Solitary pulmonary nodule; I27.20 Pulmonary hypertension, unspecified; I71.2 Thoracic aortic aneurysm, without rupture; I11.0 Hypertensive heart disease with heart failure; Z20.828 Contact with and (suspected) exposure to other viral communicable diseases; J45.909 Unspecified asthma, uncomplicated; Z98.41 Cataract extraction status, right eye; Z88.1 Allergy status to other antibiotic agents; Z88.8 Allergy status to other drugs, medicaments and biological substances; Z87.891 Personal history of nicotine dependence; Z86.11 Personal history of tuberculosis; I25.2 Old myocardial infarction; Z95.5 Presence of coronary angioplasty implant and graft; Z79.52 Long term (current) use of systemic steroids; Z83.3 Family history of diabetes mellitus; Z82.5 Family history of asthma and other chronic lower respiratory diseases; Z80.42 Family history of malignant neoplasm of prostate; Z79.82 Long term (current) use of aspirin; Z79.899 Other long term (current) drug therapy
CPT/HCPCS: 10045; 10879

== ENCOUNTER → 2020-09-03 | Outpatient (CLI) | payer OTHER, MEDICARE ==
[~2020-09-03] MED LIST changes: +ELIQUIS2.5 MG PO; +VITAMIN D325 MC5 PO
== END ==
LOC: RAD 13:22
PROVIDERS: ATTEND Specialist
DX: J43.9 Emphysema, unspecified (principal); A15.0 Tuberculosis of lung; J98.4 Other disorders of lung

== ENCOUNTER 2020-09-07 10:37 | Emergency (ER) | payer OTHER, MEDICARE ==
[~2020-09-07] VITALS: Ht 160 cm; Wt 63.5 kg
[2020-09-07 11:38] LABS: ABSOLUTE NEUTROPHILS 6.5 thou/uL (1.4-8.2); BASOPHILS 0.3 % (0.0-2.0); HEMATOCRIT 34.5 % (37.0-47.0); HEMOGLOBIN 11.6 gm/dL (12.0-15.0); LYMPHOCYTES 9.9 % (24.0-44.0); MCHC 33.7 g/dL (28.0-37.0); MONOCYTES 11.1 % (1.0-8.0); PLATELET COUNT 302 thou/uL (150-400); POLYS 78.7 % (36.0-66.0); RBC 3.63 mil/uL (4.20-5.00); RDW 16.4 % (10.5-14.5); WBC 8.3 thou/uL (4.0-11.0)
[2020-09-07 11:41] LABS: ANION GAP 6 mmol/L (7-16); BUN 14 mg/dL (7-18); CALCIUM 10.1 mg/dL (8.5-10.1); CHLORIDE 98 mmol/L (98-107); CO2 34 mmol/L (21-32); CREATININE 0.7 mg/dL (0.6-1.0); GLUCOSE 99 mg/dL (74-106); SODIUM 138 mmol/L (136-145)
[2020-09-07 11:51] LABS: ALBUMIN 3.7 g/dL (3.4-5.0); SGOT 57 U/L (15-37); SGPT 36 U/L (30-65); TOTAL BILIRUBIN 0.6 mg/dL (0.2-1.0); TOTAL PROTEIN 7.1 g/dL (6.4-8.2); TROPONIN-I <0.06 ng/mL (<0.06)
--- NOTE | 2020-09-07 13:37 | EKG ---
[facility] [address] ELECTROCARDIOGRAM REPORT Name: SAVANAH TIDWELL Room #: [facility]#: [id number] Admission: 09/07/20 Attend Phys: Discharge: Date of : 43 Report #: [id number] THIS REPORT FOR: cc: Kurt Burks MD, Bernard O. MD Lundgren,Todd Armendariz MD FAC ~ THIS REPORT FOR: //name// [facility] ED Test Date: 2020-09-07 Test Time: 10:38:46 Pat Name: SAVANAH TIDWELL Department: Room: Gender: F Advanced Practice Nurse Psychotherapist: [facility] : 1945 Requested By: Nayla Kevin Order Number: [id number] MD: Todd Lozano Measurements Intervals [place] Rate: 81 P: 41 CO: 202 QRS: 59 QRSD: 104 T: -1 QT: 365 QTc: 424 Interpretive Statements Sinus rhythm Atrial premature complex Borderline T abnormalities, inferior leads Compared to ECG 06/16/2020 09:45:29 No significant change was found Electronically Signed On 09-07-2020 13:37:37 DIRECTOR OF SURGERY by Todd Lozano [email or web address] <ELECTRONICALLY SIGNED> By: Todd Lozano MD, [facility] 09/07/20 1337 1038 1038 Todd Lozano MD, [facility] /EPI
[2020-09-07 14:38] VITALS: BP 121/61
== END 2020-09-07 14:43 | disposition home or self-care (01) ==
LOC: ER 10:37
PROVIDERS: Physician Assistant
DX: R07.89 Other chest pain (principal); R11.0 Nausea; I10 Essential (primary) hypertension; I48.91 Unspecified atrial fibrillation; E78.5 Hyperlipidemia, unspecified; J44.9 Chronic obstructive pulmonary disease, unspecified; Z79.82 Long term (current) use of aspirin; Z79.899 Other long term (current) drug therapy; Z87.891 Personal history of nicotine dependence; Z88.1 Allergy status to other antibiotic agents; Z88.8 Allergy status to other drugs, medicaments and biological substances; Z20.828 Contact with and (suspected) exposure to other viral communicable diseases

== ENCOUNTER → 2020-12-01 | Outpatient (CLI) | payer OTHER, MEDICARE ==
[2020-12-01 14:16] LABS: HEMATOCRIT 30.7 % (37.0-47.0); HEMOGLOBIN 10.2 gm/dL (12.0-15.0); MCH 31.1 pg (26.0-34.0); MCHC 33.2 g/dL (28.0-37.0); MCV 93.6 fL (80.0-100.0); RBC 3.27 mil/uL (4.20-5.00); WBC 9.6 thou/uL (4.0-11.0)
[2020-12-01 14:37] LABS: ALBUMIN 3.7 g/dL (3.4-5.0); CREATININE 0.6 mg/dL (0.6-1.0); POTASSIUM 3.5 mmol/L (3.5-5.1); TOTAL BILIRUBIN 0.6 mg/dL (0.2-1.0); URIC ACID* 4.6 mg/dL (2.6-6.0)
== END ==
LOC: CAT 13:28
PROVIDERS: ATTEND Specialist
DX: J43.1 Panlobular emphysema (principal); A15.9 Respiratory tuberculosis unspecified; I25.10 Atherosclerotic heart disease of native coronary artery without angina pectoris; M19.011 Primary osteoarthritis, right shoulder; R91.1 Solitary pulmonary nodule; M43.24 Fusion of spine, thoracic region

== ENCOUNTER 2021-01-31 09:19 | Inpatient (IN) | payer OTHER, MEDICARE ==
[~2021-01-31] VITALS: Ht 160 cm; Wt 65.1 kg
--- NOTE | ~2021-01-31 | EMS ---
[address] [address] EMS Patient Care Report Name: SAVANAH TIDWELL Room #: 205-P ADM IN M.R.#: [id number] Admission: 01/31/21 Attend Phys: Nicolas Manuel MD Discharge: Date of : 43 Report #: [id number] THIS REPORT FOR: //name// Report Transmitted: 01/31/2021 13:22 EMS Care Summary [facility] MED-ACT Incident [id number] @ 01/31/2021 08:35 Incident Location [address] [place] [address] Patient SAVANAH TIDWELL Female, 75 Years 1945 Patient Address [address] [place] [address] Patient History Congestive Heart Failure (CHF),Chronic Obstructive Pulmonary Disease (COPD),Hypertension (HTN),Tuberculosis,Pneumonia,Atrial Fibrillation,Abdominal Aortic Aneurysm, Patient Allergies Cephalexin,Other drug allergy, Patient Medications Albuterol, Apixaban, Losartan, Hydrochlorothiazide (Hctz), Hydrocodone, Alprazolam, Prednisone, Clopidogrel, Atorvastatin, Verapamil, Chief Complaint difficulty breathing Disposition Transported No Lights/[place] Dispatch Reason Breathing Problem Transported To [address] [address] EMS Patient Care Report Name: SAVANAH TIDWELL Room #: 205-P ADM IN .R.#: [id number] Admission: 01/31/21 Attend Phys: Nicolas Manuel MD Discharge: Date of : 43 Report #: [id number] Narrative Dispatched to the above location for a reported difficulty breathing. Arrived on scene to find pt. sitting upright in a living room chair, AOx4, in respiratory distress, speaking in phrases, extremely anxious, respiratory rate near 40/min, accessory muscle use, not tripoding, NC O2, attended to by facility staff and fire crew. Pt. relayed that she is having an exacerbation of COPD which began yesterday but became severe today. Pt. stated she has not yet used her nebulized albuterol, reports being put on hospice several days ago for her COPD but stated she wishes to be transported and treated at the hospital. VS, lung sounds, assessment as charted. Administered breathing treatment, repeated one time as charted. Some difficulty administering Tx due to pt. repeatedly taking mask away from face. Pt. also had increased anxiety due to feeling warm, needing to be fanned. Continuous coaching to help pt. slow her breathing helped pt. slow breathing rate from 40's to 20's. Assisted pt. to cot, secured with straps, moved cot to ambulance without incident. Obtained 3 Ld ECG and continued to help calm pt. and curriculum coach to slow her breathing. Biocom to ED, beside report and transfer of care to ED staff. Initial Vitals @09:06P: 121,R: 29,BP: 186/100,EtCO2: 41,SpO2: 97, @09:12P: 118,R: 38,EtCO2: 32,SpO2: 93,GA Suspected: false @09:03P: 125,R: 35,BP: 202/119,EtCO2: 41,SpO2: 93, @09:02P: 122,R: 39,GCS: 15,Temp: 97.2F,EtCO2: 43,SpO2: 92, @PTAP: 130,R: 40,BP: 190/100,GCS: 15,SpO2: 95,Revised Trauma: 11, @08:50P: 124,R: 40,Pain: 0/10,GCS: 15,SpO2: 97, Assessments @08:44MENTAL:Person Oriented,Time Oriented,Event Oriented,Place Oriented,SKIN:HEENT:LUNG SOUNDS:ABDOMEN:PELVIS//GI:EXTREMITIES:Left Leg: Edema,Right Leg: Edema,PULSE:NEURO: Impression Chronic Obstructive Pulmonary Disease (COPD) Procedures @09:12Surgical Mask on PatientResponse: Unchanged@08:45Albuterol - 2.5 Milligrams (mg) - NebulizedResponse: Improved@08:45Ipratropium - 0.5 Milligrams (mg) - NebulizedResponse: Improved@09:01Albuterol - 2.5 Milligrams (mg) - NebulizedResponse: Improved@08:46Oxygen FlowRate: 5 Device: CO2 Nasal Cannula Response: ImprovedSucceeded@09:01Ipratropium - 0.5 Milligrams (mg) - NebulizedResponse: Improved Timeline MANAGER INVESTIGATIONS,BP: 190/100 M,PULSE: 130,RR: 40 R,SPO2: 95 Ox,ETCO2: ,BG: ,PAIN: ,GCS: 15, 08:33,Call Received [facility] [address] [place] [address] EMS Patient Care Report Name: SAVANAH TIDWELL Room #: 205-P [facility] IN Elli.#: [id number] Admission: 01/31/21 Attend Phys: Nicolas Manuel MD Discharge: Date of : 43 Report #: [id number] 08:33,Psap Call 08:35,Dispatched 08:36,En Route 08:41,On Scene 08:43,At Patient 08:45,Albuterol - 2.5 Milligrams (mg) - Nebulized,Response: Improved 08:45,Ipratropium - 0.5 Milligrams (mg) - Nebulized,Response: Improved 08:46,Oxygen FlowRate: 5 Device: CO2 Nasal Cannula Response: ImprovedSucceeded, 08:50,BP: / M,PULSE: 124,RR: 40 R,SPO2: 97 Ox,ETCO2: ,BG: ,PAIN: 0,GCS: 15, 09:01,Albuterol - 2.5 Milligrams (mg) - Nebulized,Response: Improved 09:01,Ipratropium - 0.5 Milligrams (mg) - Nebulized,Response: Improved 09:02,Depart Scene 09:02,BP: / M,PULSE: 122,RR: 39 R,SPO2: 92 Ox,ETCO2: 43 ,BG: ,PAIN: ,GCS: 15, 09:03,BP: 202/119 M,PULSE: 125,RR: 35 R,SPO2: 93 Ox,ETCO2: 41 ,BG: ,PAIN: ,GCS: , 09:06,BP: 186/100 M,PULSE: 121,RR: 29 R,SPO2: 97 Ox,ETCO2: 41 ,BG: ,PAIN: ,GCS: , 09:12,Surgical Mask on Patient,Response: Unchanged 09:12,BP: / M,PULSE: 118,RR: 38 R,SPO2: 93 Ox,ETCO2: 32 ,BG: ,PAIN: ,GCS: , 09:13,At Destination 09:32,Call Closed Disclaimer v1.1 Copyright 2020 [employer] This EMS Care Summary contains data elements from the applicable legal record (which may be displayed differently). It is designed to provide pertinent information for the following purposes: continuity of care, clinical quality, and state data reporting. The complete legal record is available to ED staff and administrators of the receiving hospital in [employer] Patient Tracker. All data is provided "as is."
[~2021-01-31 09:19] MED LIST changes: +HYDROCODON-ACE1 EAC7 PO; +LASIX 40 MG TAB40 M1 PO; +MUCINEX1200 MG PO; +ZANAFLEX4 MG PO
[2021-01-31 09:20] VITALS: BP 124/88
[2021-01-31 09:39] LABS: ABSOLUTE NEUTROPHILS 8.5 thou/uL (1.4-8.2); BASOPHILS 0.8 % (0.0-2.0); EOSINOPHILS 0.4 % (0.0-3.0); HEMATOCRIT 32.8 % (37.0-47.0); LYMPHOCYTES 13.7 % (24.0-44.0); MCHC 33.6 g/dL (28.0-37.0); MCV 92.4 fL (80.0-100.0); MONOCYTES 13.5 % (1.0-8.0); PLATELET COUNT 382 thou/uL (150-400); POLYS 71.6 % (36.0-66.0); RBC 3.55 mil/uL (4.20-5.00); RDW 16.3 % (10.5-14.5); WBC 11.9 thou/uL (4.0-11.0)
[2021-01-31 09:46] LABS: ANION GAP 9 mmol/L (7-16); BUN 19 mg/dL (7-18); CALCIUM 9.1 mg/dL (8.5-10.1); CHLORIDE 98 mmol/L (98-107); CO2 28 mmol/L (21-32); CREATININE 0.8 mg/dL (0.6-1.0); GLUCOSE 157 mg/dL (74-106); POTASSIUM 4.1 mmol/L (3.5-5.1); SODIUM 135 mmol/L (136-145)
[2021-01-31 09:46] LABS: HCO3 27.9 mmol/L (22.0-26.0); PCO2 49.2 mmHg (35.0-45.0); PO2 89.2 mmHg (80.0-100.0); pH 7.371 (7.360-7.450); sO2 96.5 % (92.0-98.0)
[2021-01-31 09:53] LABS: APTT < 20.0 Seconds (24.5-32.8); INR 0.91
[2021-01-31 09:55] LABS: SGOT 22 U/L (15-37); SGPT 31 U/L (14-59); TOTAL BILIRUBIN 0.4 mg/dL (0.2-1.0); TOTAL PROTEIN 7.1 g/dL (6.4-8.2); TROPONIN-I <0.06 ng/mL (<0.06)
[2021-01-31 10:45] VITALS: BP 112/75
[2021-01-31 11:39] VITALS: BP 153/100
[2021-01-31] MEDS ORDERED: ALPRAZOLAM 0.0.25 M1 PO (13:01)
[2021-01-31 15:31] VITALS: BP 120/70
--- NOTE | 2021-01-31 16:58 | NUR ---
PATIENT ADMITTED TO UNIT AT THIS TIME. SHE IS ALERT ORIENTED X4. VERY NERVOUS AND MAKES NUMEROUS DEMANDS. MEDS RECONCILLED AND PRN PAIN MED ADMINISTERED SHE COMPLAIN OF BACK PAIN. SHE WAS ON BIPAP WHEN SHE GOT THE UNIT BUT TRANSITION TO NASAL CANULA SHE WAS CALMER. SPOKE WITH FAMILY ABOUT GOALS OF CARE.
[2021-01-31 19:30] VITALS: BP 113/76
[2021-02-01] VITALS (8 sets, daily range): BP systolic 98–148; BP diastolic 49–72
--- NOTE | 2021-02-01 04:42 | NUR ---
PT IS UP TO BEDSIDE COMODE SPACE OUT ACTIVITY DUE TO SHORT OF BREATH WITH ACTIVITY. WEARS5 LITERS NASAL CANULA. BREATHING TREATMENTS. MEDS GIVEN. TRIED TO PLACE HER ON BIPAP ONCE AND SHE REFUSED IT. CAUSE SHE WASNT GETTING ENOUGH AIR. TRIED TO MAKE COMFORTALBE BUT SEEMS IMMOSIBLE. CALL LIIGHT WITHIN REACH IF NEEDS ASSISTANCE
[2021-02-01 09:50] LABS: HEMATOCRIT 30.6 % (37.0-47.0); HEMOGLOBIN 10.1 gm/dL (12.0-15.0); MCH 30.8 pg (26.0-34.0); MCHC 32.9 g/dL (28.0-37.0); MCV 93.6 fL (80.0-100.0); RBC 3.27 mil/uL (4.20-5.00); RDW 16.8 % (10.5-14.5); WBC 12.2 thou/uL (4.0-11.0)
[2021-02-01 09:58] LABS: CALCIUM 9.6 mg/dL (8.5-10.1); CREATININE 0.8 mg/dL (0.6-1.0); POTASSIUM 3.1 mmol/L (3.5-5.1)
--- NOTE | 2021-02-01 17:52 | NUR ---
PT CARE ASSUMED AT 0700. ASSESSMENTS CHARTED. MEDICATIONS CHARTED. LFA IV. SINUS RHYTHM. BSC. ACHS. PT TAKES RIFAMPIN, ISONIAZID AND PYRAZINAMIDE AT NOON. DR CARBAJAL CHANGED IV ANTIBIOTICS TO ORAL.
--- NOTE | 2021-02-02 07:04 | EKG ---
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 Specialist: : 1945 Requested By: Derick Lebron Order Number: [id number] MD: Kane Castro Measurements Intervals [place] Rate: 117 P: -19 MI: 176 QRS: 44 QRSD: 96 T: 13 QT: 315 QTc: 440 Interpretive Statements Sinus tachycardia Borderline ST elevation, anterolateral leads Compared to ECG 01/19/2021 09:06:15 ST (T wave) deviation now present Sinus rhythm no longer present Atrial premature complex(es) no longer present First degree AV block no longer present T-wave abnormality no longer present Electronically Signed On 02-02-2021 7:04:07 CDT by Kane Castro [email or web address] <ELECTRONICALLY SIGNED> By: Kane Castro MD, [facility] 02/02/21 0704 9 9 Kane Castro MD, [facility] /EPI
--- NOTE | 2021-02-02 07:30 | NUR ---
PATIENTS CARES WERE ASSUMED AT SHIFT CHANGE. PATIENT WAS ASSESSED AND MEDS WERE PASSED. PATIENT HAD ISSUES WITH THE THERMOSTATE ALL OF THIS SHIFT FROM TO HOT TO COLD.ROUNDS WERE DONE AND THE BED IS IN A LOW AND LOCKED POSITION
[2021-02-02 07:41] VITALS: BP 104/52
[2021-02-02 11:55] VITALS: BP 112/65
--- NOTE | 2021-02-02 15:08 | NUR ---
Patient admits from home, independent home. She resides at [facility]. Patient with recent dc from [facility] to home with Hospice. Patient revoked hospice to return to hospital with SOA. Dr Saravia sp with patient with casemgt. He discussed [facility] and home with hospice. Patient appears to be interested in skilled rehab. She is unsure she would want to go to [facility]. Discussed post acute care gave skilled list. Discussed [facility] with patient as Dr Manuel can follow at facility. Plan meeting in am with Hospice. casemgt following.
--- NOTE | 2021-02-02 16:20 | NUR ---
BPCI letter provided to patient, lives in [place] at [facility]
[2021-02-02 19:20] VITALS: BP 92/46
--- NOTE | 2021-02-02 19:41 | NUR ---
ASSUMED CARE SHIFT CHANGE. ASSESSMENTS CHARTED.MEDS GIVEN. VSS. C/O PAIN MANAGED WITH PO PAIN MEDS. O2 SATS WNL 5L O2. PT UP TO COMMODE TOLERATING FAIR. PRN XANAX GIVEN FOR ANXIETY, RELIEF OBTAINED. PLAN FOR POSSIBLE REHAB OR SKILLED STAY BEFORE HOME. CONTINUING POC. REPORT PASSED TO TABBY BYNUM.
--- NOTE | 2021-02-03 03:46 | NUR ---
ASSESSMENTS CHARTED, MEDS CHARTED GIVEN. PATIENT STARTING SHIFT IN RECLINER, BSC NEXT TO HER. SINUS RHYTHM ON TELEMETRY WITH SOME PAC'S. LUNGS DIMINISHED THROUGHOUT 4-5 LITERS OXYGEN DEPENDING ON ACTIVITY. C/O PAIN TWICE DURING SHIFT 7 OR ABOVE ON PAIN. ANXIETY MEDS GIVEN TO HELP WITH DEAL WITH BREATHING ISSUES. FALL PRECAUTIONS IN PLACE DURING SHIFT.
[2021-02-03 04:00] VITALS: BP 127/74
[2021-02-03 07:46] VITALS: BP 112/63
[2021-02-03 11:30] VITALS: BP 104/56
--- NOTE | 2021-02-03 15:26 | NUR ---
Referral faxed to [facility] for possible snf stay with transition to LONG-TERM there per dtr/pt request. Message left for their admissions liason Abdoul to confirm receipt and also call dtr Ana. Hospice revocation rec'd from hospice. Referral also called and faxed to [facility] due to need for bipap and [facility] of OP SNF. , ID, did speak with the pt's dtr and advised she needs 24hr supervision for symptom mngt if at home. Continuing to explore options as pt wanting continued agg tx. She is a DNR. Will follow.
[2021-02-03 15:41] VITALS: BP 131/61; BP 131/610
--- NOTE | 2021-02-03 16:43 | NUR ---
AAOX4. SOA WITH MINIMAL ACTVITY. HOSPICE EVAL. IN AND OUT OF SR, AFIB PER TELE. FALL PRECAUTIONS IN PLACE.
[2021-02-03 19:50] VITALS: BP 102/53
[2021-02-04 04:40] VITALS: BP 128/57
--- NOTE | 2021-02-04 05:22 | NUR ---
ASSESSMENTS CHARTED, MEDS CHARTED GIVEN. PATIENT RESTING IN RECLINER MOST OF SHIFT. 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 C/O CHRONIC BACK PAIN AND ANXIETY DURING SHIFT. PATIENT STATES SHE IS NOT SICK ENOUGH FOR [facility] AND TOO HEALTHY FOR HOSPICE HOUSE. SHE NEEDS TO FIND AN INTERMEDIATE FACILITY TO LIVE AT FOR A WHILE. FALL PRECAUTIONS IN PLACE DURING SHIFT.
[2021-02-04 07:29] VITALS: BP 130/57
[2021-02-04] MEDS ORDERED: AMOX TR-K CLV1 EAC4 PO (08:04)
[2021-02-04] MEDS ORDERED: DOXYCYCLINE HYC50 MG PO (08:04)
[2021-02-04] MEDS ORDERED: BACTRIM DS TAB1 EACH PO (08:04)
[2021-02-04 11:31] VITALS: BP 140/60
[2021-02-04 15:52] VITALS: BP 74/48
--- NOTE | 2021-02-04 16:10 | NUR ---
[facility] facility is full. Sp with Jordyn admissions at [facility] their sister facility. she reports they are full no beds avail. Sp with dtr regarding options. plan for [facility]. Arranged wc van for 1500. Orders received. Spoke with patient who does not feel ready. She reports she cannot discharge today. She became anxious. Sp with phys, plan to hold dc until am. Notfied [facility]. Notified dtr and patient.
--- NOTE | 2021-02-04 19:53 | NUR ---
Assumed pt care this am, VS stable. SOB very noticeable with minimal activity. Maintained on 4 liters of O2, pain is managed with medications. Prefers to be in the recliner vs the bed. +1 edema on both ankles. Pt will be dc to [facility] tomorrow. Pain is managed with medications partial relief isn oted. POC followed. had a bm that gave her some releif for the right rib pain. Endorsed to the night nurse.
[2021-02-04 19:56] VITALS: BP 98/53
[2021-02-04 23:15] VITALS: BP 114/54
[2021-02-05 05:25] VITALS: BP 119/64
[2021-02-05 07:53] VITALS: BP 92/50
[2021-02-05] MEDS ORDERED: HYDROCODON-ACE1 EAC7 PO (08:02)
--- NOTE | 2021-02-05 11:09 | NUR ---
Pt dcing to snf at [facility] of OP today. They have arranged a w/c van with o2 for 1pm pickup. Pt and dtr updated at bedside and agreeable to the dc plan. Nursing will call report and chart copy is ready to be sent with the pt. Pt to be skilled for therapy and pulm/pain mngt.
[2021-02-05 11:22] VITALS: BP 136/48
--- NOTE | 2021-02-05 13:24 | NUR ---
report called to [facility] [address] [facility]- [phone]. report called to MISA Gray. pt discharged with packet of information created by Natasha Lopez, Case Management. Ana, daughter present providing support to her mother. pt transferred in wheelchair with [facility] staff member transporting to facility.
== END 2021-02-05 13:23 | DRG 871 ==
LOC: ER 09:19 → EROBS 10:19 → 2N 10:19
PROVIDERS: Emergency Medicine; ADMIT Family Medicine; ATTEND Family Medicine
PROC: 5A09357 Assistance with Respiratory Ventilation, Less than 24 Consecutive Hours, Continuous Positive Airway Pressure (ICD-10-PCS; principal; 2021-01-31)
PROC: 5A09357 Assistance with Respiratory Ventilation, Less than 24 Consecutive Hours, Continuous Positive Airway Pressure (ICD-10-PCS; 2021-02-01)
PROC: 5A09357 Assistance with Respiratory Ventilation, Less than 24 Consecutive Hours, Continuous Positive Airway Pressure (ICD-10-PCS; 2021-02-02)
PROC: 5A09357 Assistance with Respiratory Ventilation, Less than 24 Consecutive Hours, Continuous Positive Airway Pressure (ICD-10-PCS; 2021-02-03)
PROC: 5A09357 Assistance with Respiratory Ventilation, Less than 24 Consecutive Hours, Continuous Positive Airway Pressure (ICD-10-PCS; 2021-02-04)
DX: A41.9 Sepsis, unspecified organism (principal); J96.21 Acute and chronic respiratory failure with hypoxia; A15.0 Tuberculosis of lung; J44.1 Chronic obstructive pulmonary disease with (acute) exacerbation; I50.32 Chronic diastolic (congestive) heart failure; A31.8 Other mycobacterial infections; I47.1 Supraventricular tachycardia; Z20.822 Contact with and (suspected) exposure to COVID-19; J45.909 Unspecified asthma, uncomplicated; F41.9 Anxiety disorder, unspecified; I48.0 Paroxysmal atrial fibrillation; I73.9 Peripheral vascular disease, unspecified; E78.5 Hyperlipidemia, unspecified; M47.896 Other spondylosis, lumbar region; I11.0 Hypertensive heart disease with heart failure; I71.2 Thoracic aortic aneurysm, without rupture; I25.10 Atherosclerotic heart disease of native coronary artery without angina pectoris; E87.6 Hypokalemia; R53.81 Other malaise; Z79.01 Long term (current) use of anticoagulants; Z98.41 Cataract extraction status, right eye; Z95.5 Presence of coronary angioplasty implant and graft; Z87.891 Personal history of nicotine dependence; I25.2 Old myocardial infarction; Z88.1 Allergy status to other antibiotic agents; Z88.8 Allergy status to other drugs, medicaments and biological substances; Z79.899 Other long term (current) drug therapy
CPT/HCPCS: 10081